=== PATIENT | male | born 1960 | race American Indian/Alaskan Native ===

== ENCOUNTER 2017-10-07 11:08 | Inpatient (IN) | payer OTHER ==
[2017-10-07] MEDS ORDERED: NACL 0.9% 500 ML 500 ML IV ONE ×2 (11:24→14:42)
[2017-10-07] MEDS ORDERED: TYLENOL ONE (11:25)
[2017-10-07] MEDS ORDERED: VANCOMYCIN PHARMACY TO DOSE IV SCH (12:00)
[2017-10-07 12:17] LABS: Basophils # (Auto) 0.2 K/mm3 (0.0-0.1); Basophils % (Auto) 1.1 % (0.0-1.8); Eosinophils # (Auto) 0.2 K/mm3 (0.0-0.4); Eosinophils % (Auto) 1.1 % (0.0-4.3); Hematocrit 20.1 % (35.5-45.6); Hemoglobin 6.8 gm/dl (11.8-15.2); Lymphocytes % (Auto) 10.6 % (13.4-35.0); Mean Corpuscular HGB Conc 34 % (32-34); Mean Corpuscular Hemoglobin 35 pg (28-32); Mean Corpuscular Volume 102 fl (84-94); Monocytes # (Auto) 1.4 K/mm3 (0.0-0.8); Monocytes % (Auto) 7.4 % (0.0-7.3); Platelet Count 184 K/mm3 (140-440); Red Blood Count 1.97 M/mm3 (3.65-5.03); Red Cell Distribution Width 16.8 % (13.2-15.2)
[2017-10-07 12:30] LABS: INR 1.36 (0.87-1.13)
[2017-10-07 12:31] LABS: Partial Thromboplastin Time 54.1 Sec. (24.2-36.6)
--- NOTE | 2017-10-07 12:38 | XRay Report ---
AP CHEST :10/07/17 11:08:00 CLINICAL: Sepsis COMPARISON:None. FINDINGS: Normal heart and pulmonary vasculature. The lungs are normally expanded and clear. The bones and soft tissues are normal. IMPRESSION: Normal chest.
[2017-10-07] MEDS ORDERED: ZOSYN/NS 4.5GM/100ML 4.5 GM/100 ML VIAL IV ONE (13:00)
[2017-10-07 13:14] LABS: Albumin 2.4 g/dL (3.9-5); Calcium 7.9 mg/dL (8.4-10.2); Creatine Kinase MB < 1.0 ng/mL (0.0-4.0)
--- NOTE | 2017-10-07 13:45 | Emergency Department Report ---
ED General Adult HPI - General Chief complaint: Dyspnea/Respdistress Stated complaint: CHEST PAIN Time Seen by Provider: 10/07/17 13:22 Source: patient Mode of arrival: Ambulatory Limitations: No Limitations - History of Present Illness Initial comments: This is a 57 year old man that states that he's never been hospitalized and has no chronic medical problems. He states that he doesn't drink "much". However, on further discussion the patient is a regular consumer of vodka and states he does get shaky/tremulous when he does not consume alcohol. He has never had a seizure nor any recent fall, injury or loss of consciousness. He states he was not aware of having a fever nor has he had chills or rigors. He has had abdominal pain which has been largely in the epigastric area. He states that he has been having diarrhea but it is not black. He states he's been unable to eat recently. He denies any signs of GI bleeding at all. He states he has not been taking Pepto-Bismol or [id number] medications. The patient states that he works at [employer]. His coworkers have been encouraging him to go to the doctor. They finally insisted upon it as a noticed he was jaundiced. He continued to work up until coming to the emergency department. He states he has been very short of breath going up stairs. He denies chest pain or cough. Patient states he's had no recent travel. He denies sick contacts as well. He states he has been since July. He states he has had a single partner for 26 years and thus could not have HIV. He has not had a recent test thereof. He has no history of known hepatitis or liver disease. -: Gradual, week(s) Location: abdomen Radiation: non-radiation Quality: aching Consistency: intermittent Improves with: none Worsens with: eating Associated Symptoms: shortness of breath, weakness Treatments Prior to Arrival: none - Related Data Allergies Allergy/AdvReac Type Severity Reaction Status Date / Time No Known Allergies Allergy Verified 10/07/17 11:38 ED Review of Systems ROS: Stated complaint: CHEST PAIN Other details as noted in HPI Constitutional: weakness. denies: chills, fever Eyes: denies: eye pain, eye discharge, vision change ENT: denies: ear pain, throat pain Respiratory: shortness of breath, SOB with exertion. denies: cough, wheezing Cardiovascular: denies: chest pain, palpitations Endocrine: no symptoms reported Gastrointestinal: abdominal pain, nausea, diarrhea Genitourinary: denies: urgency, dysuria Musculoskeletal: denies: back pain, joint swelling, arthralgia Skin: denies: rash, lesions Neurological: denies: headache, weakness, paresthesias Psychiatric: denies: anxiety, depression Hematological/Lymphatic: denies: easy bleeding, easy bruising ED Past Medical Hx - Past Medical History Previous Medical History?: No - Surgical History Past Surgical History?: No - Social History Smoking Status: Never Smoker Substance Use Type: Alcohol ED Physical Exam - General Limitations: No Limitations General appearance: other (chronically ill-appearing) - Head Head exam: Present: atraumatic, other (some alopecia) - Eye Eye exam: Present: PERRL, EOMI, scleral icterus - ENT ENT exam: Present: mucous membranes dry (no yeast noted), other (Black tongue) - Neck Neck exam: Present: normal inspection - Respiratory Respiratory exam: Present: normal lung sounds bilaterally. Absent: respiratory distress - Cardiovascular Cardiovascular Exam: Present: regular rate, normal rhythm. Absent: systolic murmur, diastolic murmur, rubs, gallop - GI/Abdominal GI/Abdominal exam: Present: soft, distended, tenderness (some epigastric discomfort to palpation), normal bowel sounds, organomegaly (hepatomegaly), pulsatile mass. Absent: guarding, rebound, rigid, mass, bruit - Extremities Exam Extremities exam: Present: normal inspection - Back Exam Back exam: Present: normal inspection. Absent: CVA tenderness (R), CVA tenderness (L) - Neurological Exam Neurological exam: Present: alert, oriented X3, CN II-XII intact. Absent: motor sensory deficit - Psychiatric Psychiatric exam: Present: normal affect, normal mood - Skin Skin exam: Present: warm, dry, intact, normal color. Absent: rash ED Course Vital Signs 10/07/17 11:15 Temperature 102.7 F H Pulse Rate 127 H Respiratory 22 Rate Blood Pressure 154/83 O2 Sat by Pulse 100 Oximetry - Reevaluation(s) Reevaluation #1: The patient was treated empirically for sepsis with IV fluids, Zosyn, vancomycin. A transfusion of 2 units of blood was ordered. The patient was given Protonix as I suspect GI bleeding would be not unlikely in this patient. He is given a milligram of Ativan prophylactically as he will undoubtably withdraw from alcohol. A CT of his abdomen was suggestive of cirrhosis, cholecystitis and cholelithiasis. Dr. Fitzpatrick is aware of all of the above findings. I have also ordered an ultrasound to further delineate the patient's gallbladder pathology and to help eliminate the possibility of hepatic obstruction. A lipase is pending. Further care and Consultation will be at the discretion of Dr. Fitzpatrick. 10/07/17 15:51 ED Medical Decision Making - Lab Data Result diagrams: 10/07/17 11:44 10/07/17 11:44 Laboratory Results - last 24 hr 10/07/17 10/07/17 10/07/17 11:44 11:44 11:44 WBC 19.3 H RBC 1.97 L Hgb 6.8 L Hct 20.1 L MCV 102 H MCH 35 H MCHC 34 RDW 16.8 H Plt Count 184 Lymph % (Auto) 10.6 L Wilkes % (Auto) 7.4 H Eos % (Auto) 1.1 Baso % (Auto) 1.1 Lymph # 2.0 Wilkes # 1.4 H Eos # 0.2 Baso # 0.2 H Seg Neutrophils % 79.8 H Seg Neutrophils # 15.4 H PT 17.6 H INR 1.36 H APTT 54.1 H VBG pH Sodium 131 L Potassium 4.9 Chloride 94.8 L Carbon Dioxide 16 L Anion Gap 25 BUN 27 H Creatinine 1.6 H Estimated GFR 54 BUN/Creatinine Ratio 17 Glucose 116 H Lactic Acid Calcium 7.9 L Magnesium Total Bilirubin 13.40 H AST 223 H ALT 28 Alkaline Phosphatase 107 Ammonia Total Creatine Kinase CK-MB (CK-2) CK-MB (CK-2) Rel Index Troponin T NT-Pro-B Natriuret Pep Total Protein 9.6 H Albumin 2.4 L Albumin/Globulin Ratio 0.3 Blood Type Antibody Screen 10/07/17 10/07/17 10/07/17 11:44 11:44 11:44 WBC RBC Hgb Hct MCV MCH MCHC RDW Plt Count Lymph % (Auto) [place] % (Auto) Eos % (Auto) Baso % (Auto) Lymph # Wilkes # Eos # Baso # Seg Neutrophils % Seg Neutrophils # PT INR APTT VBG pH 7.363 Sodium Potassium Chloride Carbon Dioxide Anion Gap BUN Creatinine Estimated GFR BUN/Creatinine Ratio Glucose Lactic Acid 4.50 H* Calcium Magnesium 1.30 L Total Bilirubin AST ALT Alkaline Phosphatase Ammonia Total Creatine Kinase 31 L CK-MB (CK-2) < 1.0 CK-MB (CK-2) Rel Index 3.2 Troponin T NT-Pro-B Natriuret Pep 766.8 Total Protein Albumin Albumin/Globulin Ratio Blood Type Antibody Screen 10/07/17 10/07/17 10/07/17 11:44 11:44 11:44 WBC RBC Hgb Hct MCV MCH MCHC RDW Plt Count Lymph % (Auto) [place] % (Auto) Eos % (Auto) Baso % (Auto) Lymph # [place] # Eos # Baso # Seg Neutrophils % Seg Neutrophils # PT INR APTT VBG pH Sodium Potassium Chloride Carbon Dioxide Anion Gap BUN Creatinine Estimated GFR BUN/Creatinine Ratio Glucose Lactic Acid Calcium Magnesium Total Bilirubin AST ALT Alkaline Phosphatase Ammonia 55.0 Total Creatine Kinase CK-MB (CK-2) CK-MB (CK-2) Rel Index Troponin T 0.022 NT-Pro-B Natriuret Pep Total Protein Albumin Albumin/Globulin Ratio Blood Type O POSITIVE Antibody Screen Negative - EKG Data -: EKG Interpreted by Me EKG shows normal: sinus rhythm Rate: tachycardia - EKG Data Interpretation: other (left axis deviation, nonspecific ST-T wave changes) - Radiology Data Radiology results: report reviewed interpreted by me: Chest x-ray no acute process. CT of the abdomen and pelvis per the radiologist cirrhosis consider primary biliary cirrhosis. Roll of the gallbladder mildly thickened. Calcified gallstones dependent in the gallbladder. Sludge present. Denies specific lymph nodes in the retroperitoneum. Diverticulosis. Critical Care Time: Yes Critical care time in (mins) excluding proc time.: 110 Critical care attestation.: If time is entered above; I have spent that time in minutes in the direct care of this critically ill patient, excluding procedure time. ED Disposition Clinical Impression: Acute cholecystitis Sepsis Qualifiers: Sepsis type: sepsis due to unspecified organism Qualified Code(s): A41.9 - Sepsis, unspecified organism Cirrhosis Qualifiers: Hepatic cirrhosis type: unspecified hepatic cirrhosis Ascites presence: without ascites Qualified Code(s): K74.60 - Unspecified cirrhosis of liver Anemia Qualifiers: Anemia type: unspecified type Qualified Code(s): D64.9 - Anemia, unspecified Disposition: DC-09 OP ADMIT IP TO THIS HOSP Is pt being admited?: Yes Does the pt Need Aspirin: No (suspect GI bleeding) Condition: Stable Referrals: LIBBY WILKERSON MD [Primary Care Provider] - 3-5 Days
[2017-10-07] MEDS ORDERED: NACL 0.9% 1000 ML 1,000 ML ONE (13:51)
[2017-10-07] MEDS ORDERED: VANCOMYCIN 1,500 MG in NACL 0.9% 500 ML 500 ML IV ONE (14:00)
--- NOTE | 2017-10-07 14:59 | Cat Scan Report ---
FINAL REPORT PROCEDURE: CT ABDOMEN PELVIS WO CON TECHNIQUE: Computerized axial tomography of the abdomen and pelvis was performed without intravenous contrast. This study is performed without intravascular contrast material and its sensitivity for abdominal and pelvic pathology, including neoplasms, inflammation, abscess, free fluid, thrombosis, arterial dissection and infarction, is reduced compared with a contrast enhanced study. HISTORY: juandice sepsis COMPARISON: No prior studies are available for comparison. FINDINGS: Lower Lung richards: No focal abnormality seen. Upper Abdomen: There is heterogeneous lacy decreased density extending throughout the left lobe of the liver and a large portion of the right lobe of the liver. The appearance suggest cirrhosis, consider primary biliary cirrhosis. The liver is otherwise unremarkable. Carroll of the gallbladder mildly thickened. There appear to be partially calcified gallstones lying dependently in the gallbladder. There may also be sludge present. The adrenal glands, the pancreas and spleen are unremarkable although suboptimally seen due to motion artifact. Kidneys, Ureters and Urinary bladder: Kidneys and ureters are unremarkable. Urinary bladder is only partially filled and shows no gross abnormality. Retroperitoneum: No evidence of abdominal aortic aneurysm. Minimal calcified plaquing seen in the iliac arteries. Nonspecific subcentimeter lymph nodes are seen in the retroperitoneum. No pathologically enlarged lymph nodes are identified. Bowel: Mild diverticulosis seen left side of the colon without evidence of diverticulitis. There is no evidence of bowel obstruction ascites or free intraperitoneal gas. There is mild decreased density seen in the submucosal layer throughout the right side of the colon and proximal transverse colon. I cannot exclude a mild nonspecific colitis. Bowel loops otherwise are unremarkable. No evidence of bowel obstruction ascites or free intraperitoneal gas. Mild diverticulosis is seen in the terminal ileum. The appendix is not clearly visualized. Reproductive organs: There is mild nonspecific prostate enlargement. Other: No acute bony abnormalities are seen. IMPRESSION: Heterogeneous lacy decreased density extending throughout the left lobe of the liver and a large portion the right lobe of the liver. The appearance suggest cirrhosis, consider primary biliary cirrhosis. Scattered low-density masses not entirely excluded. Consider follow-up contrast-enhanced CT scan for further evaluation. Graph cholelithiasis. Gallbladder carroll mildly thickened suggesting chronic or acute cholecystitis. Mild colonic diverticulosis left side of the colon without evidence of diverticulitis. Mild prominence submucosal layer right side of the colon. I cannot exclude a mild nonspecific colitis. There is mild nonspecific prostate enlargement. No other abnormalities are visualized
[2017-10-07] MEDS ORDERED: PROTONIX IV ONE (15:00)
[2017-10-07] MEDS ORDERED: SODIUM CHLORIDE FLUSH SYRINGE 10 ML IV PRN (16:22)
[2017-10-07] MEDS ORDERED: ZOFRAN IV PRN (16:22)
[2017-10-07] MEDS ORDERED: TYLENOL PO PRN (16:22)
--- NOTE | 2017-10-07 16:27 | Ultrasound Report ---
FINAL REPORT PROCEDURE: US ABDOMEN LIMITED TECHNIQUE: Real-time sonography was performed of the right upper quadrant with image documentation. CPT 16633 HISTORY: abd pain cholecystitis COMPARISON: Prior CT scan abdomen and pelvis 10/07/2017 FINDINGS: Examination the right upper quadrant shows is multiple gallstones within the gallbladder. There also appears to be sludge present. Gallbladder was not tender to palpation although the carroll mildly thickened. I cannot exclude chronic cholecystitis. Liver echogenicity appears heterogeneous. No discrete masses are seen. No ascites is visualized. The right kidney is unremarkable measuring 12 centimeters in length. The pancreas is not visualized. Common bile duct is normal caliber measuring 4.7 millimeters.. IMPRESSION: There is evidence of cholelithiasis. There also appears to be sludge present. Gallbladder carroll mildly thickened although not tender to palpation. The appearance may be related to chronic cholecystitis. If further evaluation is clinically indicated nuclear medicine HIDA scan could be performed. Heterogeneous echogenicity of the liver diffusely without discrete masses may represent cirrhosis. No ascites is visualized. Right kidney is unremarkable. The pancreas is not visualized.
[2017-10-07] MEDS ORDERED: LIBRIUM PO PRN ×2 (16:34)
[2017-10-07] MEDS ORDERED: HALDOL IV PRN (16:34)
[2017-10-07] MEDS ORDERED: ATIVAN IV PRN ×3 (16:34)
--- NOTE | 2017-10-07 16:42 | History and Physical Report ---
History of Present Illness Date of examination: 10/07/17 Date of admission: 10/07/2017 Chief complaint: Chief complaint: Abdominal pain for 2 days Diarrhea for 2 days. History of present illness: History of Present Illness: 57-year-old -[place] male with no significant past medical history comes in for abdominal pain in the epigastric and right upper quadrant. Abdominal pain has been going on for the last 2-3 days. Also associated with fever. No chills. No dysuria. Patient consumes alcohol regular basis but not excessively. Patient apparently gets tremulous and does not drink alcohol for a few days. Pain is a moderate scale of 1-10. Intermittent and sharp in nature. Patient has been feeling very weak and loss of appetite. No exacerbating or relieving factors except that food intake exacerbates pain sometimes. Patient also has loose stools, couple of times a day. No blood or melena. Past Medical History Previous Medical History?: No Surgical History Past Surgical History?: No Social History Smoking Status: Never Smoker Substance Use Type: Alcohol on a regular basis in the form of vodka. Family history: Hypertension Review of Systems ROS: Stated complaint: CHEST PAIN Other details as noted in HPI Constitutional: weakness. denies: chills, fever Eyes: denies: eye pain, eye discharge, vision change ENT: denies: ear pain, throat pain Respiratory: shortness of breath, SOB with exertion. denies: cough, wheezing Cardiovascular: denies: chest pain, palpitations Endocrine: no symptoms reported Gastrointestinal: abdominal pain, nausea, diarrhea Genitourinary: denies: urgency, dysuria Musculoskeletal: denies: back pain, joint swelling, arthralgia Skin: denies: rash, lesions Neurological: denies: headache, weakness, paresthesias Psychiatric: denies: anxiety, depression Hematological/Lymphatic: denies: easy bleeding, easy bruising Medications and Allergies Allergies Allergy/AdvReac Type Severity Reaction Status Date / Time No Known Allergies Allergy Verified 10/07/17 11:38 Active Meds: Active Medications Acetaminophen (Tylenol) 650 mg PO Q4H PRN PRN Reason: Pain MILD(1-3)/Fever >100.5/MEYER Chlordiazepoxide HCl (Librium) 50 mg PO Q1H PRN PRN Reason: CIWA-Ar 8-15 Chlordiazepoxide HCl (Librium) 100 mg PO Q1H PRN PRN Reason: CIWA-Ar 16-25 Haloperidol Lactate (Haldol) 5 mg IV Q1H PRN PRN Reason: Unrespon. to mult. doses BZD's Heparin Sodium (Porcine) (Heparin) 5,000 unit SUB-Q Q12HR DAJA Vancomycin HCl (Vancomycin/0.45 Ns 1 Gm/250 Ml) 1 gm in 250 mls @ 167.007 mls/ hr IV Q24H DAJA Sodium Chloride (Nacl 0.9% 1000 Ml) 1,000 mls @ 100 mls/hr IV DIRECT DAJA Lorazepam (Ativan) 2 mg IV Q1H PRN PRN Reason: CIWA-Ar 8-15 Lorazepam (Ativan) 4 mg IV Q1H PRN PRN Reason: CIWA-Ar 16-25 Lorazepam (Ativan) 4 mg IV Q15MIN PRN PRN Reason: CIWA-Ar >25 Morphine Sulfate (Morphine) 2 mg IV Q4H PRN PRN Reason: Pain, Moderate (4-6) Ondansetron HCl (Zofran) 4 mg IV Q8H PRN PRN Reason: Nausea And Vomiting Phenobarbital (Phenobarbital) 130 mg IV Q15M PRN PRN Reason: DT's refractory to BZD's Sodium Chloride (Sodium Chloride Flush Syringe 10 Ml) 10 ml IV BID DAJA Sodium Chloride (Sodium Chloride Flush Syringe 10 Ml) 10 ml IV PRN PRN PRN Reason: LINE FLUSH Vancomycin HCl (Vancomycin Pharmacy To Dose) 1 each IV PKCONSULT DAJA; Protocol Exam - Physical Exam Narrative exam: Laying in bed comfortably in slight distress secondary to abdominal pain - Constitutional Vitals: Temp Pulse Resp BP Pulse Ox 102.7 F H 127 H 22 154/83 100 10/07/17 11:15 10/07/17 11:15 10/07/17 11:15 10/07/17 11:15 10/07/17 11:15 General appearance: Present: no acute distress, well-nourished - EENT Eyes: Present: PERRL ENT: hearing intact, clear oral mucosa - Neck Neck: Present: supple, normal ROM - Respiratory Respiratory effort: normal Respiratory: bilateral: CTA - Cardiovascular Heart rate: 76 Rhythm: regular Heart Sounds: Present: S1 & S2. Absent: rub, click - Extremities Extremities: no ischemia, pulses intact, pulses symmetrical, No edema Peripheral Pulses: within normal limits - Abdominal General gastrointestinal: Present: soft, tender (right upper quadrant tenderness ), non-distended, normal bowel sounds Male genitourinary: Present: normal - Rectal Rectal Exam: stool brown - Integumentary Integumentary: Present: clear, warm, dry - Musculoskeletal Musculoskeletal: gait normal, strength equal bilaterally - Psychiatric Psychiatric: appropriate mood/affect, intact judgment & insight - Neurologic Neurologic: CNII-XII intact, moves all extremities - Allied Health Allied health notes reviewed: nursing, case management Results - Labs CBC & Chem 7: 10/07/17 11:44 10/07/17 11:44 Labs: Laboratory Last Values WBC 19.3 K/mm3 (4.5-11.0) H 10/07/17 11:44 RBC 1.97 M/mm3 (3.65-5.03) L 10/07/17 11:44 Hgb 6.8 gm/dl (11.8-15.2) L 10/07/17 11:44 Hct 20.1 % (35.5-45.6) L 10/07/17 11:44 MCV 102 fl (84-94) H 10/07/17 11:44 MCH 35 pg (28-32) H 10/07/17 11:44 MCHC 34 % (32-34) 10/07/17 11:44 RDW 16.8 % (13.2-15.2) H 10/07/17 11:44 Plt Count 184 K/mm3 (140-440) 10/07/17 11:44 Lymph % (Auto) 10.6 % (13.4-35.0) L 10/07/17 11:44 [place] % (Auto) 7.4 % (0.0-7.3) H 10/07/17 11:44 Eos % (Auto) 1.1 % (0.0-4.3) 10/07/17 11:44 Baso % (Auto) 1.1 % (0.0-1.8) 10/07/17 11:44 Lymph # 2.0 K/mm3 (1.2-5.4) 10/07/17 11:44 [place] # 1.4 K/mm3 (0.0-0.8) H 10/07/17 11:44 Eos # 0.2 K/mm3 (0.0-0.4) 10/07/17 11:44 Baso # 0.2 K/mm3 (0.0-0.1) H 10/07/17 11:44 Seg Neutrophils % 79.8 % (40.0-70.0) H 10/07/17 11:44 Seg Neutrophils # 15.4 K/mm3 (1.8-7.7) H 10/07/17 11:44 PT 17.6 Sec. (12.2-14.9) H 10/07/17 11:44 INR 1.36 (0.87-1.13) H 10/07/17 11:44 APTT 54.1 Sec. (24.2-36.6) H 10/07/17 11:44 VBG pH 7.363 (7.320-7.420) 10/07/17 11:44 Sodium 131 mmol/L (137-145) L 10/07/17 11:44 Potassium 4.9 mmol/L (3.6-5.0) 10/07/17 11:44 Chloride 94.8 mmol/L (98-107) L 10/07/17 11:44 Carbon Dioxide 16 mmol/L (22-30) L 10/07/17 11:44 Anion Gap 25 mmol/L 10/07/17 11:44 BUN 27 mg/dL (9-20) H 10/07/17 11:44 Creatinine 1.6 mg/dL (0.8-1.5) H 10/07/17 11:44 Estimated GFR 54 ml/min 10/07/17 11:44 BUN/Creatinine Ratio 17 % 10/07/17 11:44 Glucose 116 mg/dL (75-100) H 10/07/17 11:44 Lactic Acid 4.50 mmol/L (0.7-2.0) H* 10/07/17 14:29 Calcium 7.9 mg/dL (8.4-10.2) L 10/07/17 11:44 Magnesium 1.30 mg/dL (1.7-2.3) L 10/07/17 11:44 Total Bilirubin 13.40 mg/dL (0.1-1.2) H 10/07/17 11:44 AST 223 units/L (5-40) H 10/07/17 11:44 ALT 28 units/L (7-56) 10/07/17 11:44 Alkaline Phosphatase 107 units/L (35-129) 10/07/17 11:44 Ammonia 55.0 umol/L (25-60) 10/07/17 11:44 Total Creatine Kinase 31 units/L (55-170) L 10/07/17 11:44 CK-MB (CK-2) < 1.0 ng/mL (0.0-4.0) 10/07/17 11:44 CK-MB (CK-2) Rel Index 3.2 (0-4) 10/07/17 11:44 Troponin T 0.022 ng/mL (0.00-0.029) 10/07/17 11:44 NT-Pro-B Natriuret Pep 766.8 pg/mL (0-900) 10/07/17 11:44 Total Protein 9.6 g/dL (6.3-8.2) H 10/07/17 11:44 Albumin 2.4 g/dL (3.9-5) L 10/07/17 11:44 Albumin/Globulin Ratio 0.3 % 10/07/17 11:44 Lipase 61 units/L (13-60) H 10/07/17 11:44 Blood Type O POSITIVE 10/07/17 11:44 Antibody Screen Negative 10/07/17 11:44 Crossmatch See Detail 10/07/17 11:44 - Imaging and Cardiology Imaging and Cardiology: CT abdomen and pelvis IMPRESSION: Heterogeneous lacy decreased density extending throughout the left lobe of the liver and a large portion the right lobe of the liver. The appearance suggest cirrhosis, consider primary biliary cirrhosis. Scattered low-density masses not entirely excluded. Consider follow-up contrast-enhanced CT scan for further evaluation. Graph cholelithiasis. Gallbladder carroll mildly thickened suggesting chronic or acute cholecystitis. Mild colonic diverticulosis left side of the colon without evidence of diverticulitis. Mild prominence submucosal layer right side of the colon. I cannot exclude a mild nonspecific colitis. There is mild nonspecific prostate enlargement. No other abnormalities are visualized Assessment and Plan Advance Directives: Yes (full code) VTE prophylaxis?: Chemical Plan of care discussed with patient/family: Yes - Patient Problems (1) Acute cholecystitis Current Visit: Yes Status: Acute Plan to address problem: CT abdomen and clinical findings suggestive of acute cholecystitis. Also there may be common bile duct obstruction because of his bilirubin being in the 13.40. Also transaminitis present. AST is 223. ALT is 28. MRCP ordered Surgery consult and GI consult ordered. Patient is started on IV antibiotics--IV Zosyn. (2) Sepsis Current Visit: Yes Status: Acute Qualifiers: Sepsis type: sepsis due to unspecified organism Qualified Code(s): A41.9 - Sepsis, unspecified organism Plan to address problem: Probably from the cholecystitis. Patient initiated on IV Zosyn. Lactic acid is high 4.50 and a repeat on is 4.20 (3) Anemia Current Visit: Yes Status: Chronic Qualifiers: Anemia type: unspecified type Qualified Code(s): D64.9 - Anemia, unspecified Plan to address problem: Probably nutritional, his alcoholism. MCV and MCH are high. I'm expecting B12 and folic acid deficiency. Iron and folic acid and B12 levels ordered (4) Acute kidney injury Current Visit: Yes Status: Acute Plan to address problem: Consider vasomotor nephropathy and dehydration I reviewed fluids for the time being and recheck the BUN/creatinine (5) Hypergammaglobulinemia, unspecified Current Visit: Yes Status: Chronic Plan to address problem: SPEP and UPEP ordered Probably secondary to cirrhosis Patient may have hepatic cirrhosis secondary to alcohol dependence (6) EtOH dependence Current Visit: Yes Status: Chronic Qualifiers: Substance use status: uncomplicated Qualified Code(s): F10.20 - Alcohol dependence, uncomplicated Plan to address problem: CIWA protocol was added to prevent DTs (7) DVT prophylaxis Current Visit: Yes Status: Acute Plan to address problem: Heparin added
[2017-10-07] MEDS ORDERED: NACL 0.9% 1000 ML 1,000 ML IV SCH (17:00)
[2017-10-07] MEDS ORDERED: DILAUDID IV PRN ×2 (17:04→17:08)
[2017-10-07] MEDS ORDERED: NACL 0.9% 500 ML 500 ML ONE (17:05)
[2017-10-07 17:22] LABS: Albumin 2.1 g/dL (3.9-5); Bilirubin,Direct 8.8 mg/dL (0-0.2)
[2017-10-07 17:25] LABS: Iron 48 ug/dL (49-181); Total Iron Binding Capacity 82 mcg/dL (250-450)
[2017-10-07 17:26] LABS: % Iron Saturation 67.14 %
[2017-10-07 20:35] LABS: Bilirubin,Urine MOD (Negative); Blood,Urine NEG (Negative); Color,Urine Amber (Yellow); RBC,Urine < 1.0 /HPF (0.0-6.0); WBC,Urine < 1.0 /HPF (0.0-6.0)
[2017-10-07 20:37] LABS: Ictotest,Urine Positive (Negative)
[2017-10-07] MEDS: HEPARIN SUB-Q SCH (21:28)
[2017-10-07] MEDS: ZOSYN/NS 4.5GM/100ML 4.5 GM/100 ML VIAL IV SCH (21:28)
[2017-10-07] MEDS: SODIUM CHLORIDE FLUSH SYRINGE 10 ML IV SCH (21:29)
[2017-10-07] MEDS: MORPHINE IV PRN (23:50)
[2017-10-08] MEDS: ZOSYN/NS 4.5GM/100ML 4.5 GM/100 ML VIAL IV SCH ×3 (05:48→21:57)
[2017-10-08 09:23] LABS: Basophils # (Auto) 0.1 K/mm3 (0.0-0.1); Basophils % (Auto) 0.7 % (0.0-1.8); Eosinophils # (Auto) 0.2 K/mm3 (0.0-0.4); Eosinophils % (Auto) 1.4 % (0.0-4.3); Hematocrit 23.7 % (35.5-45.6); Hemoglobin 8.1 gm/dl (11.8-15.2); Lymphocytes # (Auto) 1.5 K/mm3 (1.2-5.4); Lymphocytes % (Auto) 9.1 % (13.4-35.0); Mean Corpuscular HGB Conc 34 % (32-34); Mean Corpuscular Hemoglobin 33 pg (28-32); Mean Corpuscular Volume 97 fl (84-94); Monocytes # (Auto) 0.9 K/mm3 (0.0-0.8); Monocytes % (Auto) 5.6 % (0.0-7.3); Platelet Count 153 K/mm3 (140-440); Red Blood Count 2.43 M/mm3 (3.65-5.03); Red Cell Distribution Width 17.5 % (13.2-15.2)
[2017-10-08 09:42] LABS: Alanine Aminotransferase 22 units/L (7-56); Albumin 1.9 g/dL (3.9-5); BUN/Creatinine Ratio 20; Blood Urea Nitrogen 28 mg/dL (9-20); Calcium 7.3 mg/dL (8.4-10.2); Hemolysis Index 0
[2017-10-08] MEDS: HEPARIN SUB-Q SCH (11:16)
[2017-10-08] MEDS: SODIUM CHLORIDE FLUSH SYRINGE 10 ML IV SCH ×2 (11:17→21:58)
--- NOTE | 2017-10-08 12:58 | Magnetic Resonance Report ---
MRI ABDOMEN WITH MRCP: 10/08/17 16:30:00 CLINICAL: Jaundice COMPARISON:CT abdomen and pelvis without contrast 10/07/17 TECHNIQUE: Axial T1 in phase and opposed phase, coronal and axial T2 and axial T2 fat sat sequences plus thin and thick slab MRCP sequences on a 1.5 Jacy magnet without contrast. FINDINGS: A fair quality examination with moderate respiratory motion on the exam. The liver is enlarged with the right lobe measuring 23 cm in length. Surface nodularity of both the left and right lobe. Diffuse irregular hypodense infiltrative hepatic masses involve much of the left lobe and most of the right lobe. Relative sparing of the posterior right lobe. There is a questionable oval circumscribed mass of the posterior left lobe lateral segment measuring 2.2 cm. It is only identified on the axial dual phase T1 sequences. The portal vein and its branches are small. No suggestion portal vein thrombosis. The superior mesenteric vein and splenic vein are patent. Suspect esophageal varices as well as splenic varices. The bile ducts are normal. The gallbladder is distended and contains dependent sludge. No evidence of cholelithiasis or choledocholithiasis. The stomach and pancreas are normal. The pancreatic duct is normal. Betzaida-hepatic ascites and perisplenic ascites. The aorta and inferior vena cava are normal. Small bilateral benign renal cysts in otherwise normal kidneys. The renal collecting systems and ureters are nondilated. IMPRESSION: 1. Hepatic cirrhosis and hepatomegaly with too numerous to count hepatic masses. 2. Hepatocellular carcinoma as well as metastatic disease are considerations. 3. Normal biliary tract. 4. Portal hypertension with esophageal and splenic varices. 5. Mild to moderate ascites.
[2017-10-08] MEDS ORDERED: VANCOMYCIN/0.45 NS 1 GM/250 ML 1 GM/250 ML BAG IV SCH (14:00)
--- NOTE | 2017-10-08 14:19 | Progress Note ---
Assessment and Plan /Metastatic hepatic disease vs hepatocellular carcinoma CT abdomen on admission was suggestive of possible cholecystitis. MRCP done today showed multiple hepatic lesion GI consult ordered, monitor LFT /SIRS Probably from metastatic disease all cx work up negative cont abx for now /Blood loss Anemia ? Likely from GI loss and history of alcoholism. MCV and MCH are high, could be from folic acid/B12 deficiency. ordered stool for occult blood, s/p 2 unit PRBC transfusion / Acute kidney injury Likely vasomotor nephropathy but cannot r/o hepatorenal syndrom, recheck the BUN /creatinine in the am / EtOH dependence CIWA protocol was added to prevent DTs / DVT prophylaxis, scd Brief history: 57-year-old -Cypriot male with history of alcohol abuse/dependence came in for abdominal pain in the epigastric and right upper quadrant. Radiological test: CT abdomen and pelvis: Heterogeneous lacy decreased density extending throughout the left lobe of the liver and a large portion the right lobe of the liver. The appearance suggest cirrhosis, consider primary biliary cirrhosis. Scattered low-density masses not entirely excluded. Consider follow-up contrast-enhanced CT scan for further evaluation. Graph cholelithiasis. Gallbladder carroll mildly thickened suggesting chronic or acute cholecystitis. Mild colonic diverticulosis left side of the colon without evidence of diverticulitis. Mild prominence submucosal layer right side of the colon. I cannot exclude a mild nonspecific colitis. There is mild nonspecific prostate enlargement. No other abnormalities are visualized MRCP: hepatic cirrhosis, numerous hepatic masses b/l, mild ascitis, portal HTN, esophageal varices. Hospitalist Physical exam: GENERAL: AAM lying on bed appeared to be in mild discomfort. HEENT: Normocephalic. Atraumatic. + conjunctival icterus. Patient has dry mucous membranes. NECK: Supple. Trachea midline. CHEST/LUNGS: Clear to auscultated bilaterally, breathing nonlabored. No wheezes crackles or rhonchi. HEART/CARDIOVASCULAR: Regular in rate and rhythm. S1 and S2 positive. ABDOMEN: Abdomen is distended, RUQ tenderness. Patient has normal bowel sounds. SKIN: There is no rash. Warm and dry. NEURO: No focal motor deficit. Follows command. MUSCULOSKELETAL: No joint effusion or tenderness. EXTRIMITY: No edema, no cyanosis or clubbing. PSYCH: Cooperative. Subjective Date of service: 10/08/17 Interval history: Patient seen and examined. Medical records and medication list reviewed. No acute event overnight noted by the RN. Patient denies any chest pain or difficulty breathing. Patient still has significant abdominal pain and had bowel movement today with a black stool Discussed plan of care at bedside with patient. Objective - Constitutional Vitals: Vital Signs - 12hr 10/08/17 10/08/17 10/08/17 02:33 02:37 02:56 Temperature 98.4 F 98.3 F Pulse Rate 78 88 86 Respiratory 20 18 Rate Blood Pressure 110/62 111/62 O2 Sat by Pulse 98 97 Oximetry 10/08/17 10/08/17 04:40 07:47 Temperature 98.1 F 99.1 F Pulse Rate 97 H Respiratory 18 18 Rate Blood Pressure 111/69 117/70 O2 Sat by Pulse 97 Oximetry - Labs CBC & Chem 7: 10/08/17 08:16 10/08/17 08:16 Labs: Abnormal lab results 10/07/17 10/07/17 10/07/17 Range/Units 11:44 11:44 14:29 WBC (4.5-11.0) K/mm3 RBC (3.65-5.03) M/mm3 Hgb (11.8-15.2) gm/dl Hct (35.5-45.6) % MCV (84-94) fl MCH (28-32) pg RDW (13.2-15.2) % Lymph % (Auto) (13.4-35.0) % [place] # (0.0-0.8) K/mm3 Seg Neutrophils % (40.0-70.0) % Seg Neutrophils # (1.8-7.7) K/mm3 Sodium (137-145) mmol/L Carbon Dioxide (22-30) mmol/L BUN (9-20) mg/dL Lactic Acid 4.50 H* (0.7-2.0) mmol/L Calcium (8.4-10.2) mg/dL Phosphorus (2.5-4.5) mg/dL Magnesium (1.7-2.3) mg/dL Iron (49-181) ug/dL TIBC (250-450) mcg/dL Transferrin (180-329) mg/dl Total Bilirubin (0.1-1.2) mg/dL Direct Bilirubin (0-0.2) mg/dL AST (5-40) units/L Total Protein (6.3-8.2) g/dL Albumin (3.9-5) g/dL Lipase 61 H (13-60) units/L Vitamin B12 (211-911) pg/mL Crossmatch See Detail 10/07/17 10/07/17 10/07/17 Range/Units 17:04 17:04 17:04 WBC (4.5-11.0) K/mm3 RBC (3.65-5.03) M/mm3 Hgb (11.8-15.2) gm/dl Hct (35.5-45.6) % MCV (84-94) fl MCH (28-32) pg RDW (13.2-15.2) % Lymph % (Auto) (13.4-35.0) % [place] # (0.0-0.8) K/mm3 Seg Neutrophils % (40.0-70.0) % Seg Neutrophils # (1.8-7.7) K/mm3 Sodium (137-145) mmol/L Carbon Dioxide (22-30) mmol/L BUN (9-20) mg/dL Lactic Acid 4.10 H* (0.7-2.0) mmol/L Calcium (8.4-10.2) mg/dL Phosphorus 1.70 L (2.5-4.5) mg/dL Magnesium 1.20 L (1.7-2.3) mg/dL Iron 47 L (49-181) ug/dL TIBC 70 L (250-450) mcg/dL Transferrin 70 L (180-329) mg/dl Total Bilirubin 12.00 H (0.1-1.2) mg/dL Direct Bilirubin 8.8 H (0-0.2) mg/dL AST 213 H (5-40) units/L Total Protein 8.7 H (6.3-8.2) g/dL Albumin 2.1 L (3.9-5) g/dL Lipase (13-60) units/L Vitamin B12 (211-911) pg/mL Crossmatch 10/07/17 10/07/17 10/07/17 Range/Units 17:04 17:04 20:05 WBC (4.5-11.0) K/mm3 RBC (3.65-5.03) M/mm3 Hgb (11.8-15.2) gm/dl Hct (35.5-45.6) % MCV (84-94) fl MCH (28-32) pg RDW (13.2-15.2) % Lymph % (Auto) (13.4-35.0) % [place] # (0.0-0.8) K/mm3 Seg Neutrophils % (40.0-70.0) % Seg Neutrophils # (1.8-7.7) K/mm3 Sodium (137-145) mmol/L Carbon Dioxide (22-30) mmol/L BUN (9-20) mg/dL Lactic Acid 3.20 H* (0.7-2.0) mmol/L Calcium (8.4-10.2) mg/dL Phosphorus (2.5-4.5) mg/dL Magnesium (1.7-2.3) mg/dL Iron 48 L (49-181) ug/dL TIBC 82 L (250-450) mcg/dL Transferrin (180-329) mg/dl Total Bilirubin (0.1-1.2) mg/dL Direct Bilirubin (0-0.2) mg/dL AST (5-40) units/L Total Protein (6.3-8.2) g/dL Albumin (3.9-5) g/dL Lipase (13-60) units/L Vitamin B12 1123 H (211-911) pg/mL Crossmatch 10/07/17 10/08/17 10/08/17 Range/Units 22:05 08:16 08:16 WBC 16.5 H (4.5-11.0) K/mm3 RBC 2.43 L (3.65-5.03) M/mm3 Hgb 8.1 L (11.8-15.2) gm/dl Hct 23.7 L (35.5-45.6) % MCV 97 H (84-94) fl MCH 33 H (28-32) pg RDW 17.5 H (13.2-15.2) % Lymph % (Auto) 9.1 L (13.4-35.0) % [place] # 0.9 H (0.0-0.8) K/mm3 Seg Neutrophils % 83.2 H (40.0-70.0) % Seg Neutrophils # 13.7 H (1.8-7.7) K/mm3 Sodium 131 L (137-145) mmol/L Carbon Dioxide 17 L (22-30) mmol/L BUN 28 H (9-20) mg/dL Lactic Acid 2.90 H* (0.7-2.0) mmol/L Calcium 7.3 L (8.4-10.2) mg/dL Phosphorus (2.5-4.5) mg/dL Magnesium (1.7-2.3) mg/dL Iron (49-181) ug/dL TIBC (250-450) mcg/dL Transferrin (180-329) mg/dl Total Bilirubin 11.90 H (0.1-1.2) mg/dL Direct Bilirubin (0-0.2) mg/dL AST 177 H (5-40) units/L Total Protein 8.3 H (6.3-8.2) g/dL Albumin 1.9 L (3.9-5) g/dL Lipase (13-60) units/L Vitamin B12 (211-911) pg/mL Crossmatch
--- NOTE | 2017-10-08 15:27 | Consultation ---
History of Present Illness - Reason for Consult Consult date: 10/08/17 sepsis Requesting physician: MIRTA GARZA - History of Present Illness 57 y/o male with no significant past medical history; admitted on 10/07/17 due to 3-day history of epigastric and bilateral flank abdominal pain associated with nausea, vomiting. Denies hematemesis and melena. Patient also c/o subjective fever, chills and anorexia. Reports several loose stools. Denies any recent trips, outdoor activities. Patient drinks daily beers and vodka. In the ED, temp 102.7, HR 127, R 22, O2 sat 100, BP 154/83. WBC 19.3. Hg 6.8. Plat 184. Creat 1.6. Lactate 4.5. AST 223. Total bili 13. UA +bilirubin. CXR neg. CT abd heterogeneous liver densities. Abd US cholelythiasis and sludge, GB carroll mildly thickened Heterogeneous echodensity of the liver. Cholangiopancreatographic MRI showed hepatic cirrhosis, hepatomegaly, too numerous to count hepatic masses, mild to moderate ascitis, portal HTN with esophageal and splenic varices. Micro: Blood cultures: 10/07 ngtd Urine cultures: 10/07 ngtd Current Antimicrobials: Zosyn Previous Antimicrobials: Past History Past Medical History: No medical history Past Surgical History: No surgical history Social history: alcohol abuse Family history: no significant family history Medications and Allergies Allergies Allergy/AdvReac Type Severity Reaction Status Date / Time No Known Allergies Allergy Verified 10/07/17 11:38 Active Meds: Active Medications Acetaminophen (Tylenol) 650 mg PO Q4H PRN PRN Reason: Pain MILD(1-3)/Fever >100.5/MEYER Haloperidol Lactate (Haldol) 5 mg IV Q1H PRN PRN Reason: Unrespon. to mult. doses BZD's Hydromorphone HCl (Dilaudid) 2 mg IV Q3H PRN PRN Reason: Pain , Severe (7-10) Piperacillin Sod/Tazobactam Sod (Zosyn/Ns 4.5gm/100ml) 4.5 gm in 100 mls @ 200 mls/hr IV Q8HR [facility]; Protocol Last Admin: 10/08/17 14:56 Dose: 200 mls/hr Dextrose/Sodium Chloride (D5ns) 1,000 mls @ 42 mls/hr IV DIRECT DAJA Lorazepam (Ativan) 2 mg IV Q1H PRN PRN Reason: CIWA-Ar 8-15 Lorazepam (Ativan) 4 mg IV Q1H PRN PRN Reason: CIWA-Ar 16-25 Morphine Sulfate (Morphine) 2 mg IV Q4H PRN PRN Reason: Pain, Moderate (4-6) Last Admin: 10/07/17 23:50 Dose: 2 mg Ondansetron HCl (Zofran) 4 mg IV Q8H PRN PRN Reason: Nausea And Vomiting Sodium Chloride (Sodium Chloride Flush Syringe 10 Ml) 10 ml IV BID DAJA Last Admin: 10/08/17 11:17 Dose: 10 ml Sodium Chloride (Sodium Chloride Flush Syringe 10 Ml) 10 ml IV PRN PRN PRN Reason: LINE FLUSH Physical Examination - Physical Exam Narrative exam: General appearance: Alert in NAD, conversant Eyes: anicteric sclerae, +marked conjunctival jaundice; no lid-lag; PERRLA HENT: Atraumatic; oropharynx clear with moist mucous membranes and no mucosal ulcerations/no oral thrush; normal hard and soft palate. Normal external ears. Neck: Trachea midline; supple, no thyromegaly or lymphadenopathy Lungs: CTA, with normal respiratory effort and no intercostal retractions CV: RRR, no murmurs Abdomen: Soft, non-tender; +ascitis Extremities: No peripheral edema or extremity lymphadenopathy Skin: +jaundice Psych: Appropriate affect, alert and oriented to person, place and time. Neuro: alert and oriented x 3. Moving all extermities Lines: No CVL / PICC - Constitutional Vitals: Vital Signs Temp Pulse Resp BP Pulse Ox 99.1 F 97 H 18 117/70 97 10/08/17 07:47 10/08/17 04:40 10/08/17 07:47 10/08/17 07:47 10/08/17 04:40 Temperature -Last 24 Hours Temperature 99.1 F Temperature 98.1 F Temperature 98.3 F Temperature 98.4 F Temperature 98.4 F Temperature 98.6 F Temperature 98.4 F Temperature 98.8 F Temperature 98.8 F Temperature 98.4 F Temperature 98.4 F Temperature 98.9 F Temperature 100 F Temperature 100 F Results - Labs CBC & Chem 7: 10/08/17 08:16 04/22/18 08:16 Labs: Abnormal lab results 10/07/17 10/07/17 10/07/17 Range/Units 11:44 11:44 17:04 WBC (4.5-11.0) K/mm3 RBC (3.65-5.03) M/mm3 Hgb (11.8-15.2) gm/dl Hct (35.5-45.6) % MCV (84-94) fl MCH (28-32) pg RDW (13.2-15.2) % Lymph % (Auto) (13.4-35.0) % [place] # (0.0-0.8) K/mm3 Seg Neutrophils % (40.0-70.0) % Seg Neutrophils # (1.8-7.7) K/mm3 Sodium (137-145) mmol/L Carbon Dioxide (22-30) mmol/L BUN (9-20) mg/dL Lactic Acid 4.10 H* (0.7-2.0) mmol/L Calcium (8.4-10.2) mg/dL Phosphorus (2.5-4.5) mg/dL Magnesium (1.7-2.3) mg/dL Iron (49-181) ug/dL TIBC (250-450) mcg/dL Transferrin (180-329) mg/dl Total Bilirubin (0.1-1.2) mg/dL Direct Bilirubin (0-0.2) mg/dL AST (5-40) units/L Total Protein (6.3-8.2) g/dL Albumin (3.9-5) g/dL Lipase 61 H (13-60) units/L Vitamin B12 (211-911) pg/mL Crossmatch See Detail 10/07/17 10/07/17 10/07/17 Range/Units 17:04 17:04 17:04 WBC (4.5-11.0) K/mm3 RBC (3.65-5.03) M/mm3 Hgb (11.8-15.2) gm/dl Hct (35.5-45.6) % MCV (84-94) fl MCH (28-32) pg RDW (13.2-15.2) % Lymph % (Auto) (13.4-35.0) % [place] # (0.0-0.8) K/mm3 Seg Neutrophils % (40.0-70.0) % Seg Neutrophils # (1.8-7.7) K/mm3 Sodium (137-145) mmol/L Carbon Dioxide (22-30) mmol/L BUN (9-20) mg/dL Lactic Acid (0.7-2.0) mmol/L Calcium (8.4-10.2) mg/dL Phosphorus 1.70 L (2.5-4.5) mg/dL Magnesium 1.20 L (1.7-2.3) mg/dL Iron 47 L (49-181) ug/dL TIBC 70 L (250-450) mcg/dL Transferrin 70 L (180-329) mg/dl Total Bilirubin 12.00 H (0.1-1.2) mg/dL Direct Bilirubin 8.8 H (0-0.2) mg/dL AST 213 H (5-40) units/L Total Protein 8.7 H (6.3-8.2) g/dL Albumin 2.1 L (3.9-5) g/dL Lipase (13-60) units/L Vitamin B12 1123 H (211-911) pg/mL Crossmatch 10/07/17 10/07/17 10/07/17 Range/Units 17:04 20:05 22:05 WBC (4.5-11.0) K/mm3 RBC (3.65-5.03) M/mm3 Hgb (11.8-15.2) gm/dl Hct (35.5-45.6) % MCV (84-94) fl MCH (28-32) pg RDW (13.2-15.2) % Lymph % (Auto) (13.4-35.0) % [place] # (0.0-0.8) K/mm3 Seg Neutrophils % (40.0-70.0) % Seg Neutrophils # (1.8-7.7) K/mm3 Sodium (137-145) mmol/L Carbon Dioxide (22-30) mmol/L BUN (9-20) mg/dL Lactic Acid 3.20 H* 2.90 H* (0.7-2.0) mmol/L Calcium (8.4-10.2) mg/dL Phosphorus (2.5-4.5) mg/dL Magnesium (1.7-2.3) mg/dL Iron 48 L (49-181) ug/dL TIBC 82 L (250-450) mcg/dL Transferrin (180-329) mg/dl Total Bilirubin (0.1-1.2) mg/dL Direct Bilirubin (0-0.2) mg/dL AST (5-40) units/L Total Protein (6.3-8.2) g/dL Albumin (3.9-5) g/dL Lipase (13-60) units/L Vitamin B12 (211-911) pg/mL Crossmatch 10/08/17 10/08/17 Range/Units 08:16 08:16 WBC 16.5 H (4.5-11.0) K/mm3 RBC 2.43 L (3.65-5.03) M/mm3 Hgb 8.1 L (11.8-15.2) gm/dl Hct 23.7 L (35.5-45.6) % MCV 97 H (84-94) fl MCH 33 H (28-32) pg RDW 17.5 H (13.2-15.2) % Lymph % (Auto) 9.1 L (13.4-35.0) % [place] # 0.9 H (0.0-0.8) K/mm3 Seg Neutrophils % 83.2 H (40.0-70.0) % Seg Neutrophils # 13.7 H (1.8-7.7) K/mm3 Sodium 131 L (137-145) mmol/L Carbon Dioxide 17 L (22-30) mmol/L BUN 28 H (9-20) mg/dL Lactic Acid (0.7-2.0) mmol/L Calcium 7.3 L (8.4-10.2) mg/dL Phosphorus (2.5-4.5) mg/dL Magnesium (1.7-2.3) mg/dL Iron (49-181) ug/dL TIBC (250-450) mcg/dL Transferrin (180-329) mg/dl Total Bilirubin 11.90 H (0.1-1.2) mg/dL Direct Bilirubin (0-0.2) mg/dL AST 177 H (5-40) units/L Total Protein 8.3 H (6.3-8.2) g/dL Albumin 1.9 L (3.9-5) g/dL Lipase (13-60) units/L Vitamin B12 (211-911) pg/mL Crossmatch Assessment and Plan Assessment: 1) Sepsis: Present on admission, manifested by fever, tachycardia, leukocytosis , lactate. Etiology most likely ?cholangitis ?leptospirosis?SBP. 2) Elevated AST and bilirubin associated with fever: likely liver masses from ? hepatocarcinoma -Abd US cholelythiasis and sludge, GB carroll mildly thickened Heterogeneous echodensity of the liver. -Cholangiopancreatographic MRI showed hepatic cirrhosis, hepatomegaly, too numerous to count hepatic masses, mild to moderate ascitis, portal HTN with esophageal and splenic varices. 3) ETOH abuse: Patient drinks daily beers and vodka. 4) KAMILAH Plan: -GI med consult, needs liver biopsy -paracentensis to r/o SBP -C-reactive protein (CRP), viral hepatitis panel, HIV -check leptospira serology -add doxycycline IV -continue zosyn Thank you for your consultation, will follow up with you. Perlita North MD Infectious Diseases Specialist [facility] ([facility]) M [phone] O [phone]
[2017-10-08] MEDS: D5NS 1,000 ML IV SCH (17:20)
--- NOTE | 2017-10-08 21:44 | Consultation ---
REFERRING PHYSICIAN: Aleida Franco MD INDICATION: 1. Increased liver function tests. 2. Abdominal pain. HISTORY OF PRESENT ILLNESS: The patient is a 57-year-old black male with no significant past medical history, who presents complaining of abdominal pain. The patient reports 2 to 3 days of abdominal pain and weakness. The patient does report that he has been having some upper abdominal pain, which has been ongoing for a week, but it is only over the last couple of days, he has also noted that his eyes were yellow. The patient does report a history of some alcohol abuse and has developed tremors from that in the past. He reports no significant other GI problems or complaints except for some general weakness and mild weight loss. Denies family history of colon cancer. Denies any other specific complaints. PAST MEDICAL HISTORY: Negative. MEDICATIONS: See chart. ALLERGIES: No known drug allergies. SOCIAL HISTORY: Reports regular vodka use. FAMILY HISTORY: Negative for colon cancer, IBD, or liver disease. REVIEW OF SYSTEMS: GENERAL: Reports weakness. HEENT: Reports yellow eyes. PULMONARY: Some mild shortness of breath. CARDIOVASCULAR: Denies chest pain. GASTROINTESTINAL: Reports upper abdominal pain. All points of 13-point review of systems otherwise negative. PHYSICAL EXAMINATION: VITAL SIGNS: Temperature of 98.1, pulse 97, respirations 18, blood pressure 111/69. GENERAL: Fairly nourished, but somewhat thin-appearing black male, in no acute distress. HEAD AND NECK: Pupils equal, round, and reactive and accommodation. PULMONARY: Clear to auscultation bilaterally. CARDIOVASCULAR: Regular rhythm, normal S1 and S2. ABDOMEN: Positive bowel sounds, soft. SKIN: No obvious rashes. LABORATORY DATA: Pertinent for white count of 16.5, hemoglobin and hematocrit of 8.1 and 23.7, platelet count of 153,000. Chem-7 within normal limits. Total bilirubin of 13.4. AST, ALT of 223 and 28, alkaline phosphatase of 107. Abdominal ultrasound showed evidence of cholelithiasis with sludge. There is also some thickening of the gallbladder wall. CT scan showed densities throughout the liver and cirrhotic-like appearance with cholelithiasis and signs suggestive of chronic or acute cholecystitis. ASSESSMENT AND PLAN: A 57-year-old black male presents with 1 week of upper abdominal pain with now increased liver function test, not consistent with an obstructive picture, now with noted CT scan with question of liver lesions. The patient has also had some weight loss. Concern for possible lung malignancy versus less likely infectious with possible versus other. PLAN: 1. Await MRI, magnetic resonance cholangiopancreatography as ordered. 2. Hepatitis related labs including acute hepatitis panel. 3. Follow LFTs. 4. Consider further intervention based on magnetic resonance cholangiopancreatography results and progress. JOB# [id number] [facility]
--- NOTE | 2017-10-08 21:53 | Progress Note ---
Assessment and Plan Full consult dictated 57 y/o male non specific RUQ & LUQ abd pain along with chest pain. neg N or V Abd soft, non tender at present. possible ascites? + hepatomegaly labs as below. CT abd, GB U/S & MRCP performed. Gallbladder sludge, possible stones. no real evidence of cholecystitis. Diffuse metastatic liver disease? R/O metastatic liver disease. Not a surgical candidate for cholecystectomy at this time. rec - liver biopsy. GI eval. possible onc eval pending liver biopsy will follow Selected Entries 10/08/17 19:36 Temperature 98.4 F Pulse Rate 105 H Respiratory 18 Rate Blood Pressure 138/75 Laboratory Tests 10/07/17 10/07/17 10/08/17 11:44 17:04 08:16 WBC Hgb Hct PT 17.6 H INR 1.36 H APTT 54.1 H Sodium Potassium Chloride Carbon Dioxide BUN Creatinine Lactic Acid 1.70 Total Bilirubin Direct Bilirubin 8.8 H AST ALT Alkaline Phosphatase 10/08/17 10/08/17 08:16 08:16 WBC 16.5 H Hgb 8.1 L Hct 23.7 L PT INR APTT Sodium 131 L Potassium 4.3 Chloride 98.1 Carbon Dioxide 17 L BUN 28 H Creatinine 1.4 Lactic Acid Total Bilirubin 11.90 H Direct Bilirubin AST 177 H ALT 22 Alkaline Phosphatase 83 Objective Vital Signs - 12hr 10/08/17 10/08/17 10/08/17 10:00 15:41 19:36 Temperature 98.5 F 98.4 F Pulse Rate 94 H 105 H Pulse Rate [ 92 H Left Radial] Pulse Rate [ 92 H Right Radial] Respiratory 20 18 18 Rate Blood Pressure 127/76 138/75 O2 Sat by Pulse 97 100 Oximetry - Labs 10/08/17 08:16 10/08/17 08:16 Diabetes panel 10/08/17 Range/Units 08:16 Sodium 131 L (137-145) mmol/L Potassium 4.3 (3.6-5.0) mmol/L Chloride 98.1 (98-107) mmol/L Carbon Dioxide 17 L (22-30) mmol/L BUN 28 H (9-20) mg/dL Creatinine 1.4 (0.8-1.5) mg/dL Glucose 94 (75-100) mg/dL Calcium 7.3 L (8.4-10.2) mg/dL AST 177 H (5-40) units/L ALT 22 (7-56) units/L Alkaline Phosphatase 83 (35-129) units/L Total Protein 8.3 H (6.3-8.2) g/dL Albumin 1.9 L (3.9-5) g/dL Calcium panel 10/08/17 Range/Units 08:16 Calcium 7.3 L (8.4-10.2) mg/dL Albumin 1.9 L (3.9-5) g/dL Pituitary panel 10/08/17 Range/Units 08:16 Sodium 131 L (137-145) mmol/L Potassium 4.3 (3.6-5.0) mmol/L Chloride 98.1 (98-107) mmol/L Carbon Dioxide 17 L (22-30) mmol/L BUN 28 H (9-20) mg/dL Creatinine 1.4 (0.8-1.5) mg/dL Glucose 94 (75-100) mg/dL Calcium 7.3 L (8.4-10.2) mg/dL Adrenal panel 10/08/17 Range/Units 08:16 Sodium 131 L (137-145) mmol/L Potassium 4.3 (3.6-5.0) mmol/L Chloride 98.1 (98-107) mmol/L Carbon Dioxide 17 L (22-30) mmol/L BUN 28 H (9-20) mg/dL Creatinine 1.4 (0.8-1.5) mg/dL Glucose 94 (75-100) mg/dL Calcium 7.3 L (8.4-10.2) mg/dL Total Bilirubin 11.90 H (0.1-1.2) mg/dL AST 177 H (5-40) units/L ALT 22 (7-56) units/L Alkaline Phosphatase 83 (35-129) units/L Total Protein 8.3 H (6.3-8.2) g/dL Albumin 1.9 L (3.9-5) g/dL
[2017-10-08] MEDS: DOXYCYCLINE HYCLATE 100 MG in NACL 0.9% 250ML 250 ML IV SCH (22:30)
[2017-10-09] MEDS: ZOSYN/NS 4.5GM/100ML 4.5 GM/100 ML VIAL IV SCH ×3 (05:34→21:20)
[2017-10-09 07:24] LABS: Basophils # (Auto) 0.2 K/mm3 (0.0-0.1); Basophils % (Auto) 1.2 % (0.0-1.8); Eosinophils # (Auto) 0.2 K/mm3 (0.0-0.4); Eosinophils % (Auto) 1.6 % (0.0-4.3); Hematocrit 22.1 % (35.5-45.6); Hemoglobin 7.4 gm/dl (11.8-15.2); Lymphocytes % (Auto) 13.2 % (13.4-35.0); Mean Corpuscular HGB Conc 34 % (32-34); Mean Corpuscular Hemoglobin 33 pg (28-32); Mean Corpuscular Volume 98 fl (84-94); Monocytes # (Auto) 1.1 K/mm3 (0.0-0.8); Monocytes % (Auto) 7.2 % (0.0-7.3); Platelet Count 138 K/mm3 (140-440); Red Blood Count 2.25 M/mm3 (3.65-5.03); Red Cell Distribution Width 17.2 % (13.2-15.2)
[2017-10-09 07:32] LABS: Alanine Aminotransferase 21 units/L (7-56); Albumin 1.8 g/dL (3.9-5); BUN/Creatinine Ratio 21; Blood Urea Nitrogen 29 mg/dL (9-20); Calcium 7.1 mg/dL (8.4-10.2); Hemolysis Index 4
[2017-10-09] MEDS: DOXYCYCLINE HYCLATE 100 MG in NACL 0.9% 250ML 250 ML IV SCH (10:12)
[2017-10-09] MEDS: MORPHINE IV PRN ×2 (10:39→23:28)
[2017-10-09] MEDS: SODIUM CHLORIDE FLUSH SYRINGE 10 ML IV SCH ×2 (10:42→21:20)
--- NOTE | 2017-10-09 12:39 | Progress Note ---
Assessment and Plan Assessment: 1) Sepsis: fever resolved, leukocytosis better. Etiology most likely ? cholangitis ?leptospirosis?SBP. 2) Elevated AST and bilirubin associated with fever: likely liver masses from ? hepatocarcinoma -Abd US cholelythiasis and sludge, GB carroll mildly thickened Heterogeneous echodensity of the liver. -CRP8.4 -HIV neg -Cholangiopancreatographic MRI showed hepatic cirrhosis, hepatomegaly, too numerous to count hepatic masses, mild to moderate ascitis, portal HTN with esophageal and splenic varices. 3) ETOH abuse: Patient drinks daily beers and vodka. 4) KAMILAH- resolved Plan: -needs liver biopsy -Hem/onc consult -f/u viral hepatitis panel -f/u leptospira serology -continue zosyn and doxycycline Thank you for your consultation, will follow up with you. Perlita North MD Infectious Diseases Specialist [facility] M [phone] O [phone] Subjective Date of service: 10/09/17 Principal diagnosis: jaundice fever Interval history: Feels better, no fever. Micro: Blood cultures: 10/07 ngtd Urine cultures: 10/07 ngtd Current Antimicrobials: Zosyn Previous Antimicrobials: Objective - Exam Narrative Exam: General appearance: Alert in NAD, conversant Eyes: anicteric sclerae, +marked conjunctival jaundice; no lid-lag; PERRLA HENT: Atraumatic; oropharynx clear with moist mucous membranes and no mucosal ulcerations/no oral thrush; normal hard and soft palate. Normal external ears. Neck: Trachea midline; supple, no thyromegaly or lymphadenopathy Lungs: CTA, with normal respiratory effort and no intercostal retractions CV: RRR, no murmurs Abdomen: Soft, non-tender; +ascitis Extremities: No peripheral edema or extremity lymphadenopathy Skin: +jaundice Psych: Appropriate affect, alert and oriented to person, place and time. Neuro: alert and oriented x 3. Moving all extermities Lines: No CVL / PICC - Constitutional Vitals: Vital Signs Temp Pulse Resp BP Pulse Ox 98.0 F 99 H 18 116/69 98 10/09/17 04:19 10/09/17 09:26 10/09/17 10:00 10/09/17 04:19 10/09/17 04:19 Temperature -Last 24 Hours Temperature 98.0 F Temperature 98.1 F Temperature 98.4 F Temperature 98.5 F - Labs CBC & Chem 7: 10/09/17 06:43 10/09/17 06:43 Labs: Abnormal lab results 10/08/17 10/09/17 10/09/17 Range/Units 20:06 06:43 06:43 WBC 15.4 H (4.5-11.0) K/mm3 RBC 2.25 L (3.65-5.03) M/mm3 Hgb 7.4 L (11.8-15.2) gm/dl Hct 22.1 L (35.5-45.6) % MCV 98 H (84-94) fl MCH 33 H (28-32) pg RDW 17.2 H (13.2-15.2) % Plt Count 138 L (140-440) K/mm3 Lymph % (Auto) 13.2 L (13.4-35.0) % [place] # 1.1 H (0.0-0.8) K/mm3 Baso # 0.2 H (0.0-0.1) K/mm3 Seg Neutrophils % 76.8 H (40.0-70.0) % Seg Neutrophils # 11.9 H (1.8-7.7) K/mm3 Sodium 129 L (137-145) mmol/L Chloride 97.2 L (98-107) mmol/L Carbon Dioxide 15 L (22-30) mmol/L BUN 29 H (9-20) mg/dL Calcium 7.1 L (8.4-10.2) mg/dL Total Bilirubin 12.20 H (0.1-1.2) mg/dL AST 165 H (5-40) units/L C-Reactive Protein 8.40 H (0.00-1.30) mg/dL Albumin 1.8 L (3.9-5) g/dL
--- NOTE | 2017-10-09 14:01 | Progress Note ---
Assessment and Plan Pt status quo. Abd soft low h/h. consider blood transfusion. rec d/c sub q heparin and correct clotting studies prior to liver biopsy await biopsy results Selected Entries 10/09/17 10/09/17 04:19 12:24 Temperature 98.0 F Pulse Rate 93 H Respiratory 18 Rate Blood Pressure 115/65 Laboratory Tests 10/09/17 10/09/17 06:43 06:43 WBC 15.4 H Hgb 7.4 L Hct 22.1 L Sodium 129 L Chloride 97.2 L Objective Vital Signs - 12hr 10/09/17 10/09/17 10/09/17 04:00 04:19 09:26 Temperature 98.0 F Pulse Rate 95 H 103 H 99 H Respiratory 18 Rate Respiratory Rate [Abdomen] Blood Pressure 116/69 O2 Sat by Pulse 98 Oximetry 10/09/17 10/09/17 10:00 12:24 Temperature Pulse Rate 93 H Respiratory 18 Rate Respiratory 18 Rate [Abdomen] Blood Pressure 115/65 O2 Sat by Pulse 95 Oximetry - Labs 10/09/17 06:43 10/09/17 06:43 Diabetes panel 10/09/17 Range/Units 06:43 Sodium 129 L (137-145) mmol/L Potassium 4.1 (3.6-5.0) mmol/L Chloride 97.2 L (98-107) mmol/L Carbon Dioxide 15 L (22-30) mmol/L BUN 29 H (9-20) mg/dL Creatinine 1.4 (0.8-1.5) mg/dL Glucose 91 (75-100) mg/dL Calcium 7.1 L (8.4-10.2) mg/dL AST 165 H (5-40) units/L ALT 21 (7-56) units/L Alkaline Phosphatase 74 (35-129) units/L Total Protein 7.6 (6.3-8.2) g/dL Albumin 1.8 L (3.9-5) g/dL Calcium panel 10/09/17 Range/Units 06:43 Calcium 7.1 L (8.4-10.2) mg/dL Albumin 1.8 L (3.9-5) g/dL Pituitary panel 10/09/17 Range/Units 06:43 Sodium 129 L (137-145) mmol/L Potassium 4.1 (3.6-5.0) mmol/L Chloride 97.2 L (98-107) mmol/L Carbon Dioxide 15 L (22-30) mmol/L BUN 29 H (9-20) mg/dL Creatinine 1.4 (0.8-1.5) mg/dL Glucose 91 (75-100) mg/dL Calcium 7.1 L (8.4-10.2) mg/dL Adrenal panel 10/09/17 Range/Units 06:43 Sodium 129 L (137-145) mmol/L Potassium 4.1 (3.6-5.0) mmol/L Chloride 97.2 L (98-107) mmol/L Carbon Dioxide 15 L (22-30) mmol/L BUN 29 H (9-20) mg/dL Creatinine 1.4 (0.8-1.5) mg/dL Glucose 91 (75-100) mg/dL Calcium 7.1 L (8.4-10.2) mg/dL Total Bilirubin 12.20 H (0.1-1.2) mg/dL AST 165 H (5-40) units/L ALT 21 (7-56) units/L Alkaline Phosphatase 74 (35-129) units/L Total Protein 7.6 (6.3-8.2) g/dL Albumin 1.8 L (3.9-5) g/dL
--- NOTE | 2017-10-09 14:12 | Consultation ---
REASON FOR CONSULTATION: Rule out cholecystitis. HISTORY OF PRESENT ILLNESS: The patient is a 57-year-old gentleman, who presented to the hospital with recent history of vague generalized abdominal pain. The pain appears to be more so at the right upper quadrant and left upper quadrants of the abdomen. Also, states he has had some " Denied any nausea or vomiting and appears to be tolerating his diet well. PAST MEDICAL HISTORY: Negative. PAST SURGICAL HISTORY: Negative. ALLERGIES: No known allergies. MEDICATIONS: No medications. FAMILY HISTORY: Negative. SOCIAL HISTORY: Drinks beer and vodka what appears to be daily basis. Denies any smoking. REVIEW OF SYSTEMS: Noncontributory. PHYSICAL EXAMINATION: GENERAL: At this time reveals the patient to be awake, alert, cooperative, in no acute distress. VITAL SIGNS: Show him to be afebrile with temperature of 98.4, blood pressure 138/75, pulse is 105, respirations of 18. ABDOMEN: Examination of the abdomen reveals to be soft, nontender. There is possibly some ascites noted and certainly appears to be some hepatomegaly, but again the abdomen is nontender. Bowel sounds are present. LABORATORY DATA: Lab work at present includes a CBC which shows a white count of 16.5, H and H is 8.1 and 23.7. Electrolytes are somewhat abnormal with low sodium of 131, potassium of 4.3, chloride of 98, BUN is 28 and creatinine is 1.4. Lactic acid was high at admission at 2.9, currently is 1.7. Liver functions show very high total bilirubin of 12, direct of 8.8, indirect is 3.2, alkaline phosphatase is 91, AST 177, ALT is 22. Clotting studies were also abnormally elevated with PT of 17.6, INR and PTT of 54.1. CT scan of the abdomen was performed, which revealed densities throughout the left lobe of the liver as well as large portion of the right lobe of the liver. Cirrhosis is also suggested. Further studies including ultrasound and possible MR recommended. Gallbladder ultrasound was performed, which reveals evidence of cholelithiasis and some sludge. MRCP shows hepatic cirrhosis and hepatomegaly with too numerous to count hepatic masses, hepatocellular CA as well as possible metastatic disease cannot be excluded. The biliary tract is described as normal. No evidence of choledocholithiasis. IMPRESSION: At this time is that of a 57-year-old gentleman with most likely primary hepatocellular cancer versus diffuse hepatic metastatic disease. Although, the patient does have gallstones, the gallbladder and biliary tract are not appeared to be the primary source of the patient's symptoms at this time. Also, description of varices is noted on the x-ray reports. RECOMMENDATION: At this time, recommend liver biopsy, also GI evaluation, possible Oncology evaluation pending liver biopsy results. The patient does not appear to be surgical candidate for any kind of gallbladder surgery at this time. We will follow with you for few days until all results. Thank you very much for consultation. JOB# [id number] DOUGLAS/ELVER
[2017-10-09] MEDS: VIBRAMYCIN PO SCH ×2 (14:37→21:20)
--- NOTE | 2017-10-09 15:40 | Progress Note ---
Assessment and Plan /Metastatic hepatic disease vs hepatocellular carcinoma CT abdomen on admission was suggestive of possible cholecystitis. MRCP showed multiple hepatic lesion GI consult ordered, monitor LFT Plan for hepatic biopsy /SIRS Probably from metastatic disease all cx work up negative cont abx for now /Blood loss Anemia ? Likely from GI loss and history of alcoholism. MCV and MCH are high, could be from folic acid/B12 deficiency. ordered stool for occult blood, s/p 2 unit PRBC transfusion / Acute kidney injury Likely vasomotor nephropathy but cannot r/o hepatorenal syndrom, recheck the BUN /creatinine in the am / EtOH dependence CIWA protocol was added to prevent DTs / DVT prophylaxis, scd Brief history: 57-year-old -[place] male with history of alcohol abuse/dependence came in for abdominal pain in the epigastric and right upper quadrant. Radiological test: CT abdomen and pelvis: Heterogeneous lacy decreased density extending throughout the left lobe of the liver and a large portion the right lobe of the liver. The appearance suggest cirrhosis, consider primary biliary cirrhosis. Scattered low-density masses not entirely excluded. Consider follow-up contrast-enhanced CT scan for further evaluation. Graph cholelithiasis. Gallbladder carroll mildly thickened suggesting chronic or acute cholecystitis. Mild colonic diverticulosis left side of the colon without evidence of diverticulitis. Mild prominence submucosal layer right side of the colon. I cannot exclude a mild nonspecific colitis. There is mild nonspecific prostate enlargement. No other abnormalities are visualized MRCP: hepatic cirrhosis, numerous hepatic masses b/l, mild ascitis, portal HTN, esophageal varices. Hospitalist Physical exam: GENERAL: AAM lying on bed appeared to be in mild discomfort. HEENT: Normocephalic. Atraumatic. + conjunctival icterus. Patient has dry mucous membranes. NECK: Supple. Trachea midline. CHEST/LUNGS: Clear to auscultated bilaterally, breathing nonlabored. No wheezes crackles or rhonchi. HEART/CARDIOVASCULAR: Regular in rate and rhythm. S1 and S2 positive. ABDOMEN: Abdomen is distended, RUQ tenderness. Patient has normal bowel sounds. SKIN: There is no rash. Warm and dry. NEURO: No focal motor deficit. Follows command. MUSCULOSKELETAL: No joint effusion or tenderness. EXTRIMITY: No edema, no cyanosis or clubbing. PSYCH: Cooperative. Subjective Date of service: 10/09/17 Principal diagnosis: jaundice fever Interval history: Patient seen and examined. Medical records and medication list reviewed. No acute event overnight noted by the RN. Patient denies any chest pain or difficulty breathing. Patient still has significant abdominal pain and tolerating diet Discussed plan of care at bedside with patient. Objective - Constitutional Vitals: Vital Signs - 12hr 10/09/17 10/09/17 10/09/17 04:00 04:19 09:26 Temperature 98.0 F Pulse Rate 95 H 103 H 99 H Respiratory 18 Rate Respiratory Rate [Abdomen] Blood Pressure 116/69 O2 Sat by Pulse 98 Oximetry 10/09/17 10/09/17 10:00 12:24 Temperature Pulse Rate 93 H Respiratory 18 Rate Respiratory 18 Rate [Abdomen] Blood Pressure 115/65 O2 Sat by Pulse 95 Oximetry - Labs CBC & Chem 7: 10/09/17 06:43 10/09/17 06:43 Labs: Abnormal lab results 10/08/17 10/09/17 10/09/17 Range/Units 20:06 06:43 06:43 WBC 15.4 H (4.5-11.0) K/mm3 RBC 2.25 L (3.65-5.03) M/mm3 Hgb 7.4 L (11.8-15.2) gm/dl Hct 22.1 L (35.5-45.6) % MCV 98 H (84-94) fl MCH 33 H (28-32) pg RDW 17.2 H (13.2-15.2) % Plt Count 138 L (140-440) K/mm3 Lymph % (Auto) 13.2 L (13.4-35.0) % [place] # 1.1 H (0.0-0.8) K/mm3 Baso # 0.2 H (0.0-0.1) K/mm3 Seg Neutrophils % 76.8 H (40.0-70.0) % Seg Neutrophils # 11.9 H (1.8-7.7) K/mm3 Sodium 129 L (137-145) mmol/L Chloride 97.2 L (98-107) mmol/L Carbon Dioxide 15 L (22-30) mmol/L BUN 29 H (9-20) mg/dL Calcium 7.1 L (8.4-10.2) mg/dL Total Bilirubin 12.20 H (0.1-1.2) mg/dL AST 165 H (5-40) units/L C-Reactive Protein 8.40 H (0.00-1.30) mg/dL Albumin 1.8 L (3.9-5) g/dL
--- NOTE | 2017-10-09 17:29 | Gastroenterology Progress Note ---
Assessment and Plan - Patient Problems (1) Liver masses Current Visit: Yes Status: Acute Plan to address problem: - Tumor markers and hepatitis panel is still pending. - Will plan biopsy of the masses to assess further. - Pending results may need upper/lower endoscopy to search for primary mass, but nothing noted on the abdominal CT scan. - Add MVI therapy given chronic EtOH disease. Subjective Date of service: 10/09/17 Principal diagnosis: Liver Masses Interval history: The patient still has RUQ pain, with nausea but no vomiting or melena. Objective - Constitutional Vitals: Temp Pulse Resp BP Pulse Ox 98.0 F 93 H 18 115/65 95 10/09/17 04:19 10/09/17 12:24 10/09/17 12:24 10/09/17 12:24 10/09/17 12:24 General appearance: mild distress - EENT Eyes: PERRL, scleral icterus - Respiratory Respiratory effort: normal Respiratory: bilateral: CTA - Cardiovascular Rhythm: regular Heart Sounds: Present: S1 & S2 - Gastrointestinal General gastrointestinal: Present: soft, tender (RUQ without guard), non- distended - Labs CBC & Chem 7: 10/09/17 06:43 10/09/17 06:43 Labs: Laboratory Results - last 24 hr 10/08/17 10/08/17 10/09/17 20:06 20:06 06:43 WBC 15.4 H RBC 2.25 L Hgb 7.4 L Hct 22.1 L MCV 98 H MCH 33 H MCHC 34 RDW 17.2 H Plt Count 138 L Lymph % (Auto) 13.2 L [place] % (Auto) 7.2 Eos % (Auto) 1.6 Baso % (Auto) 1.2 Lymph # 2.0 [place] # 1.1 H Eos # 0.2 Baso # 0.2 H Seg Neutrophils % 76.8 H Seg Neutrophils # 11.9 H Sodium Potassium Chloride Carbon Dioxide Anion Gap BUN Creatinine Estimated GFR BUN/Creatinine Ratio Glucose Calcium Total Bilirubin AST ALT Alkaline Phosphatase C-Reactive Protein 8.40 H Total Protein Albumin Albumin/Globulin Ratio HIV 1&2 Antibody Rapid Non react HIV P24 Antigen Non react 10/09/17 06:43 WBC RBC Hgb Hct MCV MCH MCHC RDW Plt Count Lymph % (Auto) [place] % (Auto) Eos % (Auto) Baso % (Auto) Lymph # [place] # Eos # Baso # Seg Neutrophils % Seg Neutrophils # Sodium 129 L Potassium 4.1 Chloride 97.2 L Carbon Dioxide 15 L Anion Gap 21 BUN 29 H Creatinine 1.4 Estimated GFR > 60 BUN/Creatinine Ratio 21 Glucose 91 Calcium 7.1 L Total Bilirubin 12.20 H AST 165 H ALT 21 Alkaline Phosphatase 74 C-Reactive Protein Total Protein 7.6 Albumin 1.8 L Albumin/Globulin Ratio 0.3 HIV 1&2 Antibody Rapid HIV P24 Antigen
[2017-10-09] MEDS: D5NS 1,000 ML IV SCH (21:21)
[2017-10-10] MEDS: ZOSYN/NS 4.5GM/100ML 4.5 GM/100 ML VIAL IV SCH ×3 (05:53→21:37)
[2017-10-10 07:07] LABS: INR 1.47 (0.87-1.13)
[2017-10-10 07:25] LABS: Alanine Aminotransferase 23 units/L (7-56); BUN/Creatinine Ratio 20; Blood Urea Nitrogen 28 mg/dL (9-20); Calcium 7.3 mg/dL (8.4-10.2); Hemolysis Index 0
[2017-10-10 07:39] LABS: Hepatitis A Antibody IgM Non-Reactive (NonReactive); Hepatitis B Core IgM Non-Reactive (NonReactive); Hepatitis B Surface Antigen Non-Reactive (Negative); Hepatitis C Virus Antibody Non-Reactive (NonReactive)
[2017-10-10] MEDS ORDERED: SUBLIMAZE ONE (08:34)
[2017-10-10] MEDS ORDERED: VERSED IV ONE ×2 (08:34→08:42)
[2017-10-10] MEDS ORDERED: SUBLIMAZE IV ONE (08:42)
[2017-10-10] MEDS: THERAGRAN-M Tab PO SCH (10:00)
--- NOTE | 2017-10-10 10:44 | Cat Scan Report ---
CT BIOPSY LIVER History: Liver masses, jaundice. Description of procedure: Informed consent was obtained. Sterile technique was utilized. 1% lidocaine for skin anesthesia. Moderate sedation was accomplished with Versed and fentanyl. The patient was sedated for 20 minutes. Independent cardiorespiratory monitoring by RN. Intraobserver time of [address] guidance, a 19-gauge introducer needle was advanced within a heterogeneous area in the anterior left hepatic lobe. 2 separate 2.2 cm 20-gauge core biopsies were obtained. The pathologist was present and deemed the biopsy adequate. Followup scan demonstrated no evidence for hemorrhage. The patient tolerated the procedure without difficulty. Impression: Successful CT-guided biopsy of the liver as described.
--- NOTE | 2017-10-10 11:21 | Progress Note ---
Assessment and Plan /Metastatic hepatic disease vs hepatocellular carcinoma CT abdomen on admission was suggestive of possible cholecystitis. MRCP showed multiple hepatic lesion GI consult ordered, monitor LFT s/p hepatic biopsy today, will follow result /SIRS Probably from metastatic disease all cx work up negative cont abx for now /Blood loss Anemia ? Likely from GI loss and history of alcoholism. MCV and MCH are high, could be from folic acid/B12 deficiency. positive stool for occult blood in 2nd set, s/p 2 unit PRBC transfusion / Acute kidney injury Likely vasomotor nephropathy but cannot r/o hepatorenal syndrom, BUN/creatinine now stable /Coagulopathy with elevated LFT - likely from hepatic disease -will give one unit FFP as he had liver biopsy today / EtOH dependence CIWA protocol was added to prevent DTs placed on MVI / DVT prophylaxis, scd Brief history: 57-year-old -[place]ish male with history of alcohol abuse/dependence came in for abdominal pain in the epigastric and right upper quadrant. Radiological test: CT abdomen and pelvis: Heterogeneous lacy decreased density extending throughout the left lobe of the liver and a large portion the right lobe of the liver. The appearance suggest cirrhosis, consider primary biliary cirrhosis. Scattered low-density masses not entirely excluded. Consider follow-up contrast-enhanced CT scan for further evaluation. Graph cholelithiasis. Gallbladder carroll mildly thickened suggesting chronic or acute cholecystitis. Mild colonic diverticulosis left side of the colon without evidence of diverticulitis. Mild prominence submucosal layer right side of the colon. I cannot exclude a mild nonspecific colitis. There is mild nonspecific prostate enlargement. No other abnormalities are visualized MRCP: hepatic cirrhosis, numerous hepatic masses b/l, mild ascitis, portal HTN, esophageal varices. Hospitalist Physical exam: GENERAL: AAM lying on bed appeared to be in mild discomfort. HEENT: Normocephalic. Atraumatic. + conjunctival icterus. Patient has dry mucous membranes. NECK: Supple. Trachea midline. CHEST/LUNGS: Clear to auscultated bilaterally, breathing nonlabored. No wheezes crackles or rhonchi. HEART/CARDIOVASCULAR: Regular in rate and rhythm. S1 and S2 positive. ABDOMEN: Abdomen is distended, RUQ tenderness. Patient has normal bowel sounds. SKIN: There is no rash. Warm and dry. NEURO: No focal motor deficit. Follows command. MUSCULOSKELETAL: No joint effusion or tenderness. EXTRIMITY: No edema, no cyanosis or clubbing. PSYCH: Cooperative. Subjective Date of service: 10/10/17 Principal diagnosis: jaundice fever Interval history: Patient seen and examined. Medical records and medication list reviewed. No acute event overnight noted by the RN. Patient denies any chest pain or difficulty breathing. Patient still has significant abdominal pain and tolerating diet s/p liver biopsy today Discussed plan of care at bedside with patient. Objective - Constitutional Vitals: Vital Signs - 12hr 10/09/17 10/10/17 10/10/17 23:40 04:00 04:08 Temperature 99.5 F 98.8 F Pulse Rate 103 H 91 H 97 H Pulse Rate [ Intra-Procedure ] Pulse Rate [ Left Radial] Pulse Rate [ Post-Procedure] Pulse Rate [Pre -Procedure] Pulse Rate [ Right Radial] Respiratory 20 20 Rate Respiratory Rate [Intra- Procedure] Respiratory Rate [Post- Procedure] Respiratory Rate [Pre- Procedure] Blood Pressure 133/75 133/74 Blood Pressure [Intra- Procedure] Blood Pressure [Post-Procedure ] Blood Pressure [Pre-Procedure] O2 Sat by Pulse 99 98 Oximetry O2 Sat by Pulse Oximetry [ Intra-Procedure ] O2 Sat by Pulse Oximetry [Post -Procedure] O2 Sat by Pulse Oximetry [Pre- Procedure] 10/10/17 10/10/17 10/10/17 07:44 08:29 09:54 Temperature 99.2 F Pulse Rate 97 H Pulse Rate [ Intra-Procedure ] Pulse Rate [ 98 H Left Radial] Pulse Rate [ Post-Procedure] Pulse Rate [Pre 96 H -Procedure] Pulse Rate [ 98 H Right Radial] Respiratory 20 Rate Respiratory Rate [Intra- Procedure] Respiratory Rate [Post- Procedure] Respiratory 26 H Rate [Pre- Procedure] Blood Pressure 133/74 Blood Pressure [Intra- Procedure] Blood Pressure [Post-Procedure ] Blood Pressure 130/73 [Pre-Procedure] O2 Sat by Pulse 97 Oximetry O2 Sat by Pulse Oximetry [ Intra-Procedure ] O2 Sat by Pulse Oximetry [Post -Procedure] O2 Sat by Pulse 99 Oximetry [Pre- Procedure] 10/10/17 10/10/17 10/10/17 09:59 10:05 10:10 Temperature Pulse Rate Pulse Rate [ 99 H 98 H 94 H Intra-Procedure ] Pulse Rate [ Left Radial] Pulse Rate [ Post-Procedure] Pulse Rate [Pre -Procedure] Pulse Rate [ Right Radial] Respiratory Rate Respiratory 21 20 21 Rate [Intra- Procedure] Respiratory Rate [Post- Procedure] Respiratory Rate [Pre- Procedure] Blood Pressure Blood Pressure 123/65 119/64 117/67 [Intra- Procedure] Blood Pressure [Post-Procedure ] Blood Pressure [Pre-Procedure] O2 Sat by Pulse Oximetry O2 Sat by Pulse 99 99 99 Oximetry [ Intra-Procedure ] O2 Sat by Pulse Oximetry [Post -Procedure] O2 Sat by Pulse Oximetry [Pre- Procedure] 10/10/17 10/10/17 10/10/17 10:15 10:20 10:25 Temperature Pulse Rate Pulse Rate [ 94 H 98 H Intra-Procedure ] Pulse Rate [ Left Radial] Pulse Rate [ 93 H Post-Procedure] Pulse Rate [Pre -Procedure] Pulse Rate [ Right Radial] Respiratory Rate Respiratory 21 18 Rate [Intra- Procedure] Respiratory 17 Rate [Post- Procedure] Respiratory Rate [Pre- Procedure] Blood Pressure Blood Pressure 108/62 109/60 [Intra- Procedure] Blood Pressure 108/58 [Post-Procedure ] Blood Pressure [Pre-Procedure] O2 Sat by Pulse Oximetry O2 Sat by Pulse 99 98 Oximetry [ Intra-Procedure ] O2 Sat by Pulse 98 Oximetry [Post -Procedure] O2 Sat by Pulse Oximetry [Pre- Procedure] 10/10/17 10/10/17 10:40 10:55 Temperature Pulse Rate Pulse Rate [ Intra-Procedure ] Pulse Rate [ Left Radial] Pulse Rate [ 94 H 94 H Post-Procedure] Pulse Rate [Pre -Procedure] Pulse Rate [ Right Radial] Respiratory Rate Respiratory Rate [Intra- Procedure] Respiratory 21 21 Rate [Post- Procedure] Respiratory Rate [Pre- Procedure] Blood Pressure Blood Pressure [Intra- Procedure] Blood Pressure 115/63 113/64 [Post-Procedure ] Blood Pressure [Pre-Procedure] O2 Sat by Pulse Oximetry O2 Sat by Pulse Oximetry [ Intra-Procedure ] O2 Sat by Pulse 98 96 Oximetry [Post -Procedure] O2 Sat by Pulse Oximetry [Pre- Procedure] - Labs CBC & Chem 7: 10/10/17 21:20 10/10/17 06:15 Labs: Abnormal lab results 10/10/17 10/10/17 Range/Units 06:14 06:15 PT 18.7 H (12.2-14.9) Sec. INR 1.47 H (0.87-1.13) Sodium 131 L (137-145) mmol/L Carbon Dioxide 16 L (22-30) mmol/L BUN 28 H (9-20) mg/dL Calcium 7.3 L (8.4-10.2) mg/dL Total Bilirubin 13.40 H (0.1-1.2) mg/dL AST 178 H (5-40) units/L Albumin 2.0 L (3.9-5) g/dL
[2017-10-10] MEDS ORDERED: NACL 0.9% 500 ML 500 ML IV SCH (12:58)
--- NOTE | 2017-10-10 12:58 | Progress Note ---
Assessment and Plan Pt status quo. s/p liver biopsy. currently sedated h/h dropped again. rec correct elevated INR & PT f/u h/h today. non surgical candidate at this time. as per PCP & GI would keep npo for now until f/u h/h results obtained Selected Entries 10/10/17 10/10/17 07:44 10:20 Temperature 99.2 F Pulse Rate [ 98 H Intra-Procedure ] Blood Pressure 133/74 Laboratory Tests 10/08/17 10/09/17 10/10/17 08:16 06:43 06:14 Hgb 8.1 L 7.4 L Hct 23.7 L 22.1 L PT 18.7 H INR 1.47 H Sodium Potassium Chloride Carbon Dioxide BUN Creatinine 10/10/17 06:15 Hgb Hct PT INR Sodium 131 L Potassium 4.4 Chloride 99.0 Carbon Dioxide 16 L BUN 28 H Creatinine 1.4 Objective Vital Signs - 12hr 10/10/17 10/10/17 10/10/17 04:00 04:08 07:44 Temperature 98.8 F 99.2 F Pulse Rate 91 H 97 H 97 H Pulse Rate [ Intra-Procedure ] Pulse Rate [ Left Radial] Pulse Rate [ Post-Procedure] Pulse Rate [Pre -Procedure] Pulse Rate [ Right Radial] Respiratory 20 20 Rate Respiratory Rate [Intra- Procedure] Respiratory Rate [Post- Procedure] Respiratory Rate [Pre- Procedure] Blood Pressure 133/74 133/74 Blood Pressure [Intra- Procedure] Blood Pressure [Post-Procedure ] Blood Pressure [Pre-Procedure] O2 Sat by Pulse 98 97 Oximetry O2 Sat by Pulse Oximetry [ Intra-Procedure ] O2 Sat by Pulse Oximetry [Post -Procedure] O2 Sat by Pulse Oximetry [Pre- Procedure] 10/10/17 10/10/17 10/10/17 08:29 09:54 09:59 Temperature Pulse Rate Pulse Rate [ 99 H Intra-Procedure ] Pulse Rate [ 98 H Left Radial] Pulse Rate [ Post-Procedure] Pulse Rate [Pre 96 H -Procedure] Pulse Rate [ 98 H Right Radial] Respiratory Rate Respiratory 21 Rate [Intra- Procedure] Respiratory Rate [Post- Procedure] Respiratory 26 H Rate [Pre- Procedure] Blood Pressure Blood Pressure 123/65 [Intra- Procedure] Blood Pressure [Post-Procedure ] Blood Pressure 130/73 [Pre-Procedure] O2 Sat by Pulse Oximetry O2 Sat by Pulse 99 Oximetry [ Intra-Procedure ] O2 Sat by Pulse Oximetry [Post -Procedure] O2 Sat by Pulse 99 Oximetry [Pre- Procedure] 10/10/17 10/10/17 10/10/17 10:05 10:10 10:15 Temperature Pulse Rate Pulse Rate [ 98 H 94 H 94 H Intra-Procedure ] Pulse Rate [ Left Radial] Pulse Rate [ Post-Procedure] Pulse Rate [Pre -Procedure] Pulse Rate [ Right Radial] Respiratory Rate Respiratory 20 21 21 Rate [Intra- Procedure] Respiratory Rate [Post- Procedure] Respiratory Rate [Pre- Procedure] Blood Pressure Blood Pressure 119/64 117/67 108/62 [Intra- Procedure] Blood Pressure [Post-Procedure ] Blood Pressure [Pre-Procedure] O2 Sat by Pulse Oximetry O2 Sat by Pulse 99 99 99 Oximetry [ Intra-Procedure ] O2 Sat by Pulse Oximetry [Post -Procedure] O2 Sat by Pulse Oximetry [Pre- Procedure] 10/10/17 10/10/17 10/10/17 10:20 10:25 10:40 Temperature Pulse Rate Pulse Rate [ 98 H Intra-Procedure ] Pulse Rate [ Left Radial] Pulse Rate [ 93 H 94 H Post-Procedure] Pulse Rate [Pre -Procedure] Pulse Rate [ Right Radial] Respiratory Rate Respiratory 18 Rate [Intra- Procedure] Respiratory 17 21 Rate [Post- Procedure] Respiratory Rate [Pre- Procedure] Blood Pressure Blood Pressure 109/60 [Intra- Procedure] Blood Pressure 108/58 115/63 [Post-Procedure ] Blood Pressure [Pre-Procedure] O2 Sat by Pulse Oximetry O2 Sat by Pulse 98 Oximetry [ Intra-Procedure ] O2 Sat by Pulse 98 98 Oximetry [Post -Procedure] O2 Sat by Pulse Oximetry [Pre- Procedure] 10/10/17 10:55 Temperature Pulse Rate Pulse Rate [ Intra-Procedure ] Pulse Rate [ Left Radial] Pulse Rate [ 94 H Post-Procedure] Pulse Rate [Pre -Procedure] Pulse Rate [ Right Radial] Respiratory Rate Respiratory Rate [Intra- Procedure] Respiratory 21 Rate [Post- Procedure] Respiratory Rate [Pre- Procedure] Blood Pressure Blood Pressure [Intra- Procedure] Blood Pressure 113/64 [Post-Procedure ] Blood Pressure [Pre-Procedure] O2 Sat by Pulse Oximetry O2 Sat by Pulse Oximetry [ Intra-Procedure ] O2 Sat by Pulse 96 Oximetry [Post -Procedure] O2 Sat by Pulse Oximetry [Pre- Procedure] - Labs 10/09/17 06:43 10/10/17 06:15 Diabetes panel 10/10/17 Range/Units 06:15 Sodium 131 L (137-145) mmol/L Potassium 4.4 (3.6-5.0) mmol/L Chloride 99.0 (98-107) mmol/L Carbon Dioxide 16 L (22-30) mmol/L BUN 28 H (9-20) mg/dL Creatinine 1.4 (0.8-1.5) mg/dL Glucose 99 (75-100) mg/dL Calcium 7.3 L (8.4-10.2) mg/dL AST 178 H (5-40) units/L ALT 23 (7-56) units/L Alkaline Phosphatase 78 (35-129) units/L Total Protein 8.2 (6.3-8.2) g/dL Albumin 2.0 L (3.9-5) g/dL Calcium panel 10/10/17 Range/Units 06:15 Calcium 7.3 L (8.4-10.2) mg/dL Albumin 2.0 L (3.9-5) g/dL Pituitary panel 10/10/17 Range/Units 06:15 Sodium 131 L (137-145) mmol/L Potassium 4.4 (3.6-5.0) mmol/L Chloride 99.0 (98-107) mmol/L Carbon Dioxide 16 L (22-30) mmol/L BUN 28 H (9-20) mg/dL Creatinine 1.4 (0.8-1.5) mg/dL Glucose 99 (75-100) mg/dL Calcium 7.3 L (8.4-10.2) mg/dL Adrenal panel 10/10/17 Range/Units 06:15 Sodium 131 L (137-145) mmol/L Potassium 4.4 (3.6-5.0) mmol/L Chloride 99.0 (98-107) mmol/L Carbon Dioxide 16 L (22-30) mmol/L BUN 28 H (9-20) mg/dL Creatinine 1.4 (0.8-1.5) mg/dL Glucose 99 (75-100) mg/dL Calcium 7.3 L (8.4-10.2) mg/dL Total Bilirubin 13.40 H (0.1-1.2) mg/dL AST 178 H (5-40) units/L ALT 23 (7-56) units/L Alkaline Phosphatase 78 (35-129) units/L Total Protein 8.2 (6.3-8.2) g/dL Albumin 2.0 L (3.9-5) g/dL
--- NOTE | 2017-10-10 13:45 | Progress Note ---
Assessment and Plan Assessment: 1) Sepsis: fever resolved, leukocytosis better. Etiology most likely ? cholangitis. Doubt leptospirosis 2) Elevated AST and bilirubin associated with fever: likely liver masses from ? hepatocarcinoma -Abd US cholelythiasis and sludge, GB carroll mildly thickened Heterogeneous echodensity of the liver. -CRP8.4 -HIV neg -Viral hepatitis panel neg -Cholangiopancreatographic MRI showed hepatic cirrhosis, hepatomegaly, too numerous to count hepatic masses, mild to moderate ascitis, portal HTN with esophageal and splenic varices. 3) ETOH abuse: Patient drinks daily beers and vodka. 4) KAMILAH- resolved Plan: -f/u liver biopsy -Hem/onc consult -f/u leptospira serology -continue zosyn D4/7 -stop doxycycline Thank you for your consultation, will follow up with you. Perlita North MD Infectious Diseases Specialist [facility] M [phone] O [phone] Subjective Date of service: 10/10/17 Principal diagnosis: jaundice fever Interval history: Feels better, no fever, sleepy after liver biopsy procedure Micro: Blood cultures: 10/07 ngtd Urine cultures: 10/07 ngtd Current Antimicrobials: Zosyn 10/07 Doxycycline 10/09 Previous Antimicrobials: Objective - Exam Narrative Exam: General appearance: Alert in NAD, conversant Eyes: anicteric sclerae, +marked conjunctival jaundice; no lid-lag; PERRLA HENT: Atraumatic; oropharynx clear with moist mucous membranes and no mucosal ulcerations/no oral thrush; normal hard and soft palate. Normal external ears. Neck: Trachea midline; supple, no thyromegaly or lymphadenopathy Lungs: CTA, with normal respiratory effort and no intercostal retractions CV: RRR, no murmurs Abdomen: Soft, non-tender; +ascitis Extremities: No peripheral edema or extremity lymphadenopathy Skin: +jaundice Psych: Appropriate affect, alert and oriented to person, place and time. Neuro: alert and oriented x 3. Moving all extermities Lines: No CVL / PICC - Constitutional Vitals: Vital Signs Temp Pulse Resp BP Pulse Ox 99.2 F 94 H 21 113/64 96 10/10/17 07:44 10/10/17 10:55 10/10/17 10:55 10/10/17 10:55 10/10/17 10:55 Temperature -Last 24 Hours Temperature 99.2 F Temperature 98.8 F Temperature 99.5 F Temperature 98.8 F Temperature 98.9 F - Labs CBC & Chem 7: 10/09/17 06:43 10/10/17 06:15 Labs: Abnormal lab results 10/10/17 10/10/17 Range/Units 06:14 06:15 PT 18.7 H (12.2-14.9) Sec. INR 1.47 H (0.87-1.13) Sodium 131 L (137-145) mmol/L Carbon Dioxide 16 L (22-30) mmol/L BUN 28 H (9-20) mg/dL Calcium 7.3 L (8.4-10.2) mg/dL Total Bilirubin 13.40 H (0.1-1.2) mg/dL AST 178 H (5-40) units/L Albumin 2.0 L (3.9-5) g/dL
[2017-10-10 14:48] LABS: Hematocrit 22.8 % (35.5-45.6); Hemoglobin 7.9 gm/dl (11.8-15.2)
--- NOTE | 2017-10-10 14:55 | Gastroenterology Progress Note ---
Assessment and Plan - Patient Problems (1) Liver masses Current Visit: Yes Status: Acute Plan to address problem: - Tumor markers and hepatitis panel is still pending. - Masses biopsied today; results pending. - Pending results may need upper/lower endoscopy to search for primary mass, but nothing noted on the abdominal CT scan. - Add MVI therapy given chronic EtOH disease. Subjective Date of service: 10/10/17 Principal diagnosis: Liver Mass Interval history: The patient underwent liver biopsy and did well. He has had no N/V/severe RUQ pain. He denies melena or hematochezia. Objective - Constitutional Vitals: Temp Pulse Resp BP Pulse Ox 99.2 F 93 H 21 113/64 96 10/10/17 07:44 10/10/17 12:00 10/10/17 10:55 10/10/17 10:55 10/10/17 10:55 General appearance: no acute distress - EENT Eyes: scleral icterus - Respiratory Respiratory effort: normal Respiratory: bilateral: CTA - Cardiovascular Rhythm: regular Heart Sounds: Present: S1 & S2 - Gastrointestinal General gastrointestinal: Present: soft, non-tender, non-distended - Labs CBC & Chem 7: 10/10/17 14:35 10/10/17 06:15 Labs: Laboratory Results - last 24 hr 10/10/17 10/10/17 10/10/17 06:14 06:14 06:15 Hgb Hct PT 18.7 H INR 1.47 H Sodium 131 L Potassium 4.4 Chloride 99.0 Carbon Dioxide 16 L Anion Gap 20 BUN 28 H Creatinine 1.4 Estimated GFR > 60 BUN/Creatinine Ratio 20 Glucose 99 Calcium 7.3 L Total Bilirubin 13.40 H AST 178 H ALT 23 Alkaline Phosphatase 78 Total Protein 8.2 Albumin 2.0 L Albumin/Globulin Ratio 0.3 Hepatitis A IgM Ab Non-reactive Hep Bs Antigen Non-reactive Hep B Core IgM Ab Non-reactive Hepatitis C Antibody Non-reactive 10/10/17 14:35 Hgb 7.9 L Hct 22.8 L PT INR Sodium Potassium Chloride Carbon Dioxide Anion Gap BUN Creatinine Estimated GFR BUN/Creatinine Ratio Glucose Calcium Total Bilirubin AST ALT Alkaline Phosphatase Total Protein Albumin Albumin/Globulin Ratio Hepatitis A IgM Ab Hep Bs Antigen Hep B Core IgM Ab Hepatitis C Antibody
[2017-10-10] MEDS: SODIUM CHLORIDE FLUSH SYRINGE 10 ML IV SCH ×2 (15:05→22:00)
--- NOTE | 2017-10-10 15:14 | Consultation ---
REFERRING PHYSICIAN: Dr. Aleida Franco. REASON FOR CONSULTATION: Liver lesions, rule out malignancy. HISTORY OF PRESENT ILLNESS: The patient is a 57-year-old male with no significant past medical history who had been having abdominal pain in the epigastric and right upper quadrant for some time. He had been self-medicating with Tylenol. The patient's coworkers had also noticed yellowing of his eyes and he was initially seen at [place] and was asked to go to the hospital and he got admitted here for abdominal pain, weakness, weight loss, and jaundice. Since admission, lab work showed hemoglobin of 6.8, white count 19.3, platelets 184,000. INR 1.36. His bilirubin was 13.4. Lactic acid 4.5. He did undergo CT of the abdomen and pelvis where he was found to have heterogeneously decreased density extending throughout the left lobe of the liver and large portion of the right lobe of the liver. Appearance did suggest cirrhosis. He also underwent MRI of the liver and was found to have hepatic cirrhosis with hepatomegaly and too numerous to count liver masses. There was portal hypertension with esophageal varices, splenic varices, and moderate amount of ascites. His HIV was negative. Alpha-fetoprotein is pending. CEA is pending. Hepatitis profile is pending. His ammonia level was 5.5. He is to undergo a liver biopsy today. He has received 2 units of blood. Today's hemoglobin is 7.4, INR 1.47. PAST MEDICAL HISTORY: Unremarkable. SOCIAL HISTORY: Positive for alcohol use. He says he drinks almost every day, but he says he does not drink a whole lot. He never has had liver issues in the past. Does not smoke. REVIEW OF SYSTEMS: Positive for weight loss, abdominal pain, weakness. PHYSICAL EXAMINATION: GENERAL: The patient is awake and oriented. HEENT: There is icterus noted in the conjunctivae. CHEST: Clear. CARDIOVASCULAR: Regular rate and rhythm. ABDOMEN: Distended, some fullness in the right upper quadrant. EXTREMITIES: No clubbing, cyanosis, or edema. LABORATORY DATA: As mentioned in history of present illness. ASSESSMENT: Liver lesions in the face of cirrhosis of the liver, ruled out malignancy. PLAN: Alpha-fetoprotein, CEA is pending. The patient is to get a liver biopsy. We will follow up on the results. JOB# [id number] MIGUEL/ELVER
[2017-10-10 21:42] LABS: Hematocrit 23.7 % (35.5-45.6); Hemoglobin 7.8 gm/dl (11.8-15.2)
[2017-10-10] MEDS: MORPHINE IV PRN (23:48)
[2017-10-11 02:33] LABS: Albumin 2.6 g/dL (3.8-4.8); Gamma Globulin 3.8 g/dL (0.8-1.7)
[2017-10-11] MEDS: ZOSYN/NS 4.5GM/100ML 4.5 GM/100 ML VIAL IV SCH ×3 (06:07→21:33)
[2017-10-11] MEDS: D5NS 1,000 ML IV SCH (06:07)
[2017-10-11 07:04] LABS: Basophils # (Auto) 0.1 K/mm3 (0.0-0.1); Basophils % (Auto) 0.9 % (0.0-1.8); Eosinophils # (Auto) 0.3 K/mm3 (0.0-0.4); Eosinophils % (Auto) 2.3 % (0.0-4.3); Hematocrit 21.6 % (35.5-45.6); Hemoglobin 7.5 gm/dl (11.8-15.2); Lymphocytes % (Auto) 14.7 % (13.4-35.0); Mean Corpuscular HGB Conc 35 % (32-34); Mean Corpuscular Hemoglobin 34 pg (28-32); Mean Corpuscular Volume 98 fl (84-94); Monocytes # (Auto) 1.2 K/mm3 (0.0-0.8); Monocytes % (Auto) 9.2 % (0.0-7.3); Platelet Count 142 K/mm3 (140-440); Red Blood Count 2.19 M/mm3 (3.65-5.03)
[2017-10-11 07:14] LABS: INR 1.53 (0.87-1.13)
[2017-10-11 07:28] LABS: Albumin 1.9 g/dL (3.9-5); Bilirubin,Direct 9.7 mg/dL (0-0.2)
[2017-10-11] MEDS: THERAGRAN-M Tab PO SCH (09:29)
[2017-10-11] MEDS: SODIUM CHLORIDE FLUSH SYRINGE 10 ML IV SCH ×2 (09:30→21:55)
--- NOTE | 2017-10-11 09:30 | Hem/Onc Progress Note ---
Assessment and Plan Hepatitis profile negative. Awaiting biopsy of the liver. Continue to monitor. Subjective Date of service: 10/11/17 Interval history: Patient feels fair. Complains of being tired. Tolerated liver biopsy well. Denies any active bleeding. Objective - Constitutional Vitals: Last Vital Signs Temp 98.1 F 10/11/17 07:44 Pulse 98 H 10/11/17 07:44 Resp 16 10/11/17 07:44 BP 130/78 10/11/17 07:44 Pulse Ox 98 10/11/17 07:44 Pain Intensity (0-10): denies any pain General appearance: no acute distress Performance status: 3-limited selfcare - EENT Eyes: scleral icterus - Neck Neck: supple - Respiratory Respiratory effort: Positive: normal Respiratory: bilateral: diminished - Cardiovascular Rhythm: regular - Gastrointestinal General gastrointestinal: Present: soft (fullness mostly in the right upper quadrant) - Labs Lab Results: Laboratory Results - last 24 hr 10/07/17 10/07/17 10/10/17 17:04 18:00 14:35 WBC RBC Hgb Hct MCV MCH MCHC RDW Plt Count Lymph % (Auto) [place] % (Auto) Eos % (Auto) Baso % (Auto) Lymph # [place] # Eos # Baso # Seg Neutrophils % Seg Neutrophils # PT INR Total Bilirubin Direct Bilirubin Indirect Bilirubin AST ALT Alkaline Phosphatase Serum Total Protein 9.4 H Total Protein Albumin 2.6 L Albumin/Globulin Ratio Nzykv-5-Zosvhotnh 0.4 H Tjmqp-4-Kfhipfiif 0.7 Beta Globulins 1.5 H Gamma Globulins 3.8 H Abnorm Protein Band 1 see below PEP Interpretation see below RBC Folic Acid 530 Blood Type O POSITIVE 10/10/17 10/10/17 10/11/17 14:35 21:20 06:44 WBC 13.3 H RBC 2.19 L Hgb 7.9 L 7.8 L 7.5 L Hct 22.8 L 23.7 L 21.6 L MCV 98 H MCH 34 H MCHC 35 H RDW 17.0 H Plt Count 142 Lymph % (Auto) 14.7 [place] % (Auto) 9.2 H Eos % (Auto) 2.3 Baso % (Auto) 0.9 Lymph # 2.0 [place] # 1.2 H Eos # 0.3 Baso # 0.1 Seg Neutrophils % 72.9 H Seg Neutrophils # 9.7 H PT INR Total Bilirubin Direct Bilirubin Indirect Bilirubin AST ALT Alkaline Phosphatase Serum Total Protein Total Protein Albumin Albumin/Globulin Ratio Ryojt-2-Kiufcxqqd Uskvx-4-Oyqjjmaum Beta Globulins Gamma Globulins Abnorm Protein Band 1 PEP Interpretation RBC Folic Acid Blood Type 10/11/17 10/11/17 06:44 06:44 WBC RBC Hgb Hct MCV MCH MCHC RDW Plt Count Lymph % (Auto) [place] % (Auto) Eos % (Auto) Baso % (Auto) Lymph # [place] # Eos # Baso # Seg Neutrophils % Seg Neutrophils # PT 19.3 H INR 1.53 H Total Bilirubin 13.00 H Direct Bilirubin 9.7 H Indirect Bilirubin 3.3 AST 166 H ALT 23 Alkaline Phosphatase 70 Serum Total Protein Total Protein 7.5 Albumin 1.9 L Albumin/Globulin Ratio 0.3 Nrwqe-0-Zhkkvllad Krodd-6-Npwgkwklg Beta Globulins Gamma Globulins Abnorm Protein Band 1 PEP Interpretation RBC Folic Acid Blood Type
--- NOTE | 2017-10-11 13:20 | Progress Note ---
Assessment and Plan Pt feeling well, no compl. keri diet. neg abd pain. neg vomiting Abd - non tender liver biopsy results pending surgically stable will follow prn Selected Entries 10/11/17 11:09 Temperature 98.1 F Respiratory 16 Rate Blood Pressure 119/67 Laboratory Tests 10/11/17 10/11/17 10/11/17 06:44 06:44 06:44 Hgb 7.5 L Hct 21.6 L PT 19.3 H INR 1.53 H Total Bilirubin 13.00 H Direct Bilirubin 9.7 H Indirect Bilirubin 3.3 Objective Vital Signs - 12hr 10/11/17 10/11/17 10/11/17 04:00 04:38 07:44 Temperature 99.3 F 98.1 F Pulse Rate 97 H 97 H 98 H Respiratory 18 16 Rate Blood Pressure 122/78 130/78 O2 Sat by Pulse 98 98 Oximetry 10/11/17 11:09 Temperature 98.1 F Pulse Rate 92 H Respiratory 16 Rate Blood Pressure 119/67 O2 Sat by Pulse 97 Oximetry - Labs 10/11/17 06:44 10/10/17 06:15 Diabetes panel 10/07/17 10/11/17 Range/Units 18:00 06:44 AST 166 H (5-40) units/L ALT 23 (7-56) units/L Alkaline Phosphatase 70 (35-129) units/L Total Protein 7.5 (6.3-8.2) g/dL Albumin 2.6 L 1.9 L (3.8-4.8) g/dL Calcium panel 10/07/17 10/11/17 Range/Units 18:00 06:44 Albumin 2.6 L 1.9 L (3.8-4.8) g/dL Adrenal panel 10/07/17 10/11/17 Range/Units 18:00 06:44 Total Bilirubin 13.00 H (0.1-1.2) mg/dL AST 166 H (5-40) units/L ALT 23 (7-56) units/L Alkaline Phosphatase 70 (35-129) units/L Total Protein 7.5 (6.3-8.2) g/dL Albumin 2.6 L 1.9 L (3.8-4.8) g/dL
--- NOTE | 2017-10-11 14:05 | Event Note ---
Date: 10/11/17 Pathology of liver still pending, but labs reviewed and stable. Still waiting on AFP as well. Will see patient tomorrow after liver biopsy returns.
--- NOTE | 2017-10-11 14:26 | Progress Note ---
Assessment and Plan Assessment: 1) Sepsis: fever resolved, leukocytosis better 19-->13K. Etiology most likely ? cholangitis. Doubt leptospirosis 2) Elevated AST and bilirubin associated with fever: likely liver masses from ? hepatocarcinoma ? malignancy -Abd US cholelythiasis and sludge, GB carroll mildly thickened Heterogeneous echodensity of the liver. -CRP8.4 -HIV neg -Viral hepatitis panel neg -Cholangiopancreatographic MRI showed hepatic cirrhosis, hepatomegaly, too numerous to count hepatic masses, mild to moderate ascitis, portal HTN with esophageal and splenic varices. -S/P liver biopsy on 10/11 3) ETOH abuse: Patient drinks daily beers and vodka. 4) KAMILAH- resolved Plan: -f/u liver biopsy -f/u AFP -Hem/onc consult -f/u leptospira serology -continue zosyn D5/7 Discussed with patient Thank you for your consultation, will follow up with you. Perlita North MD Infectious Diseases Specialist [facility] M [phone] O [phone] Subjective Date of service: 10/11/17 Principal diagnosis: jaundice fever Interval history: Feels better, alert, talking no fever, no N/V Micro: Blood cultures: 10/07 ngtd Urine cultures: 10/07 ngtd Current Antimicrobials: Zosyn 10/07 Previous Antimicrobials: Doxycycline 10/09 Objective - Exam Narrative Exam: General appearance: Alert in NAD, conversant Eyes: anicteric sclerae, +marked conjunctival jaundice; no lid-lag; PERRLA HENT: Atraumatic; oropharynx clear with moist mucous membranes and no mucosal ulcerations/no oral thrush; normal hard and soft palate. Normal external ears. Neck: Trachea midline; supple, no thyromegaly or lymphadenopathy Lungs: CTA, with normal respiratory effort and no intercostal retractions CV: RRR, no murmurs Abdomen: Soft, non-tender Extremities: No peripheral edema or extremity lymphadenopathy Skin: +jaundice Psych: Appropriate affect, alert and oriented to person, place and time. Neuro: alert and oriented x 3. Moving all extermities Lines: No CVL / PICC - Constitutional Vitals: Vital Signs Temp Pulse Resp BP Pulse Ox 98.1 F 92 H 16 119/67 97 10/11/17 11:09 10/11/17 11:09 10/11/17 11:09 10/11/17 11:09 10/11/17 11:09 Temperature -Last 24 Hours Temperature 98.1 F Temperature 98.1 F Temperature 99.3 F Temperature 99.6 F Temperature 99.3 F Temperature 98.8 F - Labs CBC & Chem 7: 10/11/17 06:44 10/10/17 06:15 Labs: Abnormal lab results 10/07/17 10/10/17 10/10/17 Range/Units 18:00 14:35 21:20 WBC (4.5-11.0) K/mm3 RBC (3.65-5.03) M/mm3 Hgb 7.9 L 7.8 L (11.8-15.2) gm/dl Hct 22.8 L 23.7 L (35.5-45.6) % MCV (84-94) fl MCH (28-32) pg MCHC (32-34) % RDW (13.2-15.2) % [place] % (Auto) (0.0-7.3) % [place] # (0.0-0.8) K/mm3 Seg Neutrophils % (40.0-70.0) % Seg Neutrophils # (1.8-7.7) K/mm3 PT (12.2-14.9) Sec. INR (0.87-1.13) Total Bilirubin (0.1-1.2) mg/dL Direct Bilirubin (0-0.2) mg/dL AST (5-40) units/L Serum Total Protein 9.4 H (6.1-8.1) g/dL Albumin 2.6 L (3.8-4.8) g/dL Zmyfl-3-Tthuoztil 0.4 H (0.2-0.3) g/dL Beta Globulins 1.5 H (0.2-0.5) g/dL Gamma Globulins 3.8 H (0.8-1.7) g/dL 10/11/17 10/11/17 10/11/17 Range/Units 06:44 06:44 06:44 WBC 13.3 H (4.5-11.0) K/mm3 RBC 2.19 L (3.65-5.03) M/mm3 Hgb 7.5 L (11.8-15.2) gm/dl Hct 21.6 L (35.5-45.6) % MCV 98 H (84-94) fl MCH 34 H (28-32) pg MCHC 35 H (32-34) % RDW 17.0 H (13.2-15.2) % [place] % (Auto) 9.2 H (0.0-7.3) % [place] # 1.2 H (0.0-0.8) K/mm3 Seg Neutrophils % 72.9 H (40.0-70.0) % Seg Neutrophils # 9.7 H (1.8-7.7) K/mm3 PT 19.3 H (12.2-14.9) Sec. INR 1.53 H (0.87-1.13) Total Bilirubin 13.00 H (0.1-1.2) mg/dL Direct Bilirubin 9.7 H (0-0.2) mg/dL AST 166 H (5-40) units/L Serum Total Protein (6.1-8.1) g/dL Albumin 1.9 L (3.8-4.8) g/dL Scmme-9-Lpfyzthxk (0.2-0.3) g/dL Beta Globulins (0.2-0.5) g/dL Gamma Globulins (0.8-1.7) g/dL
--- NOTE | 2017-10-11 17:41 | Progress Note ---
Assessment and Plan Assessment and plan: 57-year-old -Algerian male with history of alcohol abuse/dependence came in for abdominal pain in the epigastric and right upper quadrant. Metastatic hepatic disease vs hepatocellular carcinoma - CT abdomen on admission was suggestive of possible cholecystitis. - MRCP showed multiple hepatic lesion - GI consult appreciated - Hem/Onc consult appreciated - Liver biopsy preliminary result is negative for malignancy SIRS Probably from metastatic disease all cx work up negative ID consult appreciated cont zosyn Blood loss Anemia Likely from GI loss and history of alcoholism. MCV and MCH are high, could be from folic acid/B12 deficiency. positive stool for occult blood in 2nd set, s/p 2 unit PRBC transfusion, hemoglobin this morning was 8 Acute kidney injury Likely vasomotor nephropathy but cannot r/o hepatorenal syndrom, BUN/creatinine now stable Coagulopathy with elevated LFT - likely from hepatic disease -will give one unit FFP as he had liver biopsy today EtOH dependence CIWA protocol was added to prevent DTs placed on MVI DVT prophylaxis, scd History Interval history: Patient was seen and 2 this morning, patient is complaining feeling tired and weak. Hospitalist Physical - Physical exam Narrative exam: Not in cardiopulmonary distress. The patient appeared well nourished and normally developed. Vital signs as documented. Head exam is unremarkable. Deep scleral icterus . Neck is without jugular venous distension, thyromegaly, or carotid bruits. Lungs are clear to auscultation. Cardiac exam reveals regular rate and Rhythm. First and second heart sounds normal. No murmurs, rubs or gallops. Abdominal exam reveals normal bowel sounds, no masses, no organomegaly and no aortic enlargement. Extremities are nonedematous and both femoral and pedal pulses are normal. [employer] STRAIGHTENER: Alert and oriented 3. No focal weakness. - Constitutional Vitals: Temp Pulse Resp BP Pulse Ox 98.1 F 97 H 16 122/67 97 10/11/17 15:28 10/11/17 15:28 10/11/17 15:28 10/11/17 15:28 10/11/17 15:28 General appearance: Present: no acute distress, well-nourished Results - Labs CBC & Chem 7: 10/11/17 15:51 10/10/17 06:15 Labs: Laboratory Last Values WBC 13.3 K/mm3 (4.5-11.0) H 10/11/17 06:44 RBC 2.19 M/mm3 (3.65-5.03) L 10/11/17 06:44 Hgb 8.0 gm/dl (11.8-15.2) L 10/11/17 15:51 Hct 23.0 % (35.5-45.6) L 10/11/17 15:51 MCV 98 fl (84-94) H 10/11/17 06:44 MCH 34 pg (28-32) H 10/11/17 06:44 MCHC 35 % (32-34) H 10/11/17 06:44 RDW 17.0 % (13.2-15.2) H 10/11/17 06:44 Plt Count 142 K/mm3 (140-440) 10/11/17 06:44 Lymph % (Auto) 14.7 % (13.4-35.0) 10/11/17 06:44 [place] % (Auto) 9.2 % (0.0-7.3) H 10/11/17 06:44 Eos % (Auto) 2.3 % (0.0-4.3) 10/11/17 06:44 Baso % (Auto) 0.9 % (0.0-1.8) 10/11/17 06:44 Lymph # 2.0 K/mm3 (1.2-5.4) 10/11/17 06:44 [place] # 1.2 K/mm3 (0.0-0.8) H 10/11/17 06:44 Eos # 0.3 K/mm3 (0.0-0.4) 10/11/17 06:44 Baso # 0.1 K/mm3 (0.0-0.1) 10/11/17 06:44 Seg Neutrophils % 72.9 % (40.0-70.0) H 10/11/17 06:44 Seg Neutrophils # 9.7 K/mm3 (1.8-7.7) H 10/11/17 06:44 PT 19.3 Sec. (12.2-14.9) H 10/11/17 06:44 INR 1.53 (0.87-1.13) H 10/11/17 06:44 APTT 54.1 Sec. (24.2-36.6) H 10/07/17 11:44 VBG pH 7.363 (7.320-7.420) 10/07/17 11:44 Sodium 131 mmol/L (137-145) L 10/10/17 06:15 Potassium 4.4 mmol/L (3.6-5.0) 10/10/17 06:15 Chloride 99.0 mmol/L (98-107) 10/10/17 06:15 Carbon Dioxide 16 mmol/L (22-30) L 10/10/17 06:15 Anion Gap 20 mmol/L 10/10/17 06:15 BUN 28 mg/dL (9-20) H 10/10/17 06:15 Creatinine 1.4 mg/dL (0.8-1.5) 10/10/17 06:15 Estimated GFR > 60 ml/min 10/10/17 06:15 BUN/Creatinine Ratio 20 % 10/10/17 06:15 Glucose 99 mg/dL (75-100) 10/10/17 06:15 Hemoglobin A1c < 4.2 % (4-6) 10/07/17 17:04 Lactic Acid 1.70 mmol/L (0.7-2.0) 10/08/17 08:16 Calcium 7.3 mg/dL (8.4-10.2) L 10/10/17 06:15 Phosphorus 1.70 mg/dL (2.5-4.5) L 10/07/17 17:04 Magnesium 1.20 mg/dL (1.7-2.3) L 10/07/17 17:04 Iron 47 ug/dL (49-181) L 10/07/17 17:04 TIBC 70 mcg/dL (250-450) L 10/07/17 17:04 % Saturation 67.14 % 10/07/17 17:04 Transferrin 70 mg/dl (180-329) L 10/07/17 17:04 Total Bilirubin 13.00 mg/dL (0.1-1.2) H 10/11/17 06:44 Direct Bilirubin 9.7 mg/dL (0-0.2) H 10/11/17 06:44 Indirect Bilirubin 3.3 mg/dL 10/11/17 06:44 AST 166 units/L (5-40) H 10/11/17 06:44 ALT 23 units/L (7-56) 10/11/17 06:44 Alkaline Phosphatase 70 units/L (35-129) 10/11/17 06:44 Ammonia 59.0 umol/L (25-60) 10/07/17 17:04 Total Creatine Kinase 31 units/L (55-170) L 10/07/17 11:44 CK-MB (CK-2) < 1.0 ng/mL (0.0-4.0) 10/07/17 11:44 CK-MB (CK-2) Rel Index 3.2 (0-4) 10/07/17 11:44 Troponin T 0.022 ng/mL (0.00-0.029) 10/07/17 11:44 C-Reactive Protein 8.40 mg/dL (0.00-1.30) H 10/08/17 20:06 NT-Pro-B Natriuret Pep 766.8 pg/mL (0-900) 10/07/17 11:44 Serum Total Protein 9.4 g/dL (6.1-8.1) H 10/07/17 18:00 Total Protein 7.5 g/dL (6.3-8.2) 10/11/17 06:44 Albumin 1.9 g/dL (3.9-5) L 10/11/17 06:44 Albumin/Globulin Ratio 0.3 % 10/11/17 06:44 Ioopt-5-Pcvvhyyra 0.4 g/dL (0.2-0.3) H 10/07/17 18:00 [place]-6-Npozfvfua 0.7 g/dL (0.5-0.9) 10/07/17 18:00 Beta Globulins 1.5 g/dL (0.2-0.5) H 10/07/17 18:00 Gamma Globulins 3.8 g/dL (0.8-1.7) H 10/07/17 18:00 Abnorm Protein Band 1 see below 10/07/17 18:00 PEP Interpretation see below 10/07/17 18:00 Amylase 42 units/L (27-131) 10/07/17 17:04 Lipase 61 units/L (13-60) H 10/07/17 11:44 Vitamin B12 1123 pg/mL (211-911) H 10/07/17 17:04 RBC Folic Acid 530 ng/mL (>280) 10/07/17 17:04 Urine Color Rose[place] (Yellow) 10/07/17 19:50 Urine Turbidity Clear (Clear) 10/07/17 19:50 Urine pH 5.0 (5.0-7.0) 10/07/17 19:50 Ur Specific [place] 1.018 (1.003-1.030) 10/07/17 19:50 Urine Protein 30 mg/dl mg/dL (Negative) 10/07/17 19:50 Urine Glucose (UA) Neg mg/dL (Negative) 10/07/17 19:50 Urine Ketones Neg mg/dL (Negative) 10/07/17 19:50 Urine Blood Neg (Negative) 10/07/17 19:50 Urine Nitrite Neg (Negative) 10/07/17 19:50 Urine Bilirubin Mod (Negative) 10/07/17 19:50 Urine Ictotest Positive (Negative) 10/07/17 19:50 Urine Urobilinogen 4.0 mg/dL (<2.0) 10/07/17 19:50 Ur Leukocyte Esterase Neg (Negative) 10/07/17 19:50 Urine WBC (Auto) < 1.0 /HPF (0.0-6.0) 10/07/17 19:50 Urine RBC (Auto) < 1.0 /HPF (0.0-6.0) 10/07/17 19:50 U Epithel Cells (Auto) < 1.0 /HPF (0-13.0) 10/07/17 19:50 Hepatitis A IgM Ab Non-reactive (NonReactive) 10/10/17 06:14 Hep Bs Antigen Non-reactive (Negative) 10/10/17 06:14 Hep B Core IgM Ab Non-reactive (NonReactive) 10/10/17 06:14 Hepatitis C Antibody Non-reactive (NonReactive) 10/10/17 06:14 HIV 1&2 Antibody Rapid Non react (Non React) 10/08/17 20:06 HIV P24 Antigen Non react (Non React) 10/08/17 20:06 Blood Type O POSITIVE 10/10/17 14:35 Antibody Screen Negative 10/07/17 11:44 Crossmatch See Detail 10/07/17 11:44
[2017-10-11] MEDS: VIBRAMYCIN PO SCH (21:49)
[2017-10-11 22:34] LABS: Hematocrit 22.3 % (35.5-45.6); Hemoglobin 7.4 gm/dl (11.8-15.2)
[2017-10-11] MEDS: MORPHINE IV PRN (23:44)
[2017-10-12] MEDS: ZOSYN/NS 4.5GM/100ML 4.5 GM/100 ML VIAL IV SCH ×2 (06:20→14:57)
[2017-10-12] MEDS: D5NS 1,000 ML IV SCH (06:21)
[2017-10-12 07:18] LABS: BUN/Creatinine Ratio 22; Blood Urea Nitrogen 31 mg/dL (9-20); Hemolysis Index 1
[2017-10-12] MEDS: THERAGRAN-M Tab PO SCH (09:33)
--- NOTE | 2017-10-12 10:19 | Hem/Onc Progress Note ---
Assessment and Plan Hepatitis profile negative. Liver biopsy negative for malignancy. I will follow him as outpatient to keep close check on his CBC. Subjective Date of service: 10/12/17 Interval history: Patient feels fair. Complains of being tired. Tolerated liver biopsy well. Denies any active bleeding. Objective - Constitutional Vitals: Last Vital Signs Temp 98.1 F 10/12/17 07:46 Pulse 95 H 10/12/17 07:46 Resp 18 10/12/17 07:46 BP 124/72 10/12/17 07:46 Pulse Ox 98 10/12/17 07:46 Pain Intensity (0-10): denies any pain General appearance: no acute distress - Neck Neck: supple - Respiratory Respiratory effort: Positive: normal Respiratory: bilateral: diminished - Cardiovascular Rhythm: regular - Gastrointestinal General gastrointestinal: Present: soft (distended) - Labs Lab Results: Laboratory Results - last 24 hr 10/11/17 10/11/17 10/12/17 15:51 21:53 06:37 Hgb 8.0 L 7.4 L Hct 23.0 L 22.3 L Sodium 128 L Potassium 3.7 Chloride 96.1 L Carbon Dioxide 14 L Anion Gap 22 BUN 31 H Creatinine 1.4 Estimated GFR > 60 BUN/Creatinine Ratio 22 Glucose 101 H Calcium 7.0 L
[2017-10-12] MEDS: SODIUM CHLORIDE FLUSH SYRINGE 10 ML IV SCH (16:03)
[2017-10-12] MEDS ORDERED: MORPHINE IV PRN (17:35)
--- NOTE | 2017-10-12 17:37 | Gastroenterology Progress Note ---
Assessment and Plan - Patient Problems (1) Cirrhosis of liver without ascites Current Visit: Yes Status: Acute Plan to address problem: - Continue MVI daily therapy, and add nadolol given tachycardia and relative HTN (SBP > 120). - No need for diuretics as no ascites. - Long d/w patient and family about extended recovery course, and absolute need for abstinence. - Will need repeat imaging and possible repeat biopsy within 6-8 weeks to assure no underlying hepatoma despite this negative biopsy. - OK to d/c home per our service. Subjective Date of service: 10/12/17 Principal diagnosis: Cirrhosis Interval history: The patient is tolerating a regular diet without N/V. Complains of fatigue. No blood in stools. Objective - Constitutional Vitals: Temp Pulse Resp BP Pulse Ox 98.7 F 93 H 20 121/77 98 10/12/17 11:40 10/12/17 11:40 10/12/17 11:40 10/12/17 11:40 10/12/17 11:40 General appearance: no acute distress - EENT Eyes: scleral icterus - Respiratory Respiratory effort: normal Respiratory: bilateral: CTA - Cardiovascular Rhythm: regular Heart Sounds: Present: S1 & S2 - Gastrointestinal General gastrointestinal: Present: soft, non-tender, distended (Mild ascites) - Labs CBC & Chem 7: 10/11/17 21:53 10/12/17 06:37 Labs: Laboratory Results - last 24 hr 10/11/17 10/12/17 21:53 06:37 Hgb 7.4 L Hct 22.3 L Sodium 128 L Potassium 3.7 Chloride 96.1 L Carbon Dioxide 14 L Anion Gap 22 BUN 31 H Creatinine 1.4 Estimated GFR > 60 BUN/Creatinine Ratio 22 Glucose 101 H Calcium 7.0 L
--- NOTE | 2017-10-12 17:38 | Progress Note ---
Assessment and Plan Assessment and plan: 57-year-old -[place]an male with history of alcohol abuse/dependence came in for abdominal pain in the epigastric and right upper quadrant. Alcoholic hepatitis - CT abdomen on admission was suggestive of liver mass - MRCP showed multiple hepatic lesion - GI consult appreciated, patient may need steroid - Hem/Onc consult appreciated - Liver biopsy negative for malignancy SIRS Probably from metastatic disease all cx work up negative ID consult appreciated cont zosyn Blood loss Anemia Likely from GI loss and history of alcoholism. MCV and MCH are high, could be from folic acid/B12 deficiency. positive stool for occult blood in 2nd set, s/p 2 unit PRBC transfusion, hemoglobin this morning was 8 Decision for EGD/colonoscopy left for GI Acute kidney injury Likely vasomotor nephropathy but cannot r/o hepatorenal syndrom, BUN/creatinine now stable Coagulopathy with elevated LFT - likely from hepatic disease EtOH dependence CIWA protocol was added to prevent DTs placed on MVI DVT prophylaxis, scd History Interval history: Patient was seen and 2 this morning, patient is feeling well. Hospitalist Physical - Physical exam Narrative exam: Not in cardiopulmonary distress. The patient appeared well nourished and normally developed. Vital signs as documented. Head exam is unremarkable. Deep scleral icterus . Neck is without jugular venous distension, thyromegaly, or carotid bruits. Lungs are clear to auscultation. Cardiac exam reveals regular rate and Rhythm. First and second heart sounds normal. No murmurs, rubs or gallops. Abdominal exam reveals normal bowel sounds, no masses, no organomegaly and no aortic enlargement. Extremities are nonedematous and both femoral and pedal pulses are normal. LAB NURSE: Alert and oriented 3. No focal weakness. - Constitutional Vitals: Temp Pulse Resp BP Pulse Ox 98.7 F 93 H 20 121/77 98 10/12/17 11:40 10/12/17 11:40 10/12/17 11:40 10/12/17 11:40 10/12/17 11:40 General appearance: Present: no acute distress, well-nourished Results - Labs CBC & Chem 7: 10/11/17 21:53 10/12/17 06:37 Labs: Laboratory Last Values WBC 13.3 K/mm3 (4.5-11.0) H 10/11/17 06:44 RBC 2.19 M/mm3 (3.65-5.03) L 10/11/17 06:44 Hgb 7.4 gm/dl (11.8-15.2) L 10/11/17 21:53 Hct 22.3 % (35.5-45.6) L 10/11/17 21:53 MCV 98 fl (84-94) H 10/11/17 06:44 MCH 34 pg (28-32) H 10/11/17 06:44 MCHC 35 % (32-34) H 10/11/17 06:44 RDW 17.0 % (13.2-15.2) H 10/11/17 06:44 Plt Count 142 K/mm3 (140-440) 10/11/17 06:44 Lymph % (Auto) 14.7 % (13.4-35.0) 10/11/17 06:44 [place] % (Auto) 9.2 % (0.0-7.3) H 10/11/17 06:44 Eos % (Auto) 2.3 % (0.0-4.3) 10/11/17 06:44 Baso % (Auto) 0.9 % (0.0-1.8) 10/11/17 06:44 Lymph # 2.0 K/mm3 (1.2-5.4) 10/11/17 06:44 [place] # 1.2 K/mm3 (0.0-0.8) H 10/11/17 06:44 Eos # 0.3 K/mm3 (0.0-0.4) 10/11/17 06:44 Baso # 0.1 K/mm3 (0.0-0.1) 10/11/17 06:44 Seg Neutrophils % 72.9 % (40.0-70.0) H 10/11/17 06:44 Seg Neutrophils # 9.7 K/mm3 (1.8-7.7) H 10/11/17 06:44 PT 19.3 Sec. (12.2-14.9) H 10/11/17 06:44 INR 1.53 (0.87-1.13) H 10/11/17 06:44 APTT 54.1 Sec. (24.2-36.6) H 10/07/17 11:44 VBG pH 7.363 (7.320-7.420) 10/07/17 11:44 Sodium 128 mmol/L (137-145) L 10/12/17 06:37 Potassium 3.7 mmol/L (3.6-5.0) 10/12/17 06:37 Chloride 96.1 mmol/L (98-107) L 10/12/17 06:37 Carbon Dioxide 14 mmol/L (22-30) L 10/12/17 06:37 Anion Gap 22 mmol/L 10/12/17 06:37 BUN 31 mg/dL (9-20) H 10/12/17 06:37 Creatinine 1.4 mg/dL (0.8-1.5) 10/12/17 06:37 Estimated GFR > 60 ml/min 10/12/17 06:37 BUN/Creatinine Ratio 22 % 10/12/17 06:37 Glucose 101 mg/dL (75-100) H 10/12/17 06:37 Hemoglobin A1c < 4.2 % (4-6) 10/07/17 17:04 Lactic Acid 1.70 mmol/L (0.7-2.0) 10/08/17 08:16 Calcium 7.0 mg/dL (8.4-10.2) L 10/12/17 06:37 Phosphorus 1.70 mg/dL (2.5-4.5) L 10/07/17 17:04 Magnesium 1.20 mg/dL (1.7-2.3) L 10/07/17 17:04 Iron 47 ug/dL (49-181) L 10/07/17 17:04 TIBC 70 mcg/dL (250-450) L 10/07/17 17:04 % Saturation 67.14 % 10/07/17 17:04 Transferrin 70 mg/dl (180-329) L 10/07/17 17:04 Total Bilirubin 13.00 mg/dL (0.1-1.2) H 10/11/17 06:44 Direct Bilirubin 9.7 mg/dL (0-0.2) H 10/11/17 06:44 Indirect Bilirubin 3.3 mg/dL 10/11/17 06:44 AST 166 units/L (5-40) H 10/11/17 06:44 ALT 23 units/L (7-56) 10/11/17 06:44 Alkaline Phosphatase 70 units/L (35-129) 10/11/17 06:44 Ammonia 59.0 umol/L (25-60) 10/07/17 17:04 Total Creatine Kinase 31 units/L (55-170) L 10/07/17 11:44 CK-MB (CK-2) < 1.0 ng/mL (0.0-4.0) 10/07/17 11:44 CK-MB (CK-2) Rel Index 3.2 (0-4) 10/07/17 11:44 Troponin T 0.022 ng/mL (0.00-0.029) 10/07/17 11:44 C-Reactive Protein 8.40 mg/dL (0.00-1.30) H 10/08/17 20:06 NT-Pro-B Natriuret Pep 766.8 pg/mL (0-900) 10/07/17 11:44 Serum Total Protein 9.4 g/dL (6.1-8.1) H 10/07/17 18:00 Total Protein 7.5 g/dL (6.3-8.2) 10/11/17 06:44 Albumin 1.9 g/dL (3.9-5) L 10/11/17 06:44 Albumin/Globulin Ratio 0.3 % 10/11/17 06:44 Sbiea-7-Uoyxxjuht 0.4 g/dL (0.2-0.3) H 10/07/17 18:00 Nlbyh-3-Mloliqikh 0.7 g/dL (0.5-0.9) 10/07/17 18:00 Beta Globulins 1.5 g/dL (0.2-0.5) H 10/07/17 18:00 Gamma Globulins 3.8 g/dL (0.8-1.7) H 10/07/17 18:00 Abnorm Protein Band 1 see below 10/07/17 18:00 PEP Interpretation see below 10/07/17 18:00 Amylase 42 units/L (27-131) 10/07/17 17:04 Lipase 61 units/L (13-60) H 10/07/17 11:44 Vitamin B12 1123 pg/mL (211-911) H 10/07/17 17:04 RBC Folic Acid 530 ng/mL (>280) 10/07/17 17:04 Urine Color [place] (Yellow) 10/07/17 19:50 Urine Turbidity Clear (Clear) 10/07/17 19:50 Urine pH 5.0 (5.0-7.0) 10/07/17 19:50 Ur Specific [place] 1.018 (1.003-1.030) 10/07/17 19:50 Urine Protein 30 mg/dl mg/dL (Negative) 10/07/17 19:50 Urine Glucose (UA) Neg mg/dL (Negative) 10/07/17 19:50 Urine Ketones Neg mg/dL (Negative) 10/07/17 19:50 Urine Blood Neg (Negative) 10/07/17 19:50 Urine Nitrite Neg (Negative) 10/07/17 19:50 Urine Bilirubin Mod (Negative) 10/07/17 19:50 Urine Ictotest Positive (Negative) 10/07/17 19:50 Urine Urobilinogen 4.0 mg/dL (<2.0) 10/07/17 19:50 Ur Leukocyte Esterase Neg (Negative) 10/07/17 19:50 Urine WBC (Auto) < 1.0 /HPF (0.0-6.0) 10/07/17 19:50 Urine RBC (Auto) < 1.0 /HPF (0.0-6.0) 10/07/17 19:50 U Epithel Cells (Auto) < 1.0 /HPF (0-13.0) 10/07/17 19:50 Hepatitis A IgM Ab Non-reactive (NonReactive) 10/10/17 06:14 Hep Bs Antigen Non-reactive (Negative) 10/10/17 06:14 Hep B Core IgM Ab Non-reactive (NonReactive) 10/10/17 06:14 Hepatitis C Antibody Non-reactive (NonReactive) 10/10/17 06:14 HIV 1&2 Antibody Rapid Non react (Non React) 10/08/17 20:06 HIV P24 Antigen Non react (Non React) 10/08/17 20:06 Blood Type O POSITIVE 10/10/17 14:35 Antibody Screen Negative 10/07/17 11:44 Crossmatch See Detail 10/07/17 11:44
[2017-10-13 06:43] LABS: Albumin 1.7 g/dL (3.9-5); Calcium 7.3 mg/dL (8.4-10.2)
[2017-10-13 08:52] VITALS: BP 116/71
[2017-10-13] MEDS: THERAGRAN-M Tab PO SCH (09:34)
[2017-10-13] MEDS ORDERED: CORGARD PO SCH (10:00)
--- NOTE | 2017-10-13 11:58 | Discharge Summary ---
Providers - Providers Date of Admission: 10/07/17 18:14 Attending physician: FRANCINE MCKEON MD 10/07/17 16:22 Consult to Physician [CONS] Routine Comment: Consulting Provider: ROZINA PARKINSON Physician Instructions: Reason For Exam: sepsis 10/07/17 16:27 Consult to Physician [CONS] Routine Comment: Consulting Provider: AISHA CANALES Physician Instructions: Reason For Exam: Cholecystitis 10/07/17 16:29 Consult to Physician [CONS] Routine Comment: Consulting Provider: CHANNING COOPER Physician Instructions: Reason For Exam: hepatocellular carcinoma 10/09/17 15:38 Consult to Physician [CONS] Routine Comment: Consulting Provider: LOUISE BYRNE Physician Instructions: Reason For Exam: hepatic malignanct 10/12/17 11:12 Consult to Physician [CONS] Routine Comment: Consulting Provider: AISHA CANALES Physician Instructions: Reason For Exam: left breast swelling and tenderness Primary care physician: LIBBY WILKERSON Hospitalization Reason for admission: cirrhosis, alcoholic hepatitis Condition: Stable Pertinent studies: MR abdomen MRCP IMPRESSION: 1. Hepatic cirrhosis and hepatomegaly with too numerous to count hepatic masses. 2. Hepatocellular carcinoma as well as metastatic disease are considerations. 3. Normal biliary tract. 4. Portal hypertension with esophageal and splenic varices. 5. Mild to moderate ascites. Abdominal ultrasound There is evidence of cholelithiasis. There also appears to be sludge present. Gallbladder carroll mildly thickened although not tender to palpation. The appearance may be related to chronic cholecystitis. If further evaluation is clinically indicated nuclear medicine HIDA scan could be performed. Heterogeneous echogenicity of the liver diffusely without discrete masses may represent cirrhosis. No ascites is visualized. Right kidney is unremarkable. The pancreas is not visualized. CT-guided tissue biopsy showed no malignant cells Procedures: CT-guided liver biopsy Hospital course: 57-year-old -[place] male with history of alcohol abuse/dependence came in for abdominal pain in the epigastric and right upper quadrant. Alcoholic hepatitis/ cirrhosis - MRCP showed multiple hepatic masses - GI consult appreciated - Hem/Onc consult appreciated, given information to have follow-up as an outpatient - Liver biopsy preliminary result is negative for malignancy -Patient is advised to quit drinking alcohol and have follow-up with GI for another possible liver biopsy SIRS Treated with IV Zosyn and resolved Blood loss Anemia Patient was transfused with 2 units of blood and H&H was stable at the time of discharge Coagulopathy with elevated LFT - Due to alcoholic cirrhosis Patient was hemodynamically stable at the time of discharge, patient was cleared by GI for discharge, follow-up outpatient within 2 weeks. Disposition: [id number] HOME UNDER [facility] Time spent for discharge: 31 minutes - Discharge Diagnoses (1) Acute kidney injury Status: Acute (2) Cirrhosis of liver without ascites Status: Acute (3) Anemia Status: Chronic Qualifiers: Anemia type: unspecified type Qualified Code(s): D64.9 - Anemia, unspecified (4) EtOH dependence Status: Chronic Qualifiers: Substance use status: uncomplicated Qualified Code(s): F10.20 - Alcohol dependence, uncomplicated (5) Hypergammaglobulinemia, unspecified Status: Chronic Core Measure Documentation - Palliative Care Palliative Care/ Comfort Measures: Not Applicable - Core Measures Any of the following diagnoses?: none Exam - Physical Exam Narrative exam: Not in cardiopulmonary distress. The patient appeared well nourished and normally developed. Vital signs as documented. Head exam is unremarkable. Deep scleral icterus . Neck is without jugular venous distension, thyromegaly, or carotid bruits. Lungs are clear to auscultation. Cardiac exam reveals regular rate and Rhythm. First and second heart sounds normal. No murmurs, rubs or gallops. Abdominal exam reveals normal bowel sounds, no masses, no organomegaly and no aortic enlargement. Extremities are nonedematous and both femoral and pedal pulses are normal. SPEECH AND LANGUAGE CLINICIAN: Alert and oriented 3. No focal weakness. - Constitutional Vitals: Temp Pulse Resp BP Pulse Ox 99.7 F H 102 H 18 116/71 98 10/13/17 07:57 10/13/17 07:57 10/13/17 07:57 10/13/17 07:57 10/13/17 07:57 Plan Activity: no restrictions Weight Bearing Status: Full Weight Bearing Diet: low cholesterol Follow up with: LIBBY WILKERSON MD [Primary Care Provider] - 7 Days Prescriptions: Zolpidem [Ambien] 5 mg PO QHS PRN #12 tablet PRN Reason: Sleep Multivitamin Tab W-MINERAL [Multiple Vitamin/Mineral (Theragran M)] 1 each PO QDAY #30 tablet Nadolol [Corgard] 20 mg PO QDAY #30 tablet
== END 2017-10-13 15:33 | disposition home health service (06) | DRG 872 ==
LOC: ED 11:08 → 4A 18:14 → 3A 10-12 18:24
PROVIDERS: ADMIT Internal Medicine; ATTEND Internal Medicine
PROC: 30233L1 Transfusion of Nonautologous Fresh Plasma into Peripheral Vein, Percutaneous Approach (ICD-10-PCS; principal; 2017-10-07)
PROC: 30233N1 Transfusion of Nonautologous Red Blood Cells into Peripheral Vein, Percutaneous Approach (ICD-10-PCS; 2017-10-10)
PROC: 30233K1 Transfusion of Nonautologous Frozen Plasma into Peripheral Vein, Percutaneous Approach (ICD-10-PCS; 2017-10-10)
PROC: 0FB23ZX Excision of Left Lobe Liver, Percutaneous Approach, Diagnostic (ICD-10-PCS; 2017-10-10)
DX: A41.9 Sepsis, unspecified organism (principal); D68.4 Acquired coagulation factor deficiency; N17.9 Acute kidney failure, unspecified; K81.0 Acute cholecystitis; C22.8 Malignant neoplasm of liver, primary, unspecified as to type; K70.10 Alcoholic hepatitis without ascites; K70.30 Alcoholic cirrhosis of liver without ascites; D64.9 Anemia, unspecified; F10.20 Alcohol dependence, uncomplicated; D89.2 Hypergammaglobulinemia, unspecified
CPT/HCPCS: 36415; 47000; 71045; 74176; 74181; 76705; 77012; 80048; 80053; 80074; 81001; 82106; 82140; 82150; 82270; 82378; 82550; 82553; 82607; 82747; 82805; 83036; 83550; 83690; 83735; 83880; 84100; 84165; 84166; 84484; 85014; 85018; 85025; 85610; 85730; 86140; 86850; 86900; 86901; 86920; 87040; 87086; 87806; 88172; 88173; 88307; 88313; 88333; 93005; 93010; 96374; 96375; 99291; 99292; C9113; J1644; J2250; J2270; J2543; J3010; J3370; J7030; J7040; J7042; J7050; P9016; P9017

== ENCOUNTER 2017-10-18 16:06 | Inpatient (IN) | payer OTHER ==
[2017-10-18 17:19] LABS: Basophils # (Auto) 0.2 K/mm3 (0.0-0.1); Basophils % (Auto) 1.3 % (0.0-1.8); Eosinophils # (Auto) 0.2 K/mm3 (0.0-0.4); Eosinophils % (Auto) 1.3 % (0.0-4.3); Hematocrit 23.1 % (35.5-45.6); Hemoglobin 7.6 gm/dl (11.8-15.2); Lymphocytes # (Auto) 1.9 K/mm3 (1.2-5.4); Lymphocytes % (Auto) 12.2 % (13.4-35.0); Mean Corpuscular HGB Conc 33 % (32-34); Mean Corpuscular Hemoglobin 33 pg (28-32); Mean Corpuscular Volume 99 fl (84-94); Monocytes # (Auto) 0.9 K/mm3 (0.0-0.8); Monocytes % (Auto) 5.7 % (0.0-7.3); Platelet Count 187 K/mm3 (140-440); Red Blood Count 2.34 M/mm3 (3.65-5.03); Red Cell Distribution Width 15.2 % (13.2-15.2)
[2017-10-18 17:27] LABS: INR 1.79 (0.87-1.13)
[2017-10-18 17:34] LABS: Albumin 1.8 g/dL (3.9-5); Calcium 8.3 mg/dL (8.4-10.2)
[2017-10-18 17:46] LABS: Chol/HDL Ratio 16.71 %
[2017-10-18] MEDS ORDERED: LASIX IV ONE (18:07)
--- NOTE | 2017-10-18 18:13 | Emergency Department Report ---
HPI - General Chief Complaint: Chest Pain Time Seen by Provider: 10/18/17 17:56 - HPI HPI: 57-year-old male presents to the emergency department with complaint of chest pain, shortness of breath, bilateral flank pain and lower extremity swelling that has been going on since about the time he was last discharged, about 5 days ago. Patient was recently here for some abnormal labs , cholelithiasis and a liver biopsy that did not end up showing any malignancy. The patient initially had a history of alcohol dependence and abuse and says he has not drank anything since his previous admission and has gone 20 days. He had some level of lower extremity swelling when he was last here but it has gotten much worse and he says that he has not been on any diuretics. He has not taken anything for her symptoms of her presentation. He also complains of some generalized weakness and chills. His family says that he has kept his house at about 85F even with it being warm outside. He denies any tobacco or illicit drug use or abuse. ED Past Medical Hx - Past Medical History Previous Medical History?: Yes Additional medical history: liver failure - Social History Smoking Status: Never Smoker Substance Use Type: None - Medications Home Medications: Home Medications Medication Instructions Recorded Confirmed Last Taken Type Multivitamin Tab W-MINERAL 1 each PO QDAY #30 tablet 10/13/17 10/19/17 1 Week Ago Rx [Multiple Vitamin/Mineral ~10/12/17 (Theragran M)] Nadolol [Corgard] 20 mg PO QDAY #30 tablet 10/13/17 10/19/17 1 Week Ago Rx ~10/12/17 Zolpidem [Ambien] 5 mg PO QHS PRN #12 tablet 10/13/17 10/19/17 1 Week Ago Rx ~10/12/17 ED Review of Systems ROS: Stated complaint: CHESTPAINS Other details as noted in HPI Constitutional: chills, weakness. denies: fever Eyes: denies: eye pain, eye discharge, vision change ENT: denies: ear pain, throat pain Respiratory: cough, shortness of breath Cardiovascular: chest pain, edema Gastrointestinal: abdominal pain. denies: vomiting Genitourinary: denies: urgency, dysuria Musculoskeletal: denies: back pain, joint swelling, arthralgia Skin: change in color. denies: rash Neurological: denies: headache, numbness Physical Exam - Physical Exam Vital Signs: Vital Signs 10/18/17 16:26 Temperature 98.7 F Pulse Rate 61 Respiratory 18 Rate Blood Pressure 113/61 O2 Sat by Pulse 100 Oximetry Physical Exam: GENERAL: The patient is well-developed well-nourished. HENT: Normocephalic. Atraumatic. Patient has moist mucous membranes. EYES: Extraocular motions are intact. Pupils equal reactive to light bilaterally. Patient has scleral icterus. NECK: Supple. Trachea is midline. CHEST/LUNGS: Clear to auscultation. There is no respiratory distress noted. HEART/CARDIOVASCULAR: Regular. There is no tachycardia. There is no murmur. ABDOMEN: Abdomen is soft mild upper quadrant tenderness to palpation. No guarding. Patient has normal bowel sounds. There is no abdominal distention. SKIN: Patient is slightly jaundiced. NEURO: The patient is awake, alert, and oriented. The patient is cooperative. The patient has no focal neurologic deficits. The patient has normal speech. MUSCULOSKELETAL: There is no tenderness or deformity. There is no limitation range of motion. There is no evidence of acute injury. ED Course Vital Signs 10/18/17 16:26 Temperature 98.7 F Pulse Rate 61 Respiratory 18 Rate Blood Pressure 113/61 O2 Sat by Pulse 100 Oximetry ED Medical Decision Making - Lab Data Result diagrams: 10/20/17 04:55 10/20/17 04:55 - EKG Data -: EKG Interpreted by Me EKG shows normal: sinus rhythm, axis, intervals, QRS complexes, ST-T waves Rate: normal - EKG Data When compared to previous EKG there are: previous EKG unavailable Interpretation: normal EKG - Radiology Data Radiology results: report reviewed, image reviewed interpreted by me: Chest x-ray does not show any acute process. There are no pleural effusions, obvious pneumonia and there is no pneumothorax. EXAM: US ABDOMEN COMPLETE HISTORY: jaundice, renal insuff, abd pain COMPARISON: Abdominal ultrasound from September 2017. TECHNIQUE: Several real-time grayscale and color Doppler images were obtained. FINDINGS: Diffuse heterogeneous echogenicity of the liver with slightly nodular contour. Similar findings seen on prior study. No focal hepatic lesion is demonstrated. Sludge within the gallbladder and possible nonshadowing gallstones. Small amount of free fluid at the margin of the liver which limits evaluation of gallbladder wall thickening. The common bile duct is dilated measuring 10 millimeters. No obstructive lesion identified within the common bile duct. Distal common bile duct not visualized. Spleen measures 12.4 centimeters in length, mildly enlarged. Pancreas is obscured by bowel gas. Visualized distal aorta is normal in caliber. The right kidney measures 12 centimeters in length. Left kidney measures 11 centimeters in length. No hydronephrosis. IMPRESSION: Heterogeneous echogenicity of the liver with slight nodular contour concerning for cirrhosis. Small amount of perihepatic ascites. No focal pancreatic lesion is demonstrated. Sludge within the gallbladder and possible tiny non shadowing gallstones. Presence of perihepatic ascites limits evaluation of gallbladder wall thickening. If there is clinical concern for acute cholecystitis, nuclear medicine HIDA scan may be of benefit for further evaluation. Mild dilatation the common bile duct measuring up to 10 millimeters. No obstructive lesion identified within the visualized portions the common bile duct. If bilirubin is elevated, CT of the abdomen or MRCP may be of benefit for further evaluation. Transcribed By: LMA Dictated By: MARCELA BURNETT MD Electronically Authenticated By: MARCELA BURNETT MD Signed Date/Time: 10/19/17 0133 - Medical Decision Making Patient presents with complaints of some chest pain, abdominal pain, weakness. EKG does not show any signs of ST elevation [place]. Patient's labs did show elevation in troponins that started at 0.05 and has trended down to about 0.03. There is some mild hyponatremia with a sodium of 130. Patient has hyperbilirubinemia with a total bilirubin of 18. He has elevation of his INR despite not being on anticoagulation. The elevated bilirubin level is higher than his previous visit here 2 weeks ago. He has some new renal insufficiency/ KAMILAH. Chest x-ray does not show any acute process. Abdominal ultrasound shows gallbladder sludge but no definitive signs of cholecystitis. The biliary duct is borderline dilated but no obstructive lesion seen in the visualized portions of the bile duct. The liver still shows the same nodular masses that were previously biopsied. Kidneys appear normal in shape and size. Vital signs stable throughout his course including being afebrile. Patient appears to require readmission. Patient has been accepted for admission by the hospitalist , Dr Lyn. - Differential Diagnosis cholelithiasis, choledocholithiasis, cholecystitis, [place], pneumonia Critical Care Time: No Critical care attestation.: If time is entered above; I have spent that time in minutes in the direct care of this critically ill patient, excluding procedure time. ED Disposition Clinical Impression: Hyperbilirubinemia, Acute kidney injury, Elevated troponin, Liver masses Liver cirrhosis Qualifiers: Hepatic cirrhosis type: alcoholic cirrhosis Ascites presence: unspecified Qualified Code(s): K70.30 - Alcoholic cirrhosis of liver without ascites Cholelithiasis Qualifiers: Cholelithiasis location: gallbladder Cholecystitis presence: without cholecystitis Biliary obstruction: without biliary obstruction Qualified Code(s) : K80.20 - Calculus of gallbladder without cholecystitis without obstruction Disposition: OP ADMIT IP TO THIS HOSP Is pt being admited?: Yes Condition: Fair Time of Disposition: 02:11
--- NOTE | 2017-10-18 20:21 | XRay Report ---
FINAL REPORT EXAM: XR CHEST 1V AP HISTORY: CP TECHNIQUE: AP portable view of the chest. PRIORS: None. FINDINGS: The cardiomediastinal silhouette appears normal. The lungs are clear. The bones and soft tissues are unremarkable. IMPRESSION: No evidence of acute cardiopulmonary disease.
[2017-10-18 22:09] LABS: Bilirubin,Urine SM (Negative); Blood,Urine SM (Negative); Mucus,Urine FEW /HPF; Protein,Urine <15 mg/dL mg/dL (Negative)
[2017-10-18 22:10] LABS: Color,Urine Dark Yellow (Yellow); Ictotest,Urine Positive (Negative)
[2017-10-18] MEDS ORDERED: PERCOCET 5/325 ONE (22:33)
[2017-10-18] MEDS ORDERED: PERCOCET 5/325 PO ONE (22:33)
--- NOTE | 2017-10-19 01:39 | Ultrasound Report ---
FINAL REPORT EXAM: US ABDOMEN COMPLETE HISTORY: jaundice, renal insuff, abd pain COMPARISON: Abdominal ultrasound from September 2017. TECHNIQUE: Several real-time grayscale and color Doppler images were obtained. FINDINGS: Diffuse heterogeneous echogenicity of the liver with slightly nodular contour. Similar findings seen on prior study. No focal hepatic lesion is demonstrated. Sludge within the gallbladder and possible nonshadowing gallstones. Small amount of free fluid at the margin of the liver which limits evaluation of gallbladder wall thickening. The common bile duct is dilated measuring 10 millimeters. No obstructive lesion identified within the common bile duct. Distal common bile duct not visualized. Spleen measures 12.4 centimeters in length, mildly enlarged. Pancreas is obscured by bowel gas. Visualized distal aorta is normal in caliber. The right kidney measures 12 centimeters in length. Left kidney measures 11 centimeters in length. No hydronephrosis. IMPRESSION: Heterogeneous echogenicity of the liver with slight nodular contour concerning for cirrhosis. Small amount of perihepatic ascites. No focal pancreatic lesion is demonstrated. Sludge within the gallbladder and possible tiny non shadowing gallstones. Presence of perihepatic ascites limits evaluation of gallbladder wall thickening. If there is clinical concern for acute cholecystitis, nuclear medicine HIDA scan may be of benefit for further evaluation. Mild dilatation the common bile duct measuring up to 10 millimeters. No obstructive lesion identified within the visualized portions the common bile duct. If bilirubin is elevated, CT of the abdomen or MRCP may be of benefit for further evaluation.
[2017-10-19] MEDS ORDERED: NACL 0.9% 1000 ML 1,000 ML IV ONE (02:10)
[2017-10-19] MEDS ORDERED: TYLENOL PO PRN (03:12)
[2017-10-19] MEDS ORDERED: ZOFRAN IV PRN (03:12)
[2017-10-19] MEDS ORDERED: SODIUM CHLORIDE FLUSH SYRINGE 10 ML IV PRN (03:12)
[2017-10-19] MEDS ORDERED: PERCOCET 5/325 PO PRN (03:12)
--- NOTE | 2017-10-19 03:16 | History and Physical Report ---
History of Present Illness Date of examination: 10/19/17 History of present illness: This is a 57-year-old man was just discharged from the hospital, he was recently diagnosed with cirrhosis, quit alcohol use 20 days ago, to the hospital with right upper quadrant pain and chest pain, he stated he had these symptoms on the last admission and they have not improved. In addition his feet are swollen. He described the chest pain and right upper quadrant pain as a hurting pain, constant, intense in the 11/26, no radiation, he can identify exacerbating or relieving factor. He denies nausea vomiting, shortness of breath, diaphoresis or palpitation Review of systems Constitutional: no weight loss, chills Ears, eyes, nose, mouth and throat: no nasal congestion, no nasal discharge, no sinus pressure, no vision change, no red eye. Neck: No neck pain or rigidity. Cardiovascular: no palpitations Respiratory: No cough, shortness of breath Gastrointestinal: no hematochezia Genitourinary : no dysuria, frequency , no hematuria Musculoskeletal: no joint swelling or muscle ache Integumentary: no rash, no pruritis Neurological: no parathesias, no numbness, no focal weakness Endocrine: no cold or heat intolerance, no polyuria or polydipsia Hematologic/Lymphatic: no easy bruising, no easy bleeding, no gland swelling Allergic/Immunologic: no urticaria, no angioedema. PAST MEDICAL HISTORY: Cirrhosis PAST SURGICAL HISTORY: None SOCIAL HISTORY: Quit alcohol abuse, no tobacco or drugs FAMILY HISTORY: Hypertension Medications and Allergies Allergies Allergy/AdvReac Type Severity Reaction Status Date / Time No Known Allergies Allergy Verified 10/07/17 11:38 Home Medications Medication Instructions Recorded Confirmed Last Taken Type Multivitamin Tab W-MINERAL 1 each PO QDAY #30 tablet 10/13/17 Unknown Rx [Multiple Vitamin/Mineral (Theragran M)] Nadolol [Corgard] 20 mg PO QDAY #30 tablet 10/13/17 Unknown Rx Zolpidem [Ambien] 5 mg PO QHS PRN #12 tablet 10/13/17 Unknown Rx Active Meds: Active Medications Sodium Chloride (Nacl 0.9% 1000 Ml) 1,000 mls @ 250 mls/hr IV ONCE ONE Stop: 10/19/17 06:09 Exam - Physical Exam Narrative exam: Gen. appearance: Patient lying in bed, no apparent distress HEENT: Normocephalic, atraumatic, pupils equally round and reactive to light, extraocular movement intact, and no sclericterus,. No JVD or thyromegaly or nodule,neck supple, no carotid bruit ,mucous membranes moist, no exudate or erythema Heart: S1, S2, regular rate and rhythm Lungs: Clear to auscultation bilaterally, breathing comfortable Abdomen: Positive bowel sounds, tender in right upper quadrant, nondistended, no organomegaly Extremity: +2 edema, no cyanosis, clubbing Skin: No rash, nodules, warm, dry Neuro: Oriented 3, cranial nerves II-12 intact, speech is fluent, motor and sensory intact - Constitutional Vitals: Temp Pulse Resp BP Pulse Ox 98.7 F 75 15 93/45 99 10/18/17 16:26 10/18/17 22:00 10/18/17 22:00 10/19/17 00:34 10/19/17 00:34 Results - Labs CBC & Chem 7: 10/18/17 17:06 10/18/17 17:06 Labs: Abnormal lab results 10/18/17 10/18/17 10/18/17 Range/Units 17:06 17:06 17:06 WBC 15.4 H (4.5-11.0) K/mm3 RBC 2.34 L (3.65-5.03) M/mm3 Hgb 7.6 L (11.8-15.2) gm/dl Hct 23.1 L (35.5-45.6) % MCV 99 H (84-94) fl MCH 33 H (28-32) pg Lymph % (Auto) 12.2 L (13.4-35.0) % [place] # 0.9 H (0.0-0.8) K/mm3 Baso # 0.2 H (0.0-0.1) K/mm3 Seg Neutrophils % 79.5 H (40.0-70.0) % Seg Neutrophils # 12.2 H (1.8-7.7) K/mm3 PT 21.9 H (12.2-14.9) Sec. INR 1.79 H (0.87-1.13) APTT 53.0 H (24.2-36.6) Sec. Sodium 130 L (137-145) mmol/L Potassium 5.1 H (3.6-5.0) mmol/L Carbon Dioxide 13 L (22-30) mmol/L BUN 52 H (9-20) mg/dL Creatinine 2.5 H (0.8-1.5) mg/dL Glucose 111 H (75-100) mg/dL Calcium 8.3 L (8.4-10.2) mg/dL Total Bilirubin 18.90 H (0.1-1.2) mg/dL AST 209 H (5-40) units/L Troponin T 0.050 H (0.00-0.029) ng/mL Total Protein 8.6 H (6.3-8.2) g/dL Albumin 1.8 L (3.9-5) g/dL Triglycerides 262 H (2-149) mg/dL LDL Cholesterol Direct 14 L (50-130) mg/dL HDL Cholesterol 7 L (40-59) mg/dL Lipase 92 H (13-60) units/L 10/18/17 10/18/17 Range/Units 18:08 22:41 WBC (4.5-11.0) K/mm3 RBC (3.65-5.03) M/mm3 Hgb (11.8-15.2) gm/dl Hct (35.5-45.6) % MCV (84-94) fl MCH (28-32) pg Lymph % (Auto) (13.4-35.0) % [place] # (0.0-0.8) K/mm3 Baso # (0.0-0.1) K/mm3 Seg Neutrophils % (40.0-70.0) % Seg Neutrophils # (1.8-7.7) K/mm3 PT (12.2-14.9) Sec. INR (0.87-1.13) APTT (24.2-36.6) Sec. Sodium (137-145) mmol/L Potassium (3.6-5.0) mmol/L Carbon Dioxide (22-30) mmol/L BUN (9-20) mg/dL Creatinine (0.8-1.5) mg/dL Glucose (75-100) mg/dL Calcium (8.4-10.2) mg/dL Total Bilirubin (0.1-1.2) mg/dL AST (5-40) units/L Troponin T 0.042 H 0.031 H D (0.00-0.029) ng/mL Total Protein (6.3-8.2) g/dL Albumin (3.9-5) g/dL Triglycerides (2-149) mg/dL LDL Cholesterol Direct (50-130) mg/dL HDL Cholesterol (40-59) mg/dL Lipase (13-60) units/L - Imaging and Cardiology US - abdomen: report reviewed Assessment and Plan Assessment Cirrhosis now with ascites Leukocytosis, rule out infection acute renal insufficiency Chest pain Coagulopathy Plan Admit to medicine Start IV antibiotic, IV Lasix, consult GI, folow cultures Check cardiac enzymes, consult cardiology DVT prophylaxis
[2017-10-19] MEDS ORDERED: ROCEPHIN/NS 1 GM/50 ML 1 GM/50 ML BAG IV SCH (04:00)
[2017-10-19] MEDS: cefTRIAXone 1 GM in NACL 0.9% 20 ML IV SCH (05:05)
--- NOTE | 2017-10-19 10:02 | Progress Note ---
Assessment and Plan Assessment and plan: This is a 57-year-old man was just discharged from the hospital, he was recently diagnosed with cirrhosis, quit alcohol use 20 days ago, to the hospital with right upper quadrant pain and chest pain, he stated he had these symptoms on the last admission and they have not improved. In addition his feet are swollen. He described the chest pain and right upper quadrant pain as a hurting pain, constant, intense in the 6/10, no radiation, he can identify exacerbating or relieving factor. He denies nausea vomiting, shortness of breath, diaphoresis or palpitation. Review of last visit work up showed that pathology indicative of Alcohol liver disease with no malignancy, outpatient GI and oncology eval was recommended. MRCP was also indicative of mild to moderate Ascities and Portal hypertension with esophageal and splenic varices. Patient on returning to the ER this time has noted, and Elevated Renal function, worsening lower ext swelling and elevated Troponin Decompensated Liver disease with Alcholic Cirrhosis and now some ascities KAMILAH possible Hepato-renal syndrome Atypical Chest pain with Presumed Type 2 DE Anemia Secondary HyperCoagulopathy SIRS Secondary to Non infectious etiology. 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 He understands and verbalized understanding of treatment plan. History Interval history: Patient is seen today for: Decompensated cirrhosis with worsening edema Seen and examined at bedside; 24hour events reviewed; nursing staff ; no adverse overnight events reported to me; Denies any chest pain, nausea, vomiting , diarrhea. Reports abdominal discomfort. Relates generalized and3/10 intensity No fever noted blood pressure controlled Hospitalist Physical - Physical exam Narrative exam: VITAL SIGNS: Reviewed. GENERAL: The patient appeared well nourished and normally developed. Vital signs as documented. HEAD: No signs of head trauma. EYES: Pupils are equal. Extraocular motions intact. Conjunctivae EARS: Hearing grossly intact. MOUTH: Oropharynx is normal. NECK: No adenopathy, no JVD. CHEST: Chest with clear breath sounds bilaterally. No wheezes, rales, or rhonchi. CARDIAC: Regular rate and rhythm. S1 and S2, without murmurs, gallops, or rubs. VASCULAR: 2+ pitting Edema. Peripheral pulses normal and equal in all extremities. ABDOMEN: Soft, without detectable tenderness. No sign of distention. No rebound or guarding, and no masses palpated. Bowel Sounds normal. MUSCULOSKELETAL: Good range of motion of all major joints. Extremities without clubbing, cyanosis. 2+ pitting edema. NEUROLOGIC EXAM: Alert and oriented x 3. No focal sensory or strength deficits. Speech normal. Follows commands. PSYCHIATRIC: Mood normal. SKIN: Jaundice - Constitutional Vitals: Temp Pulse Resp BP Pulse Ox 98.4 F 76 14 100/55 98 10/19/17 07:27 10/19/17 07:27 10/19/17 07:27 10/19/17 07:27 10/19/17 07:27 Results - Labs CBC & Chem 7: 10/20/17 04:55 10/20/17 04:55 Labs: Laboratory Last Values WBC 15.4 K/mm3 (4.5-11.0) H 10/18/17 17:06 RBC 2.34 M/mm3 (3.65-5.03) L 10/18/17 17:06 Hgb 7.6 gm/dl (11.8-15.2) L 10/18/17 17:06 Hct 23.1 % (35.5-45.6) L 10/18/17 17:06 MCV 99 fl (84-94) H 10/18/17 17:06 MCH 33 pg (28-32) H 10/18/17 17:06 MCHC 33 % (32-34) 10/18/17 17:06 RDW 15.2 % (13.2-15.2) 10/18/17 17:06 Plt Count 187 K/mm3 (140-440) 10/18/17 17:06 Lymph % (Auto) 12.2 % (13.4-35.0) L 10/18/17 17:06 [place] % (Auto) 5.7 % (0.0-7.3) 10/18/17 17:06 Eos % (Auto) 1.3 % (0.0-4.3) 10/18/17 17:06 Baso % (Auto) 1.3 % (0.0-1.8) 10/18/17 17:06 Lymph # 1.9 K/mm3 (1.2-5.4) 10/18/17 17:06 [place] # 0.9 K/mm3 (0.0-0.8) H 10/18/17 17:06 Eos # 0.2 K/mm3 (0.0-0.4) 10/18/17 17:06 Baso # 0.2 K/mm3 (0.0-0.1) H 10/18/17 17:06 Seg Neutrophils % 79.5 % (40.0-70.0) H 10/18/17 17:06 Seg Neutrophils # 12.2 K/mm3 (1.8-7.7) H 10/18/17 17:06 PT 21.9 Sec. (12.2-14.9) H 10/18/17 17:06 INR 1.79 (0.87-1.13) H 10/18/17 17:06 APTT 53.0 Sec. (24.2-36.6) H 10/18/17 17:06 Sodium 130 mmol/L (137-145) L 10/18/17 17:06 Potassium 5.1 mmol/L (3.6-5.0) H 10/18/17 17:06 Chloride 99.7 mmol/L (98-107) 10/18/17 17:06 Carbon Dioxide 13 mmol/L (22-30) L 10/18/17 17:06 Anion Gap 22 mmol/L 10/18/17 17:06 BUN 52 mg/dL (9-20) H 10/18/17 17:06 Creatinine 2.5 mg/dL (0.8-1.5) H 10/18/17 17:06 Estimated GFR 32 ml/min 10/18/17 17:06 BUN/Creatinine Ratio 21 % 10/18/17 17:06 Glucose 111 mg/dL (75-100) H 10/18/17 17:06 Calcium 8.3 mg/dL (8.4-10.2) L 10/18/17 17:06 Total Bilirubin 18.90 mg/dL (0.1-1.2) H 10/18/17 17:06 AST 209 units/L (5-40) H 10/18/17 17:06 ALT 51 units/L (7-56) 10/18/17 17:06 Alkaline Phosphatase 100 units/L (35-129) 10/18/17 17:06 Troponin T 0.031 ng/mL (0.00-0.029) H D 10/18/17 22:41 Total Protein 8.6 g/dL (6.3-8.2) H 10/18/17 17:06 Albumin 1.8 g/dL (3.9-5) L 10/18/17 17:06 Albumin/Globulin Ratio 0.3 % 10/18/17 17:06 Triglycerides 262 mg/dL (2-149) H 10/18/17 17:06 Cholesterol 117 mg/dL (50-199) 10/18/17 17:06 LDL Cholesterol Direct 14 mg/dL (50-130) L 10/18/17 17:06 HDL Cholesterol 7 mg/dL (40-59) L 10/18/17 17:06 Cholesterol/HDL Ratio 16.71 % 10/18/17 17:06 Lipase 92 units/L (13-60) H 10/18/17 17:06 Urine Color Dark yellow (Yellow) 10/18/17 Unknown Urine Turbidity Clear (Clear) 10/18/17 Unknown Urine pH 6.0 (5.0-7.0) 10/18/17 Unknown Ur Specific [place] 1.008 (1.003-1.030) 10/18/17 Unknown Urine Protein <15 mg/dl mg/dL (Negative) 10/18/17 Unknown Urine Glucose (UA) Neg mg/dL (Negative) 10/18/17 Unknown Urine Ketones Neg mg/dL (Negative) 10/18/17 Unknown Urine Blood Sm (Negative) 10/18/17 Unknown Urine Nitrite Neg (Negative) 10/18/17 Unknown Urine Bilirubin Sm (Negative) 10/18/17 Unknown Urine Ictotest Positive (Negative) 10/18/17 Unknown Urine Urobilinogen 2.0 mg/dL (<2.0) 10/18/17 Unknown Ur Leukocyte Esterase Neg (Negative) 10/18/17 Unknown Urine WBC (Auto) 2.0 /HPF (0.0-6.0) 10/18/17 Unknown Urine RBC (Auto) 24.0 /HPF (0.0-6.0) 10/18/17 Unknown Urine Mucus Few /HPF 10/18/17 Unknown - Imaging and Cardiology CT scan - abdomen: image reviewed (hepatic nodules)
[2017-10-19] MEDS ORDERED: MORPHINE IV PRN (10:49)
[2017-10-19] MEDS ORDERED: PROVENTIL IH PRN (10:51)
[2017-10-19] MEDS: SODIUM CHLORIDE FLUSH SYRINGE 10 ML IV SCH ×2 (11:36→21:07)
[2017-10-19] MEDS: CEPHULAC PO SCH ×3 (13:36→23:42)
--- NOTE | 2017-10-19 14:52 | Consultation ---
History of Present Illness Consult date: 10/19/17 Consult reason: chest pain, elevated troponin History of present illness: This is a 57yr old male with a history of liver cirrhosis who presented with abdominal pain, weakness, chills, shortness of breath and lower extremity edema admitted for further evaluation. Initial laboratory studies shows multiple metabolic abnormalities including a total bilirubin of 18.9 with an INR of 1.79 ; Creatinine of 2.5, WBC of 15.4 and a hematocrit of 23. Chest xray reports no acute process. A cardiac consultation is requested for chest pain and elevation of troponin. Patient reports chest pain is non-exertional, intermittent over the past several days. Troponin level of 0.042 is likely in the setting of acute renal failure. His ECG is a sinus rhythm, no acute ischemic changes. Medications and Allergies Allergies Allergy/AdvReac Type Severity Reaction Status Date / Time No Known Allergies Allergy Verified 10/07/17 11:38 Home Medications Medication Instructions Recorded Confirmed Last Taken Type Multivitamin Tab W-MINERAL 1 each PO QDAY #30 tablet 10/13/17 10/19/17 1 Week Ago Rx [Multiple Vitamin/Mineral ~10/12/17 (Theragran M)] Nadolol [Corgard] 20 mg PO QDAY #30 tablet 10/13/17 10/19/17 1 Week Ago Rx ~10/12/17 Zolpidem [Ambien] 5 mg PO QHS PRN #12 tablet 10/13/17 10/19/17 1 Week Ago Rx ~10/12/17 Active Meds: Active Medications Acetaminophen (Tylenol) 650 mg PO Q4H PRN PRN Reason: Pain MILD(1-3)/Fever >100.5/MEYER Albuterol (Proventil) 2.5 mg IH Q4HRT PRN PRN Reason: Shortness Of Breath Albuterol/Ipratropium (Duoneb *Not For Prn Use*) 1 ampul IH Q6HRT [facility] Ceftriaxone Sodium 1 gm/ (Sodium Chloride) 20 mls @ 2 mls/min IV Q24HR [facility] Last Admin: 10/19/17 05:05 Dose: 2 mls/min Lactulose (Cephulac) 20 gm PO Q6HR [facility] Last Admin: 10/19/17 13:36 Dose: 20 gm Morphine Sulfate (Morphine) 2 mg IV Q4H PRN PRN Reason: Pain, Moderate (4-6) Last Admin: 10/19/17 14:37 Dose: 2 mg Ondansetron HCl (Zofran) 4 mg IV Q8H PRN PRN Reason: Nausea And Vomiting Sodium Chloride (Sodium Chloride Flush Syringe 10 Ml) 10 ml IV BID DAJA Last Admin: 10/19/17 11:36 Dose: 10 ml Sodium Chloride (Sodium Chloride Flush Syringe 10 Ml) 10 ml IV PRN PRN PRN Reason: LINE FLUSH Physical Examination Vital Signs Temp Pulse Resp BP Pulse Ox 98.7 F 61 18 113/61 100 10/18/17 16:26 10/18/17 16:26 10/18/17 16:26 10/18/17 16:26 10/18/17 16:26 General appearance: no acute distress HEENT: Positive: Jaundice Cardiac: Positive: Reg Rate and Rhythm Lungs: Positive: Decreased Breath Sounds Neuro: Positive: Weakness Abdomen: Positive: Distended Extremities: Present: edema Results 10/18/17 17:06 10/18/17 17:06 Cardiac Enzymes 10/18/17 Range/Units 17:06 AST 209 H (5-40) units/L Coagulation 10/18/17 Range/Units 17:06 PT 21.9 H (12.2-14.9) Sec. INR 1.79 H (0.87-1.13) APTT 53.0 H (24.2-36.6) Sec. Lipids 10/18/17 Range/Units 17:06 Triglycerides 262 H (2-149) mg/dL Cholesterol 117 (50-199) mg/dL HDL Cholesterol 7 L (40-59) mg/dL Cholesterol/HDL Ratio 16.71 % CBC 10/18/17 Range/Units 17:06 WBC 15.4 H (4.5-11.0) K/mm3 RBC 2.34 L (3.65-5.03) M/mm3 Hgb 7.6 L (11.8-15.2) gm/dl Hct 23.1 L (35.5-45.6) % Plt Count 187 (140-440) K/mm3 Lymph # 1.9 (1.2-5.4) K/mm3 Levy # 0.9 H (0.0-0.8) K/mm3 Eos # 0.2 (0.0-0.4) K/mm3 Baso # 0.2 H (0.0-0.1) K/mm3 Comprehensive Metabolic Panel 10/18/17 Range/Units 17:06 Sodium 130 L (137-145) mmol/L Potassium 5.1 H (3.6-5.0) mmol/L Chloride 99.7 (98-107) mmol/L Carbon Dioxide 13 L (22-30) mmol/L BUN 52 H (9-20) mg/dL Creatinine 2.5 H (0.8-1.5) mg/dL Glucose 111 H (75-100) mg/dL Calcium 8.3 L (8.4-10.2) mg/dL AST 209 H (5-40) units/L ALT 51 (7-56) units/L Alkaline Phosphatase 100 (35-129) units/L Total Protein 8.6 H (6.3-8.2) g/dL Albumin 1.8 L (3.9-5) g/dL Assessment and Plan Alcoholic Liver cirrhosis Hypercoagulopathy Acute renal failure Leukocytosis/Hyperkalemia/Hyponatremia Anemia Atypical chest pain Mild elevation of troponin likely in the setting of acute renal failure
[2017-10-19] MEDS: DUONEB *Not for PRN Use IH SCH ×2 (15:10→20:18)
--- NOTE | 2017-10-19 17:09 | Consultation ---
History of Present Illness - Reason for Consult Consult date: 10/19/17 acute renal failure Requesting physician: AMAYA AMAYA - History of Present Illness This is a 57 y/o male with PMH of liver cirrhosis, HTN, and alcohol abuse (last drank about 22 days ago) who presented to [facility] with c/o chest pain, generalized weakness, abdominal pain, shortness of breath, and bilateral lower extremity swelling per medical record. Pt was given morphine for pain, lethargic, unable to provide history. Pt was recently discharged from this hospital last month. CXR showed no acute process. Cardiology consulted for evaluation of chest pain and elevated troponin. On admission, SCr level was 2.5. We were consulted to evaluate this pt who has KAMILAH and nephrology consultation requested. . Past History Past Medical History: hypertension, liver disease Medications and Allergies Allergies Allergy/AdvReac Type Severity Reaction Status Date / Time No Known Allergies Allergy Verified 10/07/17 11:38 Home Medications Medication Instructions Recorded Confirmed Last Taken Type Multivitamin Tab W-MINERAL 1 each PO QDAY #30 tablet 10/13/17 10/19/17 1 Week Ago Rx [Multiple Vitamin/Mineral ~10/12/17 (Theragran M)] Nadolol [Corgard] 20 mg PO QDAY #30 tablet 10/13/17 10/19/17 1 Week Ago Rx ~10/12/17 Zolpidem [Ambien] 5 mg PO QHS PRN #12 tablet 10/13/17 10/19/17 1 Week Ago Rx ~10/12/17 Active Meds: Active Medications Acetaminophen (Tylenol) 650 mg PO Q4H PRN PRN Reason: Pain MILD(1-3)/Fever >100.5/MEYER Albuterol (Proventil) 2.5 mg IH Q4HRT PRN PRN Reason: Shortness Of Breath Albuterol/Ipratropium (Duoneb *Not For Prn Use*) 1 ampul IH Q6HRT [facility] Last Admin: 10/19/17 15:10 Dose: 1 ampul Ceftriaxone Sodium 1 gm/ (Sodium Chloride) 20 mls @ 2 mls/min IV Q24HR [facility] Last Admin: 10/19/17 05:05 Dose: 2 mls/min Lactulose (Cephulac) 20 gm PO Q6HR [facility] Last Admin: 10/19/17 13:36 Dose: 20 gm Morphine Sulfate (Morphine) 2 mg IV Q4H PRN PRN Reason: Pain, Moderate (4-6) Last Admin: 10/19/17 14:37 Dose: 2 mg Ondansetron HCl (Zofran) 4 mg IV Q8H PRN PRN Reason: Nausea And Vomiting Sodium Chloride (Sodium Chloride Flush Syringe 10 Ml) 10 ml IV BID DAJA Last Admin: 10/19/17 11:36 Dose: 10 ml Sodium Chloride (Sodium Chloride Flush Syringe 10 Ml) 10 ml IV PRN PRN PRN Reason: LINE FLUSH Review of Systems Constitutional: fatigue, weakness Cardiovascular: chest pain, leg edema Gastrointestinal: abdominal pain, no nausea, no vomiting, no diarrhea, no constipation Neurological: weakness Exam - Vital Signs Vital signs: Vital Signs Temp Pulse Resp BP Pulse Ox 98.7 F 61 18 113/61 100 10/18/17 16:26 10/18/17 16:26 10/18/17 16:26 10/18/17 16:26 10/18/17 16:26 - General Appearance General appearance: other (resting in bed, no acute distress) EENT: ATNC, sclera incterus Neck: Present: neck supple Respiratory: Other (Lung sounds decreased bilaterally, unlabored) Heart: regular, S1S2 Gastrointestinal: Present: normoactive bowel sounds, distended Integumentary: warm and dry Neurologic: other (lethargic, given morphine prior to my exam) Musculoskeletal: Present: other (2+ edema to both lower extremities) Results - Lab Results 10/18/17 17:06 10/18/17 17:06 Most recent lab results Calcium 8.3 mg/dL (8.4-10.2) L 10/18/17 17:06 Assessment and Plan Assessment/Plan: Alcoholic Liver Cirrhosis with ascites: Jaundice: Abdominal Pain: On lactulose, zofran, obtain MRCP GI consulted, f/u recs Abdominal US on 10/18/17 showed concern for cirrhosis, small amount of perihepatic ascites, no focal pancreatic lesion, sludge within gallbladder and possible tiny non-shadowing gallstones, presence of perihepatic ascites limits evaluation of gallbladder wall thickening Abdominal paracentesis ordered for 10/20/17 Chest Pain: Cardiology consulted, evaluated pt, no additional cardiac work up needed at this time Acute Kidney Injury possibly secondary to ATN, hypotension, questionable hepatorenal syndrome, possible underlying CKD process: Labs pending today Renal function reviewed on admission showed SCr level of 2.5 Review of labs from September of 2017 showed SCr level between 1.4-1.6 Renally dose meds Obtain daily weight Check Renal US Obtain urine lytes Check urine for proteinuria Strict intake and output [place] Catheter: No Renal plan d/w Dr Montano Continue supportive therapy Hyponatremia: Labs pending today Check osmolality studies Check urine lytes Hyperkalemia: Serum potassium level on admission was 5.1 Follow up labs today Hypotension: Holding anti-hypertensive meds Monitor closely, make adjustments depending on clinical findings
--- NOTE | 2017-10-19 17:33 | Gastroenterology Consultation ---
History of Present Illness - Reason for Consult Consult date: 10/19/17 cirrhosis Requesting physician: AMAYA AMAYA - History of Present Illness Mr Conway is a 57 yo aam with h/o decompensated alcohol cirrhosis who presents with abdominal/chest pain. Pt awake and resting comfortably at time of exam. He c/o worsening jaundice since recent admission. He last drank alcohol 22 days ago. He reports progressive fatigue/weakness. He recently had imaging g showing multiple liver lesions however normal AFP. Denies gi bleeding. abd pain currently improved. Pattern of labs suggestive of possible component of alc hepatitis as well. Past History Past Medical History: liver disease Social history: alcohol abuse Family history: no significant family history Medications and Allergies Allergies Allergy/AdvReac Type Severity Reaction Status Date / Time No Known Allergies Allergy Verified 10/07/17 11:38 Home Medications Medication Instructions Recorded Confirmed Last Taken Type Multivitamin Tab W-MINERAL 1 each PO QDAY #30 tablet 10/13/17 10/19/17 1 Week Ago Rx [Multiple Vitamin/Mineral ~10/12/17 (Theragran M)] Nadolol [Corgard] 20 mg PO QDAY #30 tablet 10/13/17 10/19/17 1 Week Ago Rx ~10/12/17 Zolpidem [Ambien] 5 mg PO QHS PRN #12 tablet 10/13/17 10/19/17 1 Week Ago Rx ~10/12/17 Active Meds: Active Medications Acetaminophen (Tylenol) 650 mg PO Q4H PRN PRN Reason: Pain MILD(1-3)/Fever >100.5/MEYER Albuterol (Proventil) 2.5 mg IH Q4HRT PRN PRN Reason: Shortness Of Breath Albuterol/Ipratropium (Duoneb *Not For Prn Use*) 1 ampul IH Q6HRT [facility] Last Admin: 10/19/17 15:10 Dose: 1 ampul Ceftriaxone Sodium 1 gm/ (Sodium Chloride) 20 mls @ 2 mls/min IV Q24HR [facility] Last Admin: 10/19/17 05:05 Dose: 2 mls/min Lactulose (Cephulac) 20 gm PO Q6HR [facility] Last Admin: 10/19/17 13:36 Dose: 20 gm Morphine Sulfate (Morphine) 2 mg IV Q4H PRN PRN Reason: Pain, Moderate (4-6) Last Admin: 10/19/17 14:37 Dose: 2 mg Ondansetron HCl (Zofran) 4 mg IV Q8H PRN PRN Reason: Nausea And Vomiting Sodium Chloride (Sodium Chloride Flush Syringe 10 Ml) 10 ml IV BID DAJA Last Admin: 10/19/17 11:36 Dose: 10 ml Sodium Chloride (Sodium Chloride Flush Syringe 10 Ml) 10 ml IV PRN PRN PRN Reason: LINE FLUSH Exam - Constitutional Vital Signs: Temp Pulse Resp BP Pulse Ox 98.3 F 78 18 89/51 99 10/19/17 12:34 10/19/17 15:25 10/19/17 15:25 10/19/17 12:34 10/19/17 15:28 General appearance: no acute distress - EENT Eyes: scleral icterus - Respiratory Respiratory effort: normal Respiratory: bilateral: CTA - Gastrointestinal General gastrointestinal: Present: soft, non-tender, normal bowel sounds - Neurologic Neurological: oriented to person, oriented to place - Labs CBC & Chem 7: 10/18/17 17:06 10/19/17 19:19 Lab Results: Laboratory Results - last 24 hr 10/18/17 10/18/17 10/18/17 17:06 18:08 22:41 Sodium 130 L Potassium 5.1 H Chloride 99.7 Carbon Dioxide 13 L Anion Gap 22 BUN 52 H Creatinine 2.5 H Estimated GFR 32 BUN/Creatinine Ratio 21 Glucose 111 H Calcium 8.3 L Total Bilirubin 18.90 H AST 209 H ALT 51 Alkaline Phosphatase 100 Ammonia Troponin T 0.050 H 0.042 H 0.031 H D Total Protein 8.6 H Albumin 1.8 L Albumin/Globulin Ratio 0.3 Triglycerides 262 H Cholesterol 117 LDL Cholesterol Direct 14 L HDL Cholesterol 7 L Cholesterol/HDL Ratio 16.71 Lipase 92 H Urine Color Urine Turbidity Urine pH Ur Specific [place] Urine Protein Urine Glucose (UA) Urine Ketones Urine Blood Urine Nitrite Urine Bilirubin Urine Ictotest Urine Urobilinogen Ur Leukocyte Esterase Urine WBC (Auto) Urine RBC (Auto) Urine Mucus 10/18/17 10/19/17 Unknown 11:10 Sodium Potassium Chloride Carbon Dioxide Anion Gap BUN Creatinine Estimated GFR BUN/Creatinine Ratio Glucose Calcium Total Bilirubin AST ALT Alkaline Phosphatase Ammonia 66.0 H Troponin T Total Protein Albumin Albumin/Globulin Ratio Triglycerides Cholesterol LDL Cholesterol Direct HDL Cholesterol Cholesterol/HDL Ratio Lipase Urine Color Dark yellow Urine Turbidity Clear Urine pH 6.0 Ur Specific [place] 1.008 Urine Protein <15 mg/dl Urine Glucose (UA) Neg Urine Ketones Neg Urine Blood Sm Urine Nitrite Neg Urine Bilirubin Sm Urine Ictotest Positive Urine Urobilinogen 2.0 Ur Leukocyte Esterase Neg Urine WBC (Auto) 2.0 Urine RBC (Auto) 24.0 Urine Mucus Few Assessment and Plan 1. Decompensated cirrhosis - underlying cirrhosis likely related to alcohol 2. Abnormal liver enzymes - pattern and supported alcohol history suggestive of alc hepatitis. consider starting treatment for alc hep based on repeat labs and based on presence of contr-indications to certain treatments 2. Liver lesions - repeat imaging and tumor markers. consider heme/onc consult if unable to establish diagnosis. 3. Encephalopathy - cont schedule lactulose until 3 bm's are achieved daily. will start xifaxin bid dosing. Will follow
[2017-10-19 20:04] LABS: Calcium 8.1 mg/dL (8.4-10.2)
[2017-10-19] MEDS: ROBITUSSIN PO PRN (21:07)
[2017-10-20] MEDS: DUONEB *Not for PRN Use IH SCH ×4 (01:30→19:17)
[2017-10-20] MEDS: TESSALON PERLES PO SCH ×4 (02:19→23:57)
[2017-10-20 03:32] LABS: Creatinine,Urine 111.9 mg/dL (0.1-20.0)
[2017-10-20] MEDS: CEPHULAC PO SCH ×3 (05:44→17:13)
[2017-10-20 05:47] LABS: Basophils # (Auto) 0.1 K/mm3 (0.0-0.1); Eosinophils # (Auto) 0.2 K/mm3 (0.0-0.4); Eosinophils % (Auto) 1.6 % (0.0-4.3); Hematocrit 23.4 % (35.5-45.6); Hemoglobin 8.1 gm/dl (11.8-15.2); Lymphocytes # (Auto) 2.1 K/mm3 (1.2-5.4); Lymphocytes % (Auto) 14.2 % (13.4-35.0); Mean Corpuscular HGB Conc 35 % (32-34); Mean Corpuscular Hemoglobin 34 pg (28-32); Mean Corpuscular Volume 96 fl (84-94); Monocytes # (Auto) 1.1 K/mm3 (0.0-0.8); Monocytes % (Auto) 7.4 % (0.0-7.3); Platelet Count 175 K/mm3 (140-440); Red Blood Count 2.43 M/mm3 (3.65-5.03); Red Cell Distribution Width 15.3 % (13.2-15.2)
[2017-10-20 07:22] LABS: INR 1.59 (0.87-1.13)
--- NOTE | 2017-10-20 09:44 | Progress Note ---
Assessment and Plan Severe Jaundice Liver cirrhosis total bilirubin of 18.9 Hypercoagulopathy Acute renal failure Leukocytosis/Hyperkalemia/Hyponatremia Anemia Atypical chest pain Mild elevation of troponin likely in the setting of acute renal failure Plan: Echocardiogram for left ventricular function assessment. Subjective Date of service: 10/20/17 Interval history: Patient is resting in bed comfortably. No cardiac complaints. Family member at bedside. Objective Vital Signs Temp Pulse Pulse Pulse Pulse Resp Resp 10/20/17 07:09 99.0 F 81 18 10/20/17 05:09 98.6 F 85 18 10/20/17 01:30 83 10/19/17 23:21 22 10/19/17 23:17 101.4 F H 80 18 10/19/17 21:23 78 10/19/17 21:21 72 20 10/19/17 20:28 82 10/19/17 20:22 10/19/17 20:18 78 10/19/17 19:28 74 10/19/17 19:27 98.7 F 73 18 10/19/17 17:21 97.9 F 72 18 10/19/17 15:28 10/19/17 15:25 78 10/19/17 15:10 82 10/19/17 12:34 98.3 F 74 18 Resp Resp BP BP Pulse Ox 10/20/17 07:09 103/56 96 10/20/17 05:09 115/56 97 10/20/17 01:30 20 10/19/17 23:21 10/19/17 23:17 116/65 97 10/19/17 21:23 10/19/17 21:21 97 10/19/17 20:28 18 10/19/17 20:22 98 10/19/17 20:18 18 10/19/17 19:28 99 10/19/17 19:27 111/61 99 10/19/17 17:21 107/56 98 10/19/17 15:28 99 10/19/17 15:25 18 10/19/17 15:10 16 10/19/17 12:34 89/51 99 - Physical Examination General: No Apparent Distress HEENT: Positive: Jaundice Cardiac: Positive: Reg Rate and Rhythm Neuro: Positive: Weakness Extremities: Present: edema - Labs and Meds Coagulation 10/20/17 Range/Units 06:53 PT 19.9 H (12.2-14.9) Sec. INR 1.59 H (0.87-1.13) CBC 10/20/17 Range/Units 04:55 WBC 14.6 H (4.5-11.0) K/mm3 RBC 2.43 L (3.65-5.03) M/mm3 Hgb 8.1 L (11.8-15.2) gm/dl Hct 23.4 L (35.5-45.6) % Plt Count 175 (140-440) K/mm3 Lymph # 2.1 (1.2-5.4) K/mm3 [place] # 1.1 H (0.0-0.8) K/mm3 Eos # 0.2 (0.0-0.4) K/mm3 Baso # 0.1 (0.0-0.1) K/mm3 Comprehensive Metabolic Panel 10/19/17 10/20/17 Range/Units 19:19 04:55 Sodium 128 L 133 L (137-145) mmol/L Potassium 5.1 H 5.0 (3.6-5.0) mmol/L Chloride 97.8 L 102.4 (98-107) mmol/L Carbon Dioxide 11 L 13 L (22-30) mmol/L BUN 56 H 58 H (9-20) mg/dL Creatinine 2.3 H 2.4 H (0.8-1.5) mg/dL Glucose 103 H 104 H (75-100) mg/dL Calcium 8.1 L 8.0 L (8.4-10.2) mg/dL
--- NOTE | 2017-10-20 10:00 | Event Note ---
<TYLER NG - Last Filed: 10/20/17 09:59> Date: 10/20/17 Patient off of the floor for echo. Repeat MRCP pending for today. Further GI recommendations to follow based on results. <QUETA STONE - Last Filed: 10/20/17 16:05> Pt seen and examined. Please see separate progress note regarding A/P.
--- NOTE | 2017-10-20 10:35 | Ultrasound Report ---
ULTRASOUND ABDOMEN LIMITED: 10/20/17 10:49:00 CLINICAL: Check for ascites. A paracentesis was ordered. FINDINGS: Ultrasound of the abdomen demonstrated a small volume of ascites limited to the lower abdomen with an inadequate volume for a safe paracentesis.
--- NOTE | 2017-10-20 14:22 | Progress Note ---
Assessment and Plan Alcoholic Liver Cirrhosis with ascites: Jaundice: Abdominal Pain: On lactulose, zofran, rifaximine GI consulted, f/u recs Chest Pain: Cardiology consulted, evaluated pt, no additional cardiac work up needed at this time Acute Kidney Injury possibly secondary to ATN, hypotension, questionable hepatorenal syndrome, possible underlying CKD process: stable Cr and BUN, no indication for WELLNESS SPECIALIST may start Albumin challenge with midorine and octreotide if worsening function Renally dose meds Obtain daily weight Check Renal US Obtain urine lytes Strict intake and output [place] Catheter: No Hyponatremia: secondary to cirrhosis fluid restriction Hyperkalemia: low K diet Subjective Date of service: 10/20/17 Principal diagnosis: ARF Interval history: remains to feel weak Objective - Vital Signs Vital signs: Vital Signs - 12hr 10/20/17 10/20/17 10/20/17 05:09 07:09 07:50 Temperature 98.6 F 99.0 F Pulse Rate 85 81 Pulse Rate [ 81 Bilateral Throughout] Respiratory 18 18 Rate Respiratory 20 Rate [Bilateral Throughout] Blood Pressure 103/56 Blood Pressure 115/56 [Left] O2 Sat by Pulse 97 96 98 Oximetry 10/20/17 10/20/17 08:00 12:14 Temperature 98.3 F Pulse Rate 79 Pulse Rate [ 82 Bilateral Throughout] Respiratory 18 Rate Respiratory 20 Rate [Bilateral Throughout] Blood Pressure Blood Pressure 102/61 [Left] O2 Sat by Pulse 98 Oximetry - General Appearance General appearance: appears stated age EENT: ATNC, PERRL, sclera incterus Neck: no JVD Respiratory: Present: Clear to Ascultation. Absent: Rales, Ronchi Cardiology: regular, S1S2 Gastrointestinal: tenderness, distended Integumentary: no rash, warm and dry Neurologic: no focal deficit, alert and oriented x3 Musculoskeletal: other (1-2+ pitting edema in BLE) Psychiatric: cooperative - Lab 10/20/17 04:55 10/20/17 04:55 Most recent lab results Calcium 8.0 mg/dL (8.4-10.2) L 10/20/17 04:55 Phosphorus 4.20 mg/dL (2.5-4.5) 10/19/17 19:19 Magnesium 2.20 mg/dL (1.7-2.3) 10/19/17 19:19 Urine Creatinine 111.9 mg/dL (0.1-20.0) H 10/20/17 01:44 Urine Sodium 21 mmol/L 10/20/17 01:44
[2017-10-20] MEDS ORDERED: NACL 0.9% 500 ML 500 ML IV SCH (14:52)
[2017-10-20] MEDS: XIFAXAN PO SCH ×2 (15:23→23:57)
[2017-10-20] MEDS: cefTRIAXone 1 GM in NACL 0.9% 20 ML IV SCH (15:24)
--- NOTE | 2017-10-20 15:54 | Progress Note ---
Assessment and Plan Assessment and plan: This is a 57-year-old man was just discharged from the hospital, he was recently diagnosed with cirrhosis, quit alcohol use 20 days ago, to the hospital with right upper quadrant pain and chest pain, he stated he had these symptoms on the last admission and they have not improved. In addition his feet are swollen. He described the chest pain and right upper quadrant pain as a hurting pain, constant, intense in the 6/10, no radiation, he can identify exacerbating or relieving factor. He denies nausea vomiting, shortness of breath, diaphoresis or palpitation. Review of last visit work up showed that pathology indicative of Alcohol liver disease with no malignancy, outpatient GI and oncology eval was recommended. MRCP was also indicative of mild to moderate Ascities and Portal hypertension with esophageal and splenic varices. Patient on returning to the ER this time has noted, and Elevated Renal function, worsening lower ext swelling and elevated Troponin Decompensated Liver disease with Alcholic Cirrhosis and now some ascities KAMILAH possible Hepato-renal syndrome Atypical Chest pain with Presumed Type 2 NE Anemia Secondary HyperCoagulopathy SIRS Secondary to Non infectious etiology. 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 He understands and verbalized understanding of treatment plan. * Discussed in detail with patient and family History Interval history: Patient is seen today for: Decompensated cirrhosis with worsening edema Seen and examined at bedside; 24hour events reviewed; nursing staff ; no adverse overnight events reported to me; Denies any chest pain, nausea, vomiting , diarrhea. Continues with abdominal discomfort. Relates generalized 3/10 intensity No fever noted blood pressure controlled Hospitalist Physical - Physical exam Narrative exam: VITAL SIGNS: Reviewed. GENERAL: The patient appeared well nourished and normally developed. Vital signs as documented. HEAD: No signs of head trauma. EYES: Pupils are equal. Extraocular motions intact. Conjunctivae EARS: Hearing grossly intact. MOUTH: Oropharynx is normal. NECK: No adenopathy, no JVD. CHEST: Chest with clear breath sounds bilaterally. No wheezes, rales, or rhonchi. CARDIAC: Regular rate and rhythm. S1 and S2, without murmurs, gallops, or rubs. VASCULAR: 2+ pitting Edema. Peripheral pulses normal and equal in all extremities. ABDOMEN: Soft, without detectable tenderness. No sign of distention. No rebound or guarding, and no masses palpated. Bowel Sounds normal. MUSCULOSKELETAL: Good range of motion of all major joints. Extremities without clubbing, cyanosis. 2+ pitting edema. NEUROLOGIC EXAM: Alert and oriented x 3. No focal sensory or strength deficits. Speech normal. Follows commands. PSYCHIATRIC: Mood normal. SKIN: Jaundice - Constitutional Vitals: Temp Pulse Resp BP Pulse Ox 98.3 F 76 20 102/61 98 10/20/17 12:14 10/20/17 15:00 10/20/17 13:59 10/20/17 12:14 10/20/17 12:14 General appearance: Present: no acute distress Results - Labs CBC & Chem 7: 10/20/17 04:55 10/20/17 04:55 Labs: Laboratory Last Values WBC 14.6 K/mm3 (4.5-11.0) H 10/20/17 04:55 RBC 2.43 M/mm3 (3.65-5.03) L 10/20/17 04:55 Hgb 8.1 gm/dl (11.8-15.2) L 10/20/17 04:55 Hct 23.4 % (35.5-45.6) L 10/20/17 04:55 MCV 96 fl (84-94) H 10/20/17 04:55 MCH 34 pg (28-32) H 10/20/17 04:55 MCHC 35 % (32-34) H 10/20/17 04:55 RDW 15.3 % (13.2-15.2) H 10/20/17 04:55 Plt Count 175 K/mm3 (140-440) 10/20/17 04:55 Lymph % (Auto) 14.2 % (13.4-35.0) 10/20/17 04:55 [place] % (Auto) 7.4 % (0.0-7.3) H 10/20/17 04:55 Eos % (Auto) 1.6 % (0.0-4.3) 10/20/17 04:55 Baso % (Auto) 1.0 % (0.0-1.8) 10/20/17 04:55 Lymph # 2.1 K/mm3 (1.2-5.4) 10/20/17 04:55 [place] # 1.1 K/mm3 (0.0-0.8) H 10/20/17 04:55 Eos # 0.2 K/mm3 (0.0-0.4) 10/20/17 04:55 Baso # 0.1 K/mm3 (0.0-0.1) 10/20/17 04:55 Seg Neutrophils % 75.8 % (40.0-70.0) H 10/20/17 04:55 Seg Neutrophils # 11.0 K/mm3 (1.8-7.7) H 10/20/17 04:55 PT 19.9 Sec. (12.2-14.9) H 10/20/17 06:53 INR 1.59 (0.87-1.13) H 10/20/17 06:53 APTT 53.0 Sec. (24.2-36.6) H 10/18/17 17:06 Sodium 133 mmol/L (137-145) L 10/20/17 04:55 Potassium 5.0 mmol/L (3.6-5.0) 10/20/17 04:55 Chloride 102.4 mmol/L (98-107) 10/20/17 04:55 Carbon Dioxide 13 mmol/L (22-30) L 10/20/17 04:55 Anion Gap 23 mmol/L 10/20/17 04:55 BUN 58 mg/dL (9-20) H 10/20/17 04:55 Creatinine 2.4 mg/dL (0.8-1.5) H 10/20/17 04:55 Estimated GFR 34 ml/min 10/20/17 04:55 BUN/Creatinine Ratio 24 % 10/20/17 04:55 Glucose 104 mg/dL (75-100) H 10/20/17 04:55 Calcium 8.0 mg/dL (8.4-10.2) L 10/20/17 04:55 Phosphorus 4.20 mg/dL (2.5-4.5) 10/19/17 19:19 Magnesium 2.20 mg/dL (1.7-2.3) 10/19/17 19:19 Total Bilirubin 18.90 mg/dL (0.1-1.2) H 10/18/17 17:06 AST 209 units/L (5-40) H 10/18/17 17:06 ALT 51 units/L (7-56) 10/18/17 17:06 Alkaline Phosphatase 100 units/L (35-129) 10/18/17 17:06 Ammonia 66.0 umol/L (25-60) H 10/19/17 11:10 Troponin T 0.031 ng/mL (0.00-0.029) H D 10/18/17 22:41 Total Protein 8.6 g/dL (6.3-8.2) H 10/18/17 17:06 Albumin 1.8 g/dL (3.9-5) L 10/18/17 17:06 Albumin/Globulin Ratio 0.3 % 10/18/17 17:06 Triglycerides 262 mg/dL (2-149) H 10/18/17 17:06 Cholesterol 117 mg/dL (50-199) 10/18/17 17:06 LDL Cholesterol Direct 14 mg/dL (50-130) L 10/18/17 17:06 HDL Cholesterol 7 mg/dL (40-59) L 10/18/17 17:06 Cholesterol/HDL Ratio 16.71 % 10/18/17 17:06 Lipase 92 units/L (13-60) H 10/18/17 17:06 PTH Intact 48.07 pg/mL (15-65) 10/19/17 19:19 Urine Color Dark yellow (Yellow) 10/18/17 Unknown Urine Turbidity Clear (Clear) 10/18/17 Unknown Urine pH 6.0 (5.0-7.0) 10/18/17 Unknown Ur Specific [place] 1.008 (1.003-1.030) 10/18/17 Unknown Urine Protein <15 mg/dl mg/dL (Negative) 10/18/17 Unknown Urine Glucose (UA) Neg mg/dL (Negative) 10/18/17 Unknown Urine Ketones Neg mg/dL (Negative) 10/18/17 Unknown Urine Blood Sm (Negative) 10/18/17 Unknown Urine Nitrite Neg (Negative) 10/18/17 Unknown Urine Bilirubin Sm (Negative) 10/18/17 Unknown Urine Ictotest Positive (Negative) 10/18/17 Unknown Urine Urobilinogen 2.0 mg/dL (<2.0) 10/18/17 Unknown Ur Leukocyte Esterase Neg (Negative) 10/18/17 Unknown Urine WBC (Auto) 2.0 /HPF (0.0-6.0) 10/18/17 Unknown Urine RBC (Auto) 24.0 /HPF (0.0-6.0) 10/18/17 Unknown Urine Mucus Few /HPF 10/18/17 Unknown Urine Osmolality 330 Mosm/kg 10/20/17 01:44 Urine Creatinine 111.9 mg/dL (0.1-20.0) H 10/20/17 01:44 Urine Microalbumin 13.1 mg/dL (0.1-34.0) 10/20/17 01:44 Microalb/Creat Ratio 117.0 ug/mg 10/20/17 01:44 Urine Sodium 21 mmol/L 10/20/17 01:44 Urine Urea Nitrogen 484 10/20/17 01:44
--- NOTE | 2017-10-20 16:04 | Gastroenterology Progress Note ---
Assessment and Plan 1. Decompensated cirrhosis - cont lactulose (goal of 3 bm's daily, hold dose if having more then this) and xifaxin. no signs of gi bleeding. not a tx candidate given recent alcohol use and possible malignancy (work-up on going) 2. Jaundice/abnormal liver enzymes - pattern of liver enzyme elevation suggestive of alcoholic hepatitis. High DF; will start trental. trend liver enzymes. 3. Liver lesions - MRI pending; prior imaging from last admission reviewed. AFP was normal. however neoplastic process/hcc remains on ddx 4. KAMILAH - management per primary, consider renal consult. consider albumin challenge for possible pre-renal etiology Subjective Date of service: 10/20/17 Principal diagnosis: cirrhosis, jaundice Interval history: pt seen and examined. c/o le swelling/leg pain. awake/alert, family at bedside. answering questions appropriately. Objective - Exam Narrative Exam: Gen: nad, jaundiced, awake/alert Eyes: + icterus CV: RRR Lungs: CTAB Abd: soft, nt, +bs Ext: + edema Neuro: oriented x 3 - Constitutional Vitals: Temp Pulse Resp BP Pulse Ox 98.3 F 76 20 102/61 98 10/20/17 12:14 10/20/17 15:00 10/20/17 13:59 10/20/17 12:14 10/20/17 12:14 - Labs CBC & Chem 7: 10/20/17 04:55 10/20/17 04:55 Labs: Laboratory Results - last 24 hr 10/19/17 10/19/17 10/20/17 19:19 19:19 01:44 WBC RBC Hgb Hct MCV MCH MCHC RDW Plt Count Lymph % (Auto) [place] % (Auto) Eos % (Auto) Baso % (Auto) Lymph # [place] # Eos # Baso # Seg Neutrophils % Seg Neutrophils # PT INR Sodium 128 L Potassium 5.1 H Chloride 97.8 L Carbon Dioxide 11 L Anion Gap 24 BUN 56 H Creatinine 2.3 H Estimated GFR 35 BUN/Creatinine Ratio 24 Glucose 103 H Calcium 8.1 L Phosphorus 4.20 Magnesium 2.20 PTH Intact 48.07 Urine Osmolality 330 Urine Creatinine 111.9 H Urine Microalbumin 13.1 Microalb/Creat Ratio 117.0 Urine Sodium 21 Urine Urea Nitrogen 484 Blood Type 10/20/17 10/20/17 10/20/17 04:55 04:55 06:53 WBC 14.6 H RBC 2.43 L Hgb 8.1 L Hct 23.4 L MCV 96 H MCH 34 H MCHC 35 H RDW 15.3 H Plt Count 175 Lymph % (Auto) 14.2 [place] % (Auto) 7.4 H Eos % (Auto) 1.6 Baso % (Auto) 1.0 Lymph # 2.1 [place] # 1.1 H Eos # 0.2 Baso # 0.1 Seg Neutrophils % 75.8 H Seg Neutrophils # 11.0 H PT 19.9 H INR 1.59 H Sodium 133 L Potassium 5.0 Chloride 102.4 Carbon Dioxide 13 L Anion Gap 23 BUN 58 H Creatinine 2.4 H Estimated GFR 34 BUN/Creatinine Ratio 24 Glucose 104 H Calcium 8.0 L Phosphorus Magnesium PTH Intact Urine Osmolality Urine Creatinine Urine Microalbumin Microalb/Creat Ratio Urine Sodium Urine Urea Nitrogen Blood Type 10/20/17 Unknown WBC RBC Hgb Hct MCV MCH MCHC RDW Plt Count Lymph % (Auto) [place] % (Auto) Eos % (Auto) Baso % (Auto) Lymph # [place] # Eos # Baso # Seg Neutrophils % Seg Neutrophils # PT INR Sodium Potassium Chloride Carbon Dioxide Anion Gap BUN Creatinine Estimated GFR BUN/Creatinine Ratio Glucose Calcium Phosphorus Magnesium PTH Intact Urine Osmolality Urine Creatinine Urine Microalbumin Microalb/Creat Ratio Urine Sodium Urine Urea Nitrogen Blood Type O POSITIVE
[2017-10-20] MEDS: SODIUM CHLORIDE FLUSH SYRINGE 10 ML IV SCH (16:59)
--- NOTE | 2017-10-20 17:52 | Magnetic Resonance Report ---
FINAL REPORT EXAM: MR ABDOMEN MRCP HISTORY: cirrhosis , jaundice, common bile duct dilatation without ultrasound evidence of obstructive lesion TECHNIQUE: Multiplanar multisequence abdomen MR imaging. 2-D and 3-D MRCP reconstructions of the biliary tree. PRIORS: Abdomen ultrasound 10/18/[address] 10/07/2017 FINDINGS: Hepatomegaly with sagittal dimension of 23.2 cm. Patient motion artifact degrades image quality and limits the examination. No visible focal liver lesion. Slight perihepatic and perisplenic ascites. Subtle nodular appearance of the liver capsule may correspond with history of cirrhosis. Intact normal caliber abdominal aorta and IVC. Simple appearing right renal cyst. Otherwise normal-appearing kidneys. No MRI evidence of pancreatic abnormality. Normal-appearing spleen. No intestinal distention. Normal caliber mid and distal common bile duct with 4 mm diameter. No filling defect in visible portion. No intrahepatic biliary distention. The proximal common bile duct is not well visualized and may be incompletely distended or narrowed. No MRI evidence of dee hepatis lesion. Abnormal low signal material is noted in the dependent portion of gallbladder lumen. This is most compatible with sludge. No separately identified gallstone noted. There is nonspecific gallbladder wall thickening and trace pericholecystic fluid. Fluid may be from the perihepatic ascites related to cirrhosis. The differential includes cholecystitis, considered less likely. No gallbladder distention. IMPRESSION: Normal caliber mid and distal common bile duct. Proximal duct not well visualized and may be incompletely distended or narrowed. No MRI evidence of dee hepatis lesion Low signal material suggestive of sludge in dependent gallbladder lumen without definite separate gallstone noted Gallbladder wall thickening and trace pericholecystic fluid may be related to slight upper abdominal ascites. Differential includes cholecystitis, considered less like likely Hepatomegaly without focal liver lesion. Subtle nodular appearance of the liver capsule and slight upper abdominal ascites may correspond with history of cirrhosis
[2017-10-20] MEDS: ROBITUSSIN PO PRN (19:38)
[2017-10-20] MEDS ORDERED: AMBIEN PO PRN (21:17)
[2017-10-20] MEDS: TRENTAL PO SCH (23:57)
[2017-10-21] MEDS: CEPHULAC PO SCH ×4 (02:01→23:40)
[2017-10-21] MEDS: SODIUM CHLORIDE FLUSH SYRINGE 10 ML IV SCH ×3 (02:01→23:30)
[2017-10-21] MEDS: DUONEB *Not for PRN Use IH SCH ×4 (02:27→20:19)
[2017-10-21 05:43] LABS: Hematocrit 22.2 % (35.5-45.6); Hemoglobin 7.7 gm/dl (11.8-15.2); Mean Corpuscular HGB Conc 35 % (32-34); Mean Corpuscular Hemoglobin 33 pg (28-32); Mean Corpuscular Volume 95 fl (84-94); Platelet Count 166 K/mm3 (140-440); Red Blood Count 2.33 M/mm3 (3.65-5.03); Red Cell Distribution Width 15.2 % (13.2-15.2)
[2017-10-21 05:53] LABS: INR 1.5 (0.87-1.13)
[2017-10-21 06:06] LABS: Albumin 1.9 g/dL (3.9-5)
[2017-10-21] MEDS: TESSALON PERLES PO SCH ×3 (07:26→23:40)
[2017-10-21] MEDS: TRENTAL PO SCH ×3 (07:26→23:40)
[2017-10-21] MEDS ORDERED: VITAMIN K *ORAL LIQUID PO ONE (08:00)
--- NOTE | 2017-10-21 08:02 | Progress Note ---
Assessment and Plan Assessment and plan: This is a 57-year-old man was just discharged from the hospital, he was recently diagnosed with cirrhosis, quit alcohol use 20 days ago, to the hospital with right upper quadrant pain and chest pain, he stated he had these symptoms on the last admission and they have not improved. In addition his feet are swollen. He described the chest pain and right upper quadrant pain as a hurting pain, constant, intense in the 6/10, no radiation, he can identify exacerbating or relieving factor. He denies nausea vomiting, shortness of breath, diaphoresis or palpitation. Review of last visit work up showed that pathology indicative of Alcohol liver disease with no malignancy, outpatient GI and oncology eval was recommended. MRCP was also indicative of mild to moderate Ascities and Portal hypertension with esophageal and splenic varices. Patient on returning to the ER this time has noted, and Elevated Renal function, worsening lower ext swelling and elevated Troponin Decompensated Liver disease with Alcholic Cirrhosis and now some ascities KAMILAH possible Hepato-renal syndrome Atypical Chest pain with Presumed Type 2 LA Anemia Secondary HyperCoagulopathy SIRS Secondary to Non infectious etiology. 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 He understands and verbalized understanding of treatment plan. * Discussed in detail with patient and family History Interval history: Patient is seen today for: Decompensated cirrhosis with worsening edema Seen and examined at bedside; 24hour events reviewed; nursing staff ; no adverse overnight events reported to me; Denies any chest pain. still very lathergic,nausea, No vomiting, diarrhea.Still with increasing abdominal girth Continues with abdominal discomfort. Relates generalized 3/10 intensity No fever noted blood pressure controlled Hospitalist Physical - Physical exam Narrative exam: VITAL SIGNS: Reviewed. GENERAL: The patient appeared chronically ill and lathergic Vital signs as documented. HEAD: No signs of head trauma. EYES: Pupils are equal. Extraocular motions intact. Conjunctivae EARS: Hearing grossly intact. MOUTH: Oropharynx is normal. NECK: No adenopathy, no JVD. CHEST: Chest with clear breath sounds bilaterally. No wheezes, rales, or rhonchi. CARDIAC: Regular rate and rhythm. S1 and S2, without murmurs, gallops, or rubs. VASCULAR: 2+ pitting Edema. Peripheral pulses normal and equal in all extremities. ABDOMEN: Soft, without detectable tenderness. No sign of distention. No rebound or guarding, and no masses palpated. Bowel Sounds normal. MUSCULOSKELETAL: Good range of motion of all major joints. Extremities without clubbing, cyanosis. 2+ pitting edema. NEUROLOGIC EXAM: Alert and oriented x 3. No focal sensory or strength deficits. Speech normal. Follows commands. PSYCHIATRIC: Mood normal. SKIN: Jaundice - Constitutional Vitals: Temp Pulse Resp BP Pulse Ox 99.3 F 86 18 112/62 96 10/21/17 07:00 10/21/17 07:48 10/21/17 07:48 10/21/17 07:00 10/21/17 07:48 General appearance: Present: no acute distress Results - Labs CBC & Chem 7: 10/21/17 05:22 10/21/17 05:22 Labs: Laboratory Last Values WBC 15.1 K/mm3 (4.5-11.0) H 10/21/17 05:22 RBC 2.33 M/mm3 (3.65-5.03) L 10/21/17 05:22 Hgb 7.7 gm/dl (11.8-15.2) L 10/21/17 05:22 Hct 22.2 % (35.5-45.6) L 10/21/17 05:22 MCV 95 fl (84-94) H 10/21/17 05:22 MCH 33 pg (28-32) H 10/21/17 05:22 MCHC 35 % (32-34) H 10/21/17 05:22 RDW 15.2 % (13.2-15.2) 10/21/17 05:22 Plt Count 166 K/mm3 (140-440) 10/21/17 05:22 Lymph % (Auto) 14.2 % (13.4-35.0) 10/20/17 04:55 [place] % (Auto) 7.4 % (0.0-7.3) H 10/20/17 04:55 Eos % (Auto) 1.6 % (0.0-4.3) 10/20/17 04:55 Baso % (Auto) 1.0 % (0.0-1.8) 10/20/17 04:55 Lymph # 2.1 K/mm3 (1.2-5.4) 10/20/17 04:55 [place] # 1.1 K/mm3 (0.0-0.8) H 10/20/17 04:55 Eos # 0.2 K/mm3 (0.0-0.4) 10/20/17 04:55 Baso # 0.1 K/mm3 (0.0-0.1) 10/20/17 04:55 Seg Neutrophils % 75.8 % (40.0-70.0) H 10/20/17 04:55 Seg Neutrophils # 11.0 K/mm3 (1.8-7.7) H 10/20/17 04:55 PT 19.0 Sec. (12.2-14.9) H 10/21/17 05:22 INR 1.50 (0.87-1.13) H 10/21/17 05:22 APTT 53.0 Sec. (24.2-36.6) H 10/18/17 17:06 Sodium 130 mmol/L (137-145) L 10/21/17 05:22 Potassium 4.7 mmol/L (3.6-5.0) 10/21/17 05:22 Chloride 99.8 mmol/L (98-107) 10/21/17 05:22 Carbon Dioxide 13 mmol/L (22-30) L 10/21/17 05:22 Anion Gap 22 mmol/L 10/21/17 05:22 BUN 54 mg/dL (9-20) H 10/21/17 05:22 Creatinine 2.1 mg/dL (0.8-1.5) H 10/21/17 05:22 Estimated GFR 39 ml/min 10/21/17 05:22 BUN/Creatinine Ratio 26 % 10/21/17 05:22 Glucose 110 mg/dL (75-100) H 10/21/17 05:22 Calcium 8.0 mg/dL (8.4-10.2) L 10/21/17 05:22 Phosphorus 4.20 mg/dL (2.5-4.5) 10/19/17 19:19 Magnesium 2.20 mg/dL (1.7-2.3) 10/19/17 19:19 Total Bilirubin 18.40 mg/dL (0.1-1.2) H 10/21/17 05:22 AST 192 units/L (5-40) H 10/21/17 05:22 ALT 55 units/L (7-56) 10/21/17 05:22 Alkaline Phosphatase 94 units/L (35-129) 10/21/17 05:22 Ammonia 66.0 umol/L (25-60) H 10/19/17 11:10 Troponin T 0.031 ng/mL (0.00-0.029) H D 10/18/17 22:41 Total Protein 7.8 g/dL (6.3-8.2) 10/21/17 05:22 Albumin 1.9 g/dL (3.9-5) L 10/21/17 05:22 Albumin/Globulin Ratio 0.3 % 10/21/17 05:22 Triglycerides 262 mg/dL (2-149) H 10/18/17 17:06 Cholesterol 117 mg/dL (50-199) 10/18/17 17:06 LDL Cholesterol Direct 14 mg/dL (50-130) L 10/18/17 17:06 HDL Cholesterol 7 mg/dL (40-59) L 10/18/17 17:06 Cholesterol/HDL Ratio 16.71 % 10/18/17 17:06 Lipase 92 units/L (13-60) H 10/18/17 17:06 PTH Intact 48.07 pg/mL (15-65) 10/19/17 19:19 Urine Color Dark yellow (Yellow) 10/18/17 Unknown Urine Turbidity Clear (Clear) 10/18/17 Unknown Urine pH 6.0 (5.0-7.0) 10/18/17 Unknown Ur Specific [place] 1.008 (1.003-1.030) 10/18/17 Unknown Urine Protein <15 mg/dl mg/dL (Negative) 10/18/17 Unknown Urine Glucose (UA) Neg mg/dL (Negative) 10/18/17 Unknown Urine Ketones Neg mg/dL (Negative) 10/18/17 Unknown Urine Blood Sm (Negative) 10/18/17 Unknown Urine Nitrite Neg (Negative) 10/18/17 Unknown Urine Bilirubin Sm (Negative) 10/18/17 Unknown Urine Ictotest Positive (Negative) 10/18/17 Unknown Urine Urobilinogen 2.0 mg/dL (<2.0) 10/18/17 Unknown Ur Leukocyte Esterase Neg (Negative) 10/18/17 Unknown Urine WBC (Auto) 2.0 /HPF (0.0-6.0) 10/18/17 Unknown Urine RBC (Auto) 24.0 /HPF (0.0-6.0) 10/18/17 Unknown Urine Mucus Few /HPF 10/18/17 Unknown Urine Osmolality 330 Mosm/kg 10/20/17 01:44 Urine Creatinine 111.9 mg/dL (0.1-20.0) H 10/20/17 01:44 Urine Microalbumin 13.1 mg/dL (0.1-34.0) 10/20/17 01:44 Microalb/Creat Ratio 117.0 ug/mg 10/20/17 01:44 Urine Sodium 21 mmol/L 10/20/17 01:44 Urine Urea Nitrogen 484 10/20/17 01:44 Blood Type O POSITIVE 10/20/17 Unknown
--- NOTE | 2017-10-21 09:17 | Gastroenterology Progress Note ---
Assessment and Plan - Patient Problems (1) Hepatic encephalopathy Current Visit: Yes Status: Acute Plan to address problem: Improving. Will reduce Lactulose.Will d/c morphine. Would avoid any sedatives/ narcotics in this setting. (2) Cirrhosis Current Visit: Yes Status: Acute Qualifiers: Hepatic cirrhosis type: alcoholic cirrhosis Ascites presence: unspecified Qualified Code(s): K70.30 - Alcoholic cirrhosis of liver without ascites Plan to address problem: Advanced disease due to ETOH. Guarded prognosis. MRI was of suboptimal quality as I discussed with patient and , but no gross pathology. Repeat MRI in the next 1-2 months to re evaluate with less motion artifact is recommended. (3) Liver masses Current Visit: Yes Status: Acute (4) EtOH dependence Current Visit: No Status: Chronic Qualifiers: Substance use status: uncomplicated Qualified Code(s): F10.20 - Alcohol dependence, uncomplicated Subjective Date of service: 10/21/17 Principal diagnosis: cirrhosis, jaundice Interval history: Reports excessive diarrhea due to lactulose. Objective - Constitutional Vitals: Temp Pulse Resp BP Pulse Ox 99.3 F 86 18 112/62 96 10/21/17 07:00 10/21/17 08:00 10/21/17 08:00 10/21/17 07:00 10/21/17 07:48 General appearance: no acute distress, obese - EENT Eyes: scleral icterus ENT: hearing intact, clear oral mucosa - Neck Neck: supple, normal ROM - Respiratory Respiratory effort: normal Respiratory: bilateral: CTA - Cardiovascular Rhythm: regular - Extremities Extremities: pulses intact, normal color, Full ROM Extremity abnormal: edema - Gastrointestinal General gastrointestinal: Present: soft, non-tender, non-distended, normal bowel sounds. Absent: mass Rectal Exam: deferred - Integumentary Integumentary: Present: clear, warm, dry - Neurologic Neurological: alert and oriented x3 - Labs CBC & Chem 7: 10/21/17 05:22 10/21/17 05:22 Labs: Laboratory Results - last 24 hr 10/20/17 10/21/17 10/21/17 Unknown 05:22 05:22 WBC 15.1 H RBC 2.33 L Hgb 7.7 L Hct 22.2 L MCV 95 H MCH 33 H MCHC 35 H RDW 15.2 Plt Count 166 PT INR Sodium 130 L Potassium 4.7 Chloride 99.8 Carbon Dioxide 13 L Anion Gap 22 BUN 54 H Creatinine 2.1 H Estimated GFR 39 BUN/Creatinine Ratio 26 Glucose 110 H Calcium 8.0 L Total Bilirubin 18.40 H AST 192 H ALT 55 Alkaline Phosphatase 94 Total Protein 7.8 Albumin 1.9 L Albumin/Globulin Ratio 0.3 Blood Type O POSITIVE 10/21/17 05:22 WBC RBC Hgb Hct MCV MCH MCHC RDW Plt Count PT 19.0 H INR 1.50 H Sodium Potassium Chloride Carbon Dioxide Anion Gap BUN Creatinine Estimated GFR BUN/Creatinine Ratio Glucose Calcium Total Bilirubin AST ALT Alkaline Phosphatase Total Protein Albumin Albumin/Globulin Ratio Blood Type
[2017-10-21] MEDS: cefTRIAXone 1 GM in NACL 0.9% 20 ML IV SCH (10:54)
[2017-10-21] MEDS: XIFAXAN PO SCH ×2 (10:55→23:40)
--- NOTE | 2017-10-21 11:08 | Progress Note ---
Assessment and Plan - Patient Problems (1) Hyponatremia Current Visit: Yes Status: Acute (2) Acute kidney injury Current Visit: Yes Status: Acute (3) Cirrhosis Current Visit: Yes Status: Acute Qualifiers: Hepatic cirrhosis type: alcoholic cirrhosis Ascites presence: unspecified Qualified Code(s): K70.30 - Alcoholic cirrhosis of liver without ascites (4) Hepatic encephalopathy Current Visit: Yes Status: Acute (5) Hyperbilirubinemia Current Visit: Yes Status: Acute Subjective Date of service: 10/21/17 Principal diagnosis: cirrhosis, jaundice Interval history: NO CV C\O Objective Vital Signs Temp Pulse Pulse Resp Resp BP BP 10/21/17 08:00 86 18 10/21/17 07:48 86 18 10/21/17 07:00 99.3 F 86 26 H 112/62 10/21/17 02:46 86 18 10/21/17 02:31 87 20 10/20/17 22:26 98.2 F 87 18 112/55 10/20/17 22:00 18 10/20/17 20:45 86 122/65 10/20/17 20:30 99.5 F 87 16 122/65 10/20/17 19:32 93 H 18 10/20/17 19:24 10/20/17 19:17 81 18 10/20/17 18:53 99.1 F 82 16 122/65 10/20/17 18:23 98.7 F 85 18 117/66 10/20/17 17:53 98.6 F 80 18 109/68 10/20/17 17:38 98.5 F 80 18 106/62 10/20/17 17:35 98.8 F 80 18 106/62 10/20/17 16:31 99.1 F 83 24 114/61 10/20/17 15:43 98.5 F 80 18 106/63 10/20/17 15:00 76 10/20/17 13:59 78 20 10/20/17 13:49 80 18 10/20/17 12:14 98.3 F 79 18 102/61 Pulse Ox 10/21/17 08:00 10/21/17 07:48 96 10/21/17 07:00 96 10/21/17 02:46 10/21/17 02:31 10/20/17 22:26 99 10/20/17 22:00 10/20/17 20:45 98 10/20/17 20:30 96 10/20/17 19:32 10/20/17 19:24 97 10/20/17 19:17 10/20/17 18:53 94 10/20/17 18:23 99 10/20/17 17:53 98 10/20/17 17:38 96 10/20/17 17:35 96 10/20/17 16:31 95 10/20/17 15:43 98 10/20/17 15:00 10/20/17 13:59 10/20/17 13:49 10/20/17 12:14 98 - Physical Examination General: No Apparent Distress, Other (SOMNULENT) HEENT: Positive: Jaundice Neck: Positive: neck supple Cardiac: Positive: Reg Rate and Rhythm Lungs: Positive: clear to auscultation Neuro: Positive: Weakness Abdomen: Positive: Ascites, Distended Extremities: Present: edema (MILD) - Labs and Meds Cardiac Enzymes 10/21/17 Range/Units 05:22 AST 192 H (5-40) units/L Coagulation 10/21/17 Range/Units 05:22 PT 19.0 H (12.2-14.9) Sec. INR 1.50 H (0.87-1.13) CBC 10/21/17 Range/Units 05:22 WBC 15.1 H (4.5-11.0) K/mm3 RBC 2.33 L (3.65-5.03) M/mm3 Hgb 7.7 L (11.8-15.2) gm/dl Hct 22.2 L (35.5-45.6) % Plt Count 166 (140-440) K/mm3 Comprehensive Metabolic Panel 10/21/17 Range/Units 05:22 Sodium 130 L (137-145) mmol/L Potassium 4.7 (3.6-5.0) mmol/L Chloride 99.8 (98-107) mmol/L Carbon Dioxide 13 L (22-30) mmol/L BUN 54 H (9-20) mg/dL Creatinine 2.1 H (0.8-1.5) mg/dL Glucose 110 H (75-100) mg/dL Calcium 8.0 L (8.4-10.2) mg/dL AST 192 H (5-40) units/L ALT 55 (7-56) units/L Alkaline Phosphatase 94 (35-129) units/L Total Protein 7.8 (6.3-8.2) g/dL Albumin 1.9 L (3.9-5) g/dL
--- NOTE | 2017-10-21 14:17 | Progress Note ---
Assessment and Plan Alcoholic Liver Cirrhosis with ascites: Jaundice: Abdominal Pain: On lactulose, zofran, rifaximine GI consulted, f/u recs Chest Pain: Cardiology consulted, evaluated pt, no additional cardiac work up needed at this time Acute Kidney Injury possibly secondary to ATN, hypotension, questionable hepatorenal syndrome, possible underlying CKD process: Cr slightly down. Start albumin challenge 25% 100 mls q8h X 6 doses. Renally dose meds Obtain daily weight Check Renal US Obtain urine lytes Strict intake and output [place] Catheter: No Hyponatremia: secondary to cirrhosis fluid restriction Hyperkalemia: low K diet Plan d/w Family at bedside. Dave Simms MD [phone] Subjective Date of service: 10/21/17 Principal diagnosis: cirrhosis, jaundice Interval history: Denies CP, SHOB. Family at bedside. Objective - Exam Narrative Exam: General appearance: AAOX3 EENT: ATNC, PERRL, sclera icterus Neck: no JVD Respiratory: Coarse BS BL Cardiology: regular, S1S2 Gastrointestinal: tenderness, distended Integumentary: no rash, warm and dry Neurologic: no focal deficit, alert and oriented x3 Musculoskeletal: other (1-2+ pitting edema in BLE) Psychiatric: cooperative - Vital Signs Vital signs: Vital Signs - 12hr 10/21/17 10/21/17 10/21/17 02:31 02:46 07:00 Temperature 99.3 F Pulse Rate 86 Pulse Rate [ 87 86 Bilateral Throughout] Respiratory 26 H Rate Respiratory 20 18 Rate [Bilateral Throughout] Blood Pressure 112/62 [Left] O2 Sat by Pulse 96 Oximetry 10/21/17 10/21/17 10/21/17 07:48 08:00 14:13 Temperature Pulse Rate Pulse Rate [ 86 86 83 Bilateral Throughout] Respiratory Rate Respiratory 18 18 18 Rate [Bilateral Throughout] Blood Pressure [Left] O2 Sat by Pulse 96 Oximetry - Lab 10/21/17 05:22 10/21/17 05:22 Most recent lab results Calcium 8.0 mg/dL (8.4-10.2) L 10/21/17 05:22 Phosphorus 4.20 mg/dL (2.5-4.5) 10/19/17 19:19 Magnesium 2.20 mg/dL (1.7-2.3) 10/19/17 19:19 Urine Creatinine 111.9 mg/dL (0.1-20.0) H 10/20/17 01:44 Urine Sodium 21 mmol/L 10/20/17 01:44
[2017-10-21] MEDS: ALBURX 25% (ALBUMIN) IV SCH (15:10)
[2017-10-22] MEDS: ALBURX 25% (ALBUMIN) IV SCH ×3 (00:55→15:26)
[2017-10-22] MEDS ORDERED: HYDROCORTISONE CR TP PRN (04:25)
[2017-10-22 07:14] LABS: Hematocrit 21.6 % (35.5-45.6); Hemoglobin 7.5 gm/dl (11.8-15.2); Mean Corpuscular HGB Conc 35 % (32-34); Mean Corpuscular Hemoglobin 33 pg (28-32); Mean Corpuscular Volume 96 fl (84-94); Platelet Count 166 K/mm3 (140-440); Red Blood Count 2.26 M/mm3 (3.65-5.03); Red Cell Distribution Width 15.3 % (13.2-15.2)
[2017-10-22 07:26] LABS: INR 1.54 (0.87-1.13)
[2017-10-22] MEDS: DUONEB *Not for PRN Use IH SCH ×3 (07:36→20:54)
[2017-10-22 07:42] LABS: Albumin 2.3 g/dL (3.9-5); Calcium 8.3 mg/dL (8.4-10.2)
[2017-10-22] MEDS: TRENTAL PO SCH ×3 (07:54→23:32)
[2017-10-22] MEDS: TESSALON PERLES PO SCH ×3 (07:54→23:32)
--- NOTE | 2017-10-22 09:39 | Gastroenterology Progress Note ---
Assessment and Plan - Patient Problems (1) Hepatic encephalopathy Current Visit: Yes Status: Acute Plan to address problem: Clinically he may be at baseline. Will hold lactulose today and continue Xifaxan. I discussed the likely poor prognosis with the family at bedside. At best he may have ETOH hepatitis, which might improve over time with complete abstinence. A recovery program upon discharge was strongly advised. The patient verbalized understanding. The patient will continue pentoxyphylline for ETOH hepatitis. (2) Cirrhosis Current Visit: Yes Status: Acute Qualifiers: Hepatic cirrhosis type: alcoholic cirrhosis Ascites presence: unspecified Qualified Code(s): K70.30 - Alcoholic cirrhosis of liver without ascites Plan to address problem: Advanced. Labs unchanged. (3) Liver masses Current Visit: Yes Status: Acute (4) EtOH dependence Current Visit: No Status: Chronic Qualifiers: Substance use status: uncomplicated Qualified Code(s): F10.20 - Alcohol dependence, uncomplicated Subjective Date of service: 10/22/17 Principal diagnosis: cirrhosis, jaundice Interval history: The patient reports a lot of diarrhea still. Objective - Constitutional Vitals: Temp Pulse Resp BP Pulse Ox 99.6 F 95 H 18 126/63 97 10/22/17 09:00 10/22/17 09:00 10/22/17 09:00 10/22/17 09:00 10/22/17 07:57 General appearance: no acute distress, disheveled - EENT Eyes: scleral icterus ENT: hearing intact - Neck Neck: supple, normal ROM - Respiratory Respiratory effort: normal Respiratory: bilateral: CTA - Cardiovascular Rhythm: regular - Extremities Extremities: pulses intact, No edema, normal color, Full ROM - Gastrointestinal General gastrointestinal: Present: soft, non-tender, non-distended, normal bowel sounds - Neurologic Neurological: alert and oriented x3 - Psychiatric Psychiatric: no intact judgment & insight - Labs CBC & Chem 7: 10/22/17 06:17 10/22/17 06:17 Labs: Laboratory Results - last 24 hr 10/22/17 10/22/17 10/22/17 06:17 06:17 06:17 WBC 14.1 H RBC 2.26 L Hgb 7.5 L Hct 21.6 L MCV 96 H MCH 33 H MCHC 35 H RDW 15.3 H Plt Count 166 PT 19.4 H INR 1.54 H Sodium 134 L Potassium 4.4 Chloride 103.0 Carbon Dioxide 13 L Anion Gap 22 BUN 47 H Creatinine 1.9 H Estimated GFR 44 BUN/Creatinine Ratio 25 Glucose 106 H Calcium 8.3 L Total Bilirubin 19.40 H AST 152 H ALT 53 Alkaline Phosphatase 85 Total Protein 8.0 Albumin 2.3 L Albumin/Globulin Ratio 0.4
[2017-10-22] MEDS: XIFAXAN PO SCH ×2 (09:57→23:32)
[2017-10-22] MEDS: ROBITUSSIN PO PRN (09:58)
--- NOTE | 2017-10-22 11:00 | Progress Note ---
Assessment and Plan Alcoholic Liver Cirrhosis with ascites: Jaundice: Abdominal Pain: On lactulose, zofran, rifaximine GI consulted, f/u recs Chest Pain: Per Cards Acute Kidney Injury possibly secondary to ATN, hypotension, questionable hepatorenal syndrome, possible underlying CKD process: Metabolic acidosis: Hypocalcemia: Cr trending down with albumin challenge 25% 100 mls q8h X 6 doses. Renally dose meds Obtain daily weight Check Renal US Obtain urine lytes Strict intake and output Bicarb trending down. Start NaHCO3 650 mg TID tabs Ca corrected in the setting of Low albumin Hyponatremia, Hyponatremia: secondary to cirrhosis fluid restriction, improving Hyperkalemia: low K diet Plan d/w Family at bedside. Dave Simms MD [phone] Subjective Date of service: 10/22/17 Principal diagnosis: cirrhosis, jaundice Interval history: No acute events overnight. Objective - Exam Narrative Exam: General appearance: AAOX3 EENT: ATNC, PERRL, sclera icterus Neck: no JVD Respiratory: Coarse BS BL Cardiology: regular, S1S2 Gastrointestinal: tenderness, distended Integumentary: no rash, warm and dry Neurologic: no focal deficit, alert and oriented x3 Musculoskeletal: other (1-2+ pitting edema in BLE) Psychiatric: cooperative - Vital Signs Vital signs: Vital Signs - 12hr 10/21/17 10/22/17 10/22/17 23:38 01:05 07:36 Temperature 98.5 F 98.5 F Pulse Rate 92 H 92 H Pulse Rate [ Bilateral Throughout] Respiratory 18 18 Rate Respiratory Rate [Bilateral Throughout] Blood Pressure 114/58 114/58 O2 Sat by Pulse 98 98 Oximetry 10/22/17 10/22/17 10/22/17 07:37 07:57 09:00 Temperature 99.6 F 99.6 F Pulse Rate 95 H 95 H Pulse Rate [ 94 H Bilateral Throughout] Respiratory 28 H 18 Rate Respiratory 17 Rate [Bilateral Throughout] Blood Pressure 125/63 126/63 O2 Sat by Pulse 97 Oximetry - Lab 10/22/17 06:17 10/22/17 06:17 Most recent lab results Calcium 8.3 mg/dL (8.4-10.2) L 10/22/17 06:17 Phosphorus 4.20 mg/dL (2.5-4.5) 10/19/17 19:19 Magnesium 2.20 mg/dL (1.7-2.3) 10/19/17 19:19 Urine Creatinine 111.9 mg/dL (0.1-20.0) H 10/20/17 01:44 Urine Sodium 21 mmol/L 10/20/17 01:44
--- NOTE | 2017-10-22 11:48 | Progress Note ---
Assessment and Plan - Patient Problems (1) Hyponatremia Current Visit: Yes Status: Acute (2) Acute kidney injury Current Visit: Yes Status: Acute (3) Cirrhosis Current Visit: Yes Status: Acute Qualifiers: Hepatic cirrhosis type: alcoholic cirrhosis Ascites presence: unspecified Qualified Code(s): K70.30 - Alcoholic cirrhosis of liver without ascites (4) Hepatic encephalopathy Current Visit: Yes Status: Acute (5) Hyperbilirubinemia Current Visit: Yes Status: Acute Subjective Date of service: 10/22/17 Principal diagnosis: cirrhosis, jaundice Interval history: NO CV C\O Objective Vital Signs Temp Pulse Pulse Resp Resp BP BP 10/22/17 09:00 99.6 F 95 H 18 126/63 10/22/17 07:57 99.6 F 95 H 28 H 125/63 10/22/17 07:37 94 H 17 10/22/17 07:36 10/22/17 01:05 98.5 F 92 H 18 114/58 10/21/17 23:38 98.5 F 92 H 18 114/58 10/21/17 22:00 18 10/21/17 20:35 91 H 20 10/21/17 20:23 10/21/17 20:22 89 20 10/21/17 16:02 10/21/17 15:52 99.0 F 84 20 120/66 10/21/17 15:09 82 121/65 10/21/17 14:21 83 18 10/21/17 14:13 83 18 Pulse Ox 10/22/17 09:00 10/22/17 07:57 97 10/22/17 07:37 10/22/17 07:36 98 10/22/17 01:05 10/21/17 23:38 98 10/21/17 22:00 10/21/17 20:35 10/21/17 20:23 97 10/21/17 20:22 10/21/17 16:02 96 10/21/17 15:52 99 10/21/17 15:09 10/21/17 14:21 10/21/17 14:13 - Physical Examination General: No Apparent Distress, Other (SOMNULENT) HEENT: Positive: Jaundice Neck: Positive: neck supple Cardiac: Positive: Reg Rate and Rhythm Lungs: Positive: clear to auscultation Neuro: Positive: Grossly Intact, Weakness Abdomen: Positive: Ascites, Distended Extremities: Present: edema (MILD) - Labs and Meds Cardiac Enzymes 10/22/17 Range/Units 06:17 AST 152 H (5-40) units/L Coagulation 10/22/17 Range/Units 06:17 PT 19.4 H (12.2-14.9) Sec. INR 1.54 H (0.87-1.13) CBC 10/22/17 Range/Units 06:17 WBC 14.1 H (4.5-11.0) K/mm3 RBC 2.26 L (3.65-5.03) M/mm3 Hgb 7.5 L (11.8-15.2) gm/dl Hct 21.6 L (35.5-45.6) % Plt Count 166 (140-440) K/mm3 Comprehensive Metabolic Panel 10/22/17 Range/Units 06:17 Sodium 134 L (137-145) mmol/L Potassium 4.4 (3.6-5.0) mmol/L Chloride 103.0 (98-107) mmol/L Carbon Dioxide 13 L (22-30) mmol/L BUN 47 H (9-20) mg/dL Creatinine 1.9 H (0.8-1.5) mg/dL Glucose 106 H (75-100) mg/dL Calcium 8.3 L (8.4-10.2) mg/dL AST 152 H (5-40) units/L ALT 53 (7-56) units/L Alkaline Phosphatase 85 (35-129) units/L Total Protein 8.0 (6.3-8.2) g/dL Albumin 2.3 L (3.9-5) g/dL
[2017-10-22] MEDS ORDERED: NACL 0.9% 500 ML 500 ML IV SCH (12:20)
--- NOTE | 2017-10-22 12:22 | Progress Note ---
Assessment and Plan Assessment and plan: This is a 57-year-old man was just discharged from the hospital, he was recently diagnosed with cirrhosis, quit alcohol use 20 days ago, to the hospital with right upper quadrant pain and chest pain, he stated he had these symptoms on the last admission and they have not improved. In addition his feet are swollen. He described the chest pain and right upper quadrant pain as a hurting pain, constant, intense in the 6/10, no radiation, he can identify exacerbating or relieving factor. He denies nausea vomiting, shortness of breath, diaphoresis or palpitation. Review of last visit work up showed that pathology indicative of Alcohol liver disease with no malignancy, outpatient GI and oncology eval was recommended. MRCP was also indicative of mild to moderate Ascities and Portal hypertension with esophageal and splenic varices. Patient on returning to the ER this time has noted, and Elevated Renal function, worsening lower ext swelling and elevated Troponin Decompensated Liver disease with Alcholic Cirrhosis and now some ascities KAMILAH possible Hepato-renal syndrome Atypical Chest pain with Presumed Type 2 IA Anemia Secondary HyperCoagulopathy SIRS Secondary to Non infectious etiology. 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 He understands and verbalized understanding of treatment plan. * Discussed in detail with patient and family History Interval history: Patient is seen today for: Decompensated cirrhosis with worsening edema Seen and examined at bedside; 24hour events reviewed; nursing staff ; no adverse overnight events reported to me; Denies any chest pain. still very lathergic,nausea, No vomiting, diarrhea.Still with increasing abdominal girth Continues with abdominal discomfort. Relates generalized 3/10 intensity No fever noted blood pressure controlled Hospitalist Physical - Physical exam Narrative exam: VITAL SIGNS: Reviewed. GENERAL: The patient appeared chronically ill and lathergic Vital signs as documented. HEAD: No signs of head trauma. EYES: Pupils are equal. Extraocular motions intact. Conjunctivae EARS: Hearing grossly intact. MOUTH: Oropharynx is normal. NECK: No adenopathy, no JVD. CHEST: Chest with clear breath sounds bilaterally. No wheezes, rales, or rhonchi. CARDIAC: Regular rate and rhythm. S1 and S2, without murmurs, gallops, or rubs. VASCULAR: 2+ pitting Edema. Peripheral pulses normal and equal in all extremities. ABDOMEN: Soft, without detectable tenderness. No sign of distention. No rebound or guarding, and no masses palpated. Bowel Sounds normal. MUSCULOSKELETAL: Good range of motion of all major joints. Extremities without clubbing, cyanosis. 2+ pitting edema. NEUROLOGIC EXAM: Alert and oriented x 3. No focal sensory or strength deficits. Speech normal. Follows commands. PSYCHIATRIC: Mood normal. SKIN: Jaundice - Constitutional Vitals: Temp Pulse Resp BP Pulse Ox 99.6 F 95 H 18 126/63 97 10/22/17 09:00 10/22/17 09:00 10/22/17 09:00 10/22/17 09:00 10/22/17 07:57 General appearance: Present: no acute distress Results - Labs CBC & Chem 7: 10/23/17 05:34 10/23/17 05:34 Labs: Laboratory Last Values WBC 14.1 K/mm3 (4.5-11.0) H 10/22/17 06:17 RBC 2.26 M/mm3 (3.65-5.03) L 10/22/17 06:17 Hgb 7.5 gm/dl (11.8-15.2) L 10/22/17 06:17 Hct 21.6 % (35.5-45.6) L 10/22/17 06:17 MCV 96 fl (84-94) H 10/22/17 06:17 MCH 33 pg (28-32) H 10/22/17 06:17 MCHC 35 % (32-34) H 10/22/17 06:17 RDW 15.3 % (13.2-15.2) H 10/22/17 06:17 Plt Count 166 K/mm3 (140-440) 10/22/17 06:17 Lymph % (Auto) 14.2 % (13.4-35.0) 10/20/17 04:55 [place] % (Auto) 7.4 % (0.0-7.3) H 10/20/17 04:55 Eos % (Auto) 1.6 % (0.0-4.3) 10/20/17 04:55 Baso % (Auto) 1.0 % (0.0-1.8) 10/20/17 04:55 Lymph # 2.1 K/mm3 (1.2-5.4) 10/20/17 04:55 [place] # 1.1 K/mm3 (0.0-0.8) H 10/20/17 04:55 Eos # 0.2 K/mm3 (0.0-0.4) 10/20/17 04:55 Baso # 0.1 K/mm3 (0.0-0.1) 10/20/17 04:55 Seg Neutrophils % 75.8 % (40.0-70.0) H 10/20/17 04:55 Seg Neutrophils # 11.0 K/mm3 (1.8-7.7) H 10/20/17 04:55 PT 19.4 Sec. (12.2-14.9) H 10/22/17 06:17 INR 1.54 (0.87-1.13) H 10/22/17 06:17 APTT 53.0 Sec. (24.2-36.6) H 10/18/17 17:06 Sodium 134 mmol/L (137-145) L 10/22/17 06:17 Potassium 4.4 mmol/L (3.6-5.0) 10/22/17 06:17 Chloride 103.0 mmol/L (98-107) 10/22/17 06:17 Carbon Dioxide 13 mmol/L (22-30) L 10/22/17 06:17 Anion Gap 22 mmol/L 10/22/17 06:17 BUN 47 mg/dL (9-20) H 10/22/17 06:17 Creatinine 1.9 mg/dL (0.8-1.5) H 10/22/17 06:17 Estimated GFR 44 ml/min 10/22/17 06:17 BUN/Creatinine Ratio 25 % 10/22/17 06:17 Glucose 106 mg/dL (75-100) H 10/22/17 06:17 Calcium 8.3 mg/dL (8.4-10.2) L 10/22/17 06:17 Phosphorus 4.20 mg/dL (2.5-4.5) 10/19/17 19:19 Magnesium 2.20 mg/dL (1.7-2.3) 10/19/17 19:19 Total Bilirubin 19.40 mg/dL (0.1-1.2) H 10/22/17 06:17 AST 152 units/L (5-40) H 10/22/17 06:17 ALT 53 units/L (7-56) 10/22/17 06:17 Alkaline Phosphatase 85 units/L (35-129) 10/22/17 06:17 Ammonia 66.0 umol/L (25-60) H 10/19/17 11:10 Troponin T 0.031 ng/mL (0.00-0.029) H D 10/18/17 22:41 Total Protein 8.0 g/dL (6.3-8.2) 10/22/17 06:17 Albumin 2.3 g/dL (3.9-5) L 10/22/17 06:17 Albumin/Globulin Ratio 0.4 % 10/22/17 06:17 Triglycerides 262 mg/dL (2-149) H 10/18/17 17:06 Cholesterol 117 mg/dL (50-199) 10/18/17 17:06 LDL Cholesterol Direct 14 mg/dL (50-130) L 10/18/17 17:06 HDL Cholesterol 7 mg/dL (40-59) L 10/18/17 17:06 Cholesterol/HDL Ratio 16.71 % 10/18/17 17:06 Lipase 92 units/L (13-60) H 10/18/17 17:06 PTH Intact 48.07 pg/mL (15-65) 10/19/17 19:19 Urine Color Dark yellow (Yellow) 10/18/17 Unknown Urine Turbidity Clear (Clear) 10/18/17 Unknown Urine pH 6.0 (5.0-7.0) 10/18/17 Unknown Ur Specific [place] 1.008 (1.003-1.030) 10/18/17 Unknown Urine Protein <15 mg/dl mg/dL (Negative) 10/18/17 Unknown Urine Glucose (UA) Neg mg/dL (Negative) 10/18/17 Unknown Urine Ketones Neg mg/dL (Negative) 10/18/17 Unknown Urine Blood Sm (Negative) 10/18/17 Unknown Urine Nitrite Neg (Negative) 10/18/17 Unknown Urine Bilirubin Sm (Negative) 10/18/17 Unknown Urine Ictotest Positive (Negative) 10/18/17 Unknown Urine Urobilinogen 2.0 mg/dL (<2.0) 10/18/17 Unknown Ur Leukocyte Esterase Neg (Negative) 10/18/17 Unknown Urine WBC (Auto) 2.0 /HPF (0.0-6.0) 10/18/17 Unknown Urine RBC (Auto) 24.0 /HPF (0.0-6.0) 10/18/17 Unknown Urine Mucus Few /HPF 10/18/17 Unknown Urine Osmolality 330 Mosm/kg 10/20/17 01:44 Urine Creatinine 111.9 mg/dL (0.1-20.0) H 10/20/17 01:44 Urine Microalbumin 13.1 mg/dL (0.1-34.0) 10/20/17 01:44 Microalb/Creat Ratio 117.0 ug/mg 10/20/17 01:44 Urine Sodium 21 mmol/L 10/20/17 01:44 Urine Urea Nitrogen 484 10/20/17 01:44 Blood Type O POSITIVE 10/20/17 Unknown
[2017-10-22] MEDS: cefTRIAXone 1 GM in NACL 0.9% 20 ML IV SCH (12:53)
[2017-10-22] MEDS: SODIUM CHLORIDE FLUSH SYRINGE 10 ML IV SCH ×2 (12:54→22:00)
[2017-10-22] MEDS ORDERED: VITAMIN K *ORAL LIQUID PO ONE (14:00)
[2017-10-22] MEDS: SODIUM BICARBONATE PO SCH ×2 (14:56→23:32)
[2017-10-22] MEDS ORDERED: LASIX IV ONE (18:36)
--- NOTE | 2017-10-22 21:40 | XRay Report ---
FINAL REPORT PROCEDURE: Chest. TECHNIQUE: Portable AP view. HISTORY: Pulmonary edema. COMPARISON: Chest 10/18/2017. FINDINGS: The radiograph is slightly underpenetrated. The heart size is enlarged. Pulmonary vascularity is within normal limits. The lungs are grossly clear. There are no pleural effusions. The soft tissues and regional skeleton are unremarkable. IMPRESSION: Cardiomegaly.
[2017-10-22] MEDS ORDERED: ALDACTONE PO SCH (22:00)
[2017-10-22] MEDS ORDERED: MOTRIN PO PRN (22:53)
[2017-10-23] MEDS: ALBURX 25% (ALBUMIN) IV SCH (00:56)
[2017-10-23] MEDS ORDERED: NACL 0.9% 500 ML 500 ML ONE (01:51)
[2017-10-23 06:11] LABS: Hemoglobin 6.4 gm/dl (11.8-15.2); Mean Corpuscular HGB Conc 34 % (32-34); Mean Corpuscular Hemoglobin 33 pg (28-32); Mean Corpuscular Volume 97 fl (84-94); Platelet Count 138 K/mm3 (140-440); Red Blood Count 1.93 M/mm3 (3.65-5.03); Red Cell Distribution Width 15.5 % (13.2-15.2)
[2017-10-23 06:14] LABS: Hematocrit 18.7 % (35.5-45.6)
[2017-10-23 06:22] LABS: INR 1.46 (0.87-1.13)
[2017-10-23 06:39] LABS: Calcium 8.2 mg/dL (8.4-10.2)
[2017-10-23] MEDS ORDERED: NACL 0.9% 500 ML 500 ML IV ONE (06:39)
[2017-10-23] MEDS: DUONEB *Not for PRN Use IH SCH ×3 (07:37→19:59)
[2017-10-23] MEDS ORDERED: SODIUM BICARBONATE IV ONE ×2 (07:57→09:00)
[2017-10-23] MEDS: SODIUM BICARBONATE PO SCH ×3 (08:48→23:11)
--- NOTE | 2017-10-23 08:49 | Progress Note ---
Assessment and Plan Assessment and plan: This is a 57-year-old man was just discharged from the hospital, he was recently diagnosed with cirrhosis, quit alcohol use 20 days ago, to the hospital with right upper quadrant pain and chest pain, he stated he had these symptoms on the last admission and they have not improved. In addition his feet are swollen. He described the chest pain and right upper quadrant pain as a hurting pain, constant, intense in the 6/10, no radiation, he can identify exacerbating or relieving factor. He denies nausea vomiting, shortness of breath, diaphoresis or palpitation. Review of last visit work up showed that pathology indicative of Alcohol liver disease with no malignancy, outpatient GI and oncology eval was recommended. MRCP was also indicative of mild to moderate Ascities and Portal hypertension with esophageal and splenic varices. Patient on returning to the ER this time has noted, and Elevated Renal function, worsening lower ext swelling and elevated Troponin. Since admission and gastroenterology and cardiology have deferred to the primary for continued management GI started the patient on rifaximin and also try until due to high DF ratio. Patient unfortunately has not improved attempts for paracentesis was unremarkable due to very small ascites noted. Nephrology has been monitoring the patient although the patient is becoming increasingly short of breath with the addition of the abdomen challenge and attempts with Lasix IV LEAD TO worsening renal function. Decompensated Liver disease with Alcholic Cirrhosis and now some ascities KAMILAH possible Hepato-renal syndrome Acute respiratory failure Atypical Chest pain with Presumed Type 2 ND Anemia Secondary HyperCoagulopathy SIRS Secondary to Non infectious etiology. 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 * A dose of Lasix was given * We'll discuss with mucker cofferdam cancer. Chest x-ray showing cardiomegaly and admission reported shortness of breath with visible shallow breathing. * Prognosis remains guarded have discussed this with family. * Albumin challenge * Give Vitamin K AND FFP due to increased INR still persist * Continue on empiric Abx, leukocytosis improving * BB held due to hypotension * Continue lactulose and also seek possible ultrasound-guided paracentesis for diagnostic purposes * Rifaxmin and trantal started per GI * Monitor H/H * cardiology input, GI and will consult Renal NOTED * DVT/GI prophy * Plan of care discussed with the patient as stated. He understands and verbalized understanding of treatment plan. * Discussed in detail with patient and family * Poor prognosis Hospitalist Physical - Constitutional Vitals: Temp Pulse Resp BP Pulse Ox 98.3 F 85 20 112/62 97 10/23/17 08:11 10/23/17 08:11 10/23/17 08:11 10/23/17 08:11 10/23/17 08:11 General appearance: Present: no acute distress Results - Labs CBC & Chem 7: 10/23/17 05:34 10/23/17 05:34 Labs: Laboratory Last Values WBC 12.2 K/mm3 (4.5-11.0) H 10/23/17 05:34 RBC 1.93 M/mm3 (3.65-5.03) L 10/23/17 05:34 Hgb 6.4 gm/dl (11.8-15.2) L 10/23/17 05:34 Hct 18.7 % (35.5-45.6) L* 10/23/17 05:34 MCV 97 fl (84-94) H 10/23/17 05:34 MCH 33 pg (28-32) H 10/23/17 05:34 MCHC 34 % (32-34) 10/23/17 05:34 RDW 15.5 % (13.2-15.2) H 10/23/17 05:34 Plt Count 138 K/mm3 (140-440) L 10/23/17 05:34 Lymph % (Auto) 14.2 % (13.4-35.0) 10/20/17 04:55 [place] % (Auto) 7.4 % (0.0-7.3) H 10/20/17 04:55 Eos % (Auto) 1.6 % (0.0-4.3) 10/20/17 04:55 Baso % (Auto) 1.0 % (0.0-1.8) 10/20/17 04:55 Lymph # 2.1 K/mm3 (1.2-5.4) 10/20/17 04:55 [place] # 1.1 K/mm3 (0.0-0.8) H 10/20/17 04:55 Eos # 0.2 K/mm3 (0.0-0.4) 10/20/17 04:55 Baso # 0.1 K/mm3 (0.0-0.1) 10/20/17 04:55 Seg Neutrophils % 75.8 % (40.0-70.0) H 10/20/17 04:55 Seg Neutrophils # 11.0 K/mm3 (1.8-7.7) H 10/20/17 04:55 PT 18.6 Sec. (12.2-14.9) H 10/23/17 05:34 INR 1.46 (0.87-1.13) H 10/23/17 05:34 APTT 53.0 Sec. (24.2-36.6) H 10/18/17 17:06 Sodium 138 mmol/L (137-145) 10/23/17 05:34 Potassium 3.9 mmol/L (3.6-5.0) 10/23/17 05:34 Chloride 105.9 mmol/L (98-107) 10/23/17 05:34 Carbon Dioxide 13 mmol/L (22-30) L 10/23/17 05:34 Anion Gap 23 mmol/L 10/23/17 05:34 BUN 44 mg/dL (9-20) H 10/23/17 05:34 Creatinine 2.0 mg/dL (0.8-1.5) H 10/23/17 05:34 Estimated GFR 42 ml/min 10/23/17 05:34 BUN/Creatinine Ratio 22 % 10/23/17 05:34 Glucose 129 mg/dL (75-100) H 10/23/17 05:34 Calcium 8.2 mg/dL (8.4-10.2) L 10/23/17 05:34 Phosphorus 4.20 mg/dL (2.5-4.5) 10/19/17 19:19 Magnesium 2.20 mg/dL (1.7-2.3) 10/19/17 19:19 Total Bilirubin 19.40 mg/dL (0.1-1.2) H 10/22/17 06:17 AST 152 units/L (5-40) H 10/22/17 06:17 ALT 53 units/L (7-56) 10/22/17 06:17 Alkaline Phosphatase 85 units/L (35-129) 10/22/17 06:17 Ammonia 66.0 umol/L (25-60) H 10/19/17 11:10 Troponin T 0.031 ng/mL (0.00-0.029) H D 10/18/17 22:41 Total Protein 8.0 g/dL (6.3-8.2) 10/22/17 06:17 Albumin 2.3 g/dL (3.9-5) L 10/22/17 06:17 Albumin/Globulin Ratio 0.4 % 10/22/17 06:17 Triglycerides 262 mg/dL (2-149) H 10/18/17 17:06 Cholesterol 117 mg/dL (50-199) 10/18/17 17:06 LDL Cholesterol Direct 14 mg/dL (50-130) L 10/18/17 17:06 HDL Cholesterol 7 mg/dL (40-59) L 10/18/17 17:06 Cholesterol/HDL Ratio 16.71 % 10/18/17 17:06 Lipase 92 units/L (13-60) H 10/18/17 17:06 PTH Intact 48.07 pg/mL (15-65) 10/19/17 19:19 Urine Color Dark yellow (Yellow) 10/18/17 Unknown Urine Turbidity Clear (Clear) 10/18/17 Unknown Urine pH 6.0 (5.0-7.0) 10/18/17 Unknown Ur Specific [place] 1.008 (1.003-1.030) 10/18/17 Unknown Urine Protein <15 mg/dl mg/dL (Negative) 10/18/17 Unknown Urine Glucose (UA) Neg mg/dL (Negative) 10/18/17 Unknown Urine Ketones Neg mg/dL (Negative) 10/18/17 Unknown Urine Blood Sm (Negative) 10/18/17 Unknown Urine Nitrite Neg (Negative) 10/18/17 Unknown Urine Bilirubin Sm (Negative) 10/18/17 Unknown Urine Ictotest Positive (Negative) 10/18/17 Unknown Urine Urobilinogen 2.0 mg/dL (<2.0) 10/18/17 Unknown Ur Leukocyte Esterase Neg (Negative) 10/18/17 Unknown Urine WBC (Auto) 2.0 /HPF (0.0-6.0) 10/18/17 Unknown Urine RBC (Auto) 24.0 /HPF (0.0-6.0) 10/18/17 Unknown Urine Mucus Few /HPF 10/18/17 Unknown Urine Osmolality 330 Mosm/kg 10/20/17 01:44 Urine Creatinine 111.9 mg/dL (0.1-20.0) H 10/20/17 01:44 Urine Microalbumin 13.1 mg/dL (0.1-34.0) 10/20/17 01:44 Microalb/Creat Ratio 117.0 ug/mg 10/20/17 01:44 Urine Sodium 21 mmol/L 10/20/17 01:44 Urine Urea Nitrogen 484 10/20/17 01:44 Blood Type O POSITIVE 10/23/17 08:11 Crossmatch See Detail 10/23/17 08:11
--- NOTE | 2017-10-23 09:57 | Progress Note ---
Assessment and Plan Alcoholic Liver Cirrhosis with ascites: Jaundice: Abdominal Pain: On lactulose, zofran, rifaximine GI consulted, f/u recs Chest Pain: Per Cards Acute Kidney Injury possibly secondary to ATN, hypotension, questionable hepatorenal syndrome, possible underlying CKD process: Metabolic acidosis: Hypocalcemia: stable Cr since yesterday stopped Motrin, avoid NSAIDs Renally dose meds Obtain daily weight Strict intake and output Hyponatremia, Hyponatremia: secondary to cirrhosis fluid restriction, improving Hyperkalemia: low K diet Subjective Date of service: 10/23/17 Principal diagnosis: cirrhosis, jaundice Interval history: feels weak Objective - Vital Signs Vital signs: Vital Signs - 12hr 10/22/17 10/22/17 10/23/17 22:36 22:45 00:08 Temperature 100.9 F H 100.9 F H 100.3 F H Pulse Rate 104 H 103 H 101 H Pulse Rate [ Bilateral Throughout] Respiratory 18 18 18 Rate Respiratory Rate [Bilateral Throughout] Blood Pressure 127/63 132/70 Blood Pressure 127/63 [Right] O2 Sat by Pulse 96 93 97 Oximetry 10/23/17 10/23/17 10/23/17 00:49 00:57 01:01 Temperature 100.1 F H 100.1 F H 100.1 F H Pulse Rate 96 H 96 H 95 H Pulse Rate [ Bilateral Throughout] Respiratory 18 18 18 Rate Respiratory Rate [Bilateral Throughout] Blood Pressure 119/67 119/67 120/67 Blood Pressure [Right] O2 Sat by Pulse 96 97 Oximetry 10/23/17 10/23/17 10/23/17 01:31 02:24 02:31 Temperature 99.4 F 97.9 F 99.4 F Pulse Rate 94 H 92 H 96 H Pulse Rate [ Bilateral Throughout] Respiratory 18 18 18 Rate Respiratory Rate [Bilateral Throughout] Blood Pressure 112/65 114/65 108/62 Blood Pressure [Right] O2 Sat by Pulse 96 98 97 Oximetry 10/23/17 10/23/17 10/23/17 02:45 03:20 04:22 Temperature 98.8 F 98.5 F 98.3 F Pulse Rate 95 H 91 H 91 H Pulse Rate [ Bilateral Throughout] Respiratory 18 18 18 Rate Respiratory Rate [Bilateral Throughout] Blood Pressure 101/46 Blood Pressure 105/60 103/52 [Right] O2 Sat by Pulse 97 96 95 Oximetry 05/01/0310/23/17 10/23/17 06:19 07:37 07:47 Temperature 98.2 F Pulse Rate 86 Pulse Rate [ 81 84 Bilateral Throughout] Respiratory 18 Rate Respiratory 18 18 Rate [Bilateral Throughout] Blood Pressure Blood Pressure 109/58 [Right] O2 Sat by Pulse 98 Oximetry 10/23/17 08:11 Temperature 98.3 F Pulse Rate 85 Pulse Rate [ Bilateral Throughout] Respiratory 20 Rate Respiratory Rate [Bilateral Throughout] Blood Pressure 112/62 Blood Pressure [Right] O2 Sat by Pulse 97 Oximetry - General Appearance General appearance: cachectic EENT: sclera incterus Neck: no JVD Respiratory: Present: Decreased Breath Sounds Cardiology: tachycardia Gastrointestinal: distended Integumentary: no rash, warm and dry Neurologic: no focal deficit Musculoskeletal: other (trace pitting edema in BLE) Psychiatric: cooperative - Lab 10/23/17 05:34 10/23/17 05:34 Most recent lab results Calcium 8.2 mg/dL (8.4-10.2) L 10/23/17 05:34 Phosphorus 4.20 mg/dL (2.5-4.5) 10/19/17 19:19 Magnesium 2.20 mg/dL (1.7-2.3) 10/19/17 19:19 Urine Creatinine 111.9 mg/dL (0.1-20.0) H 10/20/17 01:44 Urine Sodium 21 mmol/L 10/20/17 01:44
[2017-10-23] MEDS: cefTRIAXone 1 GM in NACL 0.9% 20 ML IV SCH (10:05)
[2017-10-23] MEDS: XIFAXAN PO SCH ×2 (10:05→23:15)
[2017-10-23] MEDS: SODIUM CHLORIDE FLUSH SYRINGE 10 ML IV SCH ×2 (10:11→23:12)
--- NOTE | 2017-10-23 13:26 | Progress Note ---
Assessment and Plan Assessment and plan: This is a 57-year-old man was just discharged from the hospital, he was recently diagnosed with cirrhosis, quit alcohol use 20 days ago, to the hospital with right upper quadrant pain and chest pain, he stated he had these symptoms on the last admission and they have not improved. In addition his feet are swollen. He described the chest pain and right upper quadrant pain as a hurting pain, constant, intense in the 6/10, no radiation, he can identify exacerbating or relieving factor. He denies nausea vomiting, shortness of breath, diaphoresis or palpitation. Review of last visit work up showed that pathology indicative of Alcohol liver disease with no malignancy, outpatient GI and oncology eval was recommended. MRCP was also indicative of mild to moderate Ascities and Portal hypertension with esophageal and splenic varices. Patient on returning to the ER this time has noted, and Elevated Renal function, worsening lower ext swelling and elevated Troponin. Since admission and gastroenterology and cardiology have deferred to the primary for continued management GI started the patient on rifaximin and also try until due to high DF ratio. Patient unfortunately has not improved attempts for paracentesis was unremarkable due to very small ascites noted. Nephrology has been monitoring the patient although the patient is becoming increasingly short of breath with the addition of the abdomen challenge and attempts with Lasix IV LEAD TO worsening renal function. Decompensated Liver disease with Alcholic Cirrhosis and now some ascities KAMILAH possible Hepato-renal syndrome Acute respiratory failure Atypical Chest pain with Presumed Type 2 [place] Anemia Secondary HyperCoagulopathy SIRS Secondary to Non infectious etiology. 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 Chest x-ray showing cardiomegaly and admission reported shortness of breath with visible shallow breathing. * Prognosis remains guarded have discussed this with family. * Albumin challenge * Give Vitamin K AND FFP due to increased INR still persist * Continue on empiric Abx, leukocytosis improving * BB held due to hypotension * Continue lactulose and also seek possible ultrasound-guided paracentesis for diagnostic purposes * Rifaxmin and trantal started per GI * Monitor H/H * cardiology input, GI and will consult Renal NOTED * DVT/GI prophy * Plan of care discussed with the patient as stated. He understands and verbalized understanding of treatment plan. * Discussed in detail with patient and family * Poor prognosis * patient can be discharged in am following physical therapy eval History Interval history: Patient is seen today for: Decompensated cirrhosis with worsening edema Seen and examined at bedside; 24hour events reviewed; nursing staff ; no adverse overnight events reported to me; Denies any chest pain. still very lathergic,nausea, No vomiting,.Still with increasing abdominal girth. now with Diarrhea Continues with abdominal discomfort. Relates generalized 3/10 intensity No fever noted blood pressure controlled Hospitalist Physical - Physical exam Narrative exam: VITAL SIGNS: Reviewed. GENERAL: The patient appeared chronically ill and lathergic Vital signs as documented. HEAD: No signs of head trauma. EYES: Pupils are equal. Extraocular motions intact. Conjunctivae EARS: Hearing grossly intact. MOUTH: Oropharynx is normal. NECK: No adenopathy, no JVD. CHEST: Chest with clear breath sounds bilaterally. No wheezes, rales, or rhonchi. CARDIAC: Regular rate and rhythm. S1 and S2, without murmurs, gallops, or rubs. VASCULAR: 2+ pitting Edema. Peripheral pulses normal and equal in all extremities. ABDOMEN: Soft, without detectable tenderness. No sign of distention. No rebound or guarding, and no masses palpated. Bowel Sounds normal. MUSCULOSKELETAL: Good range of motion of all major joints. Extremities without clubbing, cyanosis. 2+ pitting edema. NEUROLOGIC EXAM: Alert and oriented x 3. No focal sensory or strength deficits. Speech normal. Follows commands. PSYCHIATRIC: Mood normal. SKIN: Jaundice - Constitutional Vitals: Temp Pulse Resp BP Pulse Ox 98.1 F 83 18 108/61 99 10/23/17 12:19 10/23/17 12:19 10/23/17 12:19 10/23/17 12:19 10/23/17 12:19 General appearance: Present: no acute distress Results - Labs CBC & Chem 7: 10/23/17 05:34 10/23/17 05:34 Labs: Laboratory Last Values WBC 12.2 K/mm3 (4.5-11.0) H 10/23/17 05:34 RBC 1.93 M/mm3 (3.65-5.03) L 10/23/17 05:34 Hgb 6.4 gm/dl (11.8-15.2) L 10/23/17 05:34 Hct 18.7 % (35.5-45.6) L* 10/23/17 05:34 MCV 97 fl (84-94) H 10/23/17 05:34 MCH 33 pg (28-32) H 10/23/17 05:34 MCHC 34 % (32-34) 10/23/17 05:34 RDW 15.5 % (13.2-15.2) H 10/23/17 05:34 Plt Count 138 K/mm3 (140-440) L 10/23/17 05:34 Lymph % (Auto) 14.2 % (13.4-35.0) 10/20/17 04:55 [place] % (Auto) 7.4 % (0.0-7.3) H 10/20/17 04:55 Eos % (Auto) 1.6 % (0.0-4.3) 10/20/17 04:55 Baso % (Auto) 1.0 % (0.0-1.8) 10/20/17 04:55 Lymph # 2.1 K/mm3 (1.2-5.4) 10/20/17 04:55 [place] # 1.1 K/mm3 (0.0-0.8) H 10/20/17 04:55 Eos # 0.2 K/mm3 (0.0-0.4) 10/20/17 04:55 Baso # 0.1 K/mm3 (0.0-0.1) 10/20/17 04:55 Seg Neutrophils % 75.8 % (40.0-70.0) H 10/20/17 04:55 Seg Neutrophils # 11.0 K/mm3 (1.8-7.7) H 10/20/17 04:55 PT 18.6 Sec. (12.2-14.9) H 10/23/17 05:34 INR 1.46 (0.87-1.13) H 10/23/17 05:34 APTT 53.0 Sec. (24.2-36.6) H 10/18/17 17:06 POC ABG pH 7.446 (7.35-7.45) 10/23/17 09:59 POC ABG pCO2 21.4 (35-45) L 10/23/17 09:59 POC ABG pO2 70 (80-105) L 10/23/17 09:59 POC ABG HCO3 14.7 10/23/17 09:59 POC ABG Total CO2 15 10/23/17 09:59 POC ABG O2 Sat 95 10/23/17 09:59 POC ABG Base Excess -9 10/23/17 09:59 FiO2 28 % 10/23/17 09:59 Sodium 138 mmol/L (137-145) 10/23/17 05:34 Potassium 3.9 mmol/L (3.6-5.0) 10/23/17 05:34 Chloride 105.9 mmol/L (98-107) 10/23/17 05:34 Carbon Dioxide 13 mmol/L (22-30) L 10/23/17 05:34 Anion Gap 23 mmol/L 10/23/17 05:34 BUN 44 mg/dL (9-20) H 10/23/17 05:34 Creatinine 2.0 mg/dL (0.8-1.5) H 10/23/17 05:34 Estimated GFR 42 ml/min 10/23/17 05:34 BUN/Creatinine Ratio 22 % 10/23/17 05:34 Glucose 129 mg/dL (75-100) H 10/23/17 05:34 Calcium 8.2 mg/dL (8.4-10.2) L 10/23/17 05:34 Phosphorus 4.20 mg/dL (2.5-4.5) 10/19/17 19:19 Magnesium 2.20 mg/dL (1.7-2.3) 10/19/17 19:19 Total Bilirubin 19.40 mg/dL (0.1-1.2) H 10/22/17 06:17 AST 152 units/L (5-40) H 10/22/17 06:17 ALT 53 units/L (7-56) 10/22/17 06:17 Alkaline Phosphatase 85 units/L (35-129) 10/22/17 06:17 Ammonia 66.0 umol/L (25-60) H 10/19/17 11:10 Troponin T 0.031 ng/mL (0.00-0.029) H D 10/18/17 22:41 Total Protein 8.0 g/dL (6.3-8.2) 10/22/17 06:17 Albumin 2.3 g/dL (3.9-5) L 10/22/17 06:17 Albumin/Globulin Ratio 0.4 % 10/22/17 06:17 Triglycerides 262 mg/dL (2-149) H 10/18/17 17:06 Cholesterol 117 mg/dL (50-199) 10/18/17 17:06 LDL Cholesterol Direct 14 mg/dL (50-130) L 10/18/17 17:06 HDL Cholesterol 7 mg/dL (40-59) L 10/18/17 17:06 Cholesterol/HDL Ratio 16.71 % 10/18/17 17:06 Lipase 92 units/L (13-60) H 10/18/17 17:06 PTH Intact 48.07 pg/mL (15-65) 10/19/17 19:19 Urine Color Dark yellow (Yellow) 10/18/17 Unknown Urine Turbidity Clear (Clear) 10/18/17 Unknown Urine pH 6.0 (5.0-7.0) 10/18/17 Unknown Ur Specific [place] 1.008 (1.003-1.030) 10/18/17 Unknown Urine Protein <15 mg/dl mg/dL (Negative) 10/18/17 Unknown Urine Glucose (UA) Neg mg/dL (Negative) 10/18/17 Unknown Urine Ketones Neg mg/dL (Negative) 10/18/17 Unknown Urine Blood Sm (Negative) 10/18/17 Unknown Urine Nitrite Neg (Negative) 10/18/17 Unknown Urine Bilirubin Sm (Negative) 10/18/17 Unknown Urine Ictotest Positive (Negative) 10/18/17 Unknown Urine Urobilinogen 2.0 mg/dL (<2.0) 10/18/17 Unknown Ur Leukocyte Esterase Neg (Negative) 10/18/17 Unknown Urine WBC (Auto) 2.0 /HPF (0.0-6.0) 10/18/17 Unknown Urine RBC (Auto) 24.0 /HPF (0.0-6.0) 10/18/17 Unknown Urine Mucus Few /HPF 10/18/17 Unknown Urine Osmolality 330 Mosm/kg 10/20/17 01:44 Urine Creatinine 111.9 mg/dL (0.1-20.0) H 10/20/17 01:44 Urine Microalbumin 13.1 mg/dL (0.1-34.0) 10/20/17 01:44 Microalb/Creat Ratio 117.0 ug/mg 10/20/17 01:44 Urine Sodium 21 mmol/L 10/20/17 01:44 Urine Urea Nitrogen 484 10/20/17 01:44 Blood Type O POSITIVE 10/23/17 08:11 Antibody Screen Negative 10/23/17 08:11 Crossmatch See Detail 10/23/17 08:11
[2017-10-23] MEDS: TRENTAL PO SCH ×2 (14:18→23:10)
[2017-10-23] MEDS: ALDACTONE PO SCH (14:18)
[2017-10-23] MEDS: TESSALON PERLES PO SCH ×2 (14:18→23:08)
--- NOTE | 2017-10-23 16:21 | Gastroenterology Progress Note ---
Assessment and Plan - Patient Problems (1) Hepatic encephalopathy Current Visit: Yes Status: Acute Plan to address problem: Much improved overall. Off Lactulose due to diarrhea. May need stool study if diarrhea persists tomorrow. (2) Cirrhosis Current Visit: Yes Status: Acute Qualifiers: Hepatic cirrhosis type: alcoholic cirrhosis Ascites presence: unspecified Qualified Code(s): K70.30 - Alcoholic cirrhosis of liver without ascites Plan to address problem: Advanced disease with superimposed severe ETOH hepatitis. Discussed diagnosis and uncertain prognosis with patient and visiting family. They are working with case management for disposition as he is approaching maximum benefit of hospitalization at this point and jaundice may last for months or be permanent. He was currently drinking heavily until the time of admission, but might eventually be a liver transplant candidate with engagement in both care and rehab activities. (3) Liver masses Current Visit: Yes Status: Acute (4) EtOH dependence Current Visit: No Status: Chronic Qualifiers: Substance use status: uncomplicated Qualified Code(s): F10.20 - Alcohol dependence, uncomplicated Subjective Date of service: 10/23/17 Principal diagnosis: cirrhosis, jaundice Interval history: The patient reports feeling OK. Diarrhea has improve. Reports eating well and taking a ride in the wheel chair with visiting family. Objective - Constitutional Vitals: Temp Pulse Resp BP Pulse Ox 97.8 F 83 20 105/57 98 10/23/17 15:19 10/23/17 14:18 10/23/17 15:19 10/23/17 15:19 10/23/17 12:49 General appearance: no acute distress - EENT Eyes: scleral icterus - Neck Neck: supple, normal ROM - Respiratory Respiratory effort: normal Respiratory: bilateral: CTA - Cardiovascular Rhythm: regular - Gastrointestinal General gastrointestinal: Present: soft, non-tender, non-distended, normal bowel sounds - Neurologic Neurological: alert and oriented x3, strength equal bilaterally - Labs CBC & Chem 7: 10/23/17 05:34 10/23/17 05:34 Labs: Laboratory Results - last 24 hr 10/22/17 10/23/17 10/23/17 17:48 05:34 05:34 WBC 12.2 H RBC 1.93 L Hgb 6.4 L Hct 18.7 L* MCV 97 H MCH 33 H MCHC 34 RDW 15.5 H Plt Count 138 L PT INR POC ABG pH POC ABG pCO2 POC ABG pO2 POC ABG HCO3 POC ABG Total CO2 POC ABG O2 Sat POC ABG Base Excess FiO2 Sodium 138 Potassium 3.9 Chloride 105.9 Carbon Dioxide 13 L Anion Gap 23 BUN 44 H Creatinine 2.0 H Estimated GFR 42 BUN/Creatinine Ratio 22 Glucose 129 H Calcium 8.2 L Ammonia Blood Type O POSITIVE Antibody Screen Crossmatch 10/23/17 10/23/17 10/23/17 05:34 08:11 09:59 WBC RBC Hgb Hct MCV MCH MCHC RDW Plt Count PT 18.6 H INR 1.46 H POC ABG pH 7.446 POC ABG pCO2 21.4 L POC ABG pO2 70 L POC ABG HCO3 14.7 POC ABG Total CO2 15 POC ABG O2 Sat 95 POC ABG Base Excess -9 FiO2 28 Sodium Potassium Chloride Carbon Dioxide Anion Gap BUN Creatinine Estimated GFR BUN/Creatinine Ratio Glucose Calcium Ammonia Blood Type O POSITIVE Antibody Screen Negative Crossmatch See Detail 10/23/17 15:03 WBC RBC Hgb Hct MCV MCH MCHC RDW Plt Count PT INR POC ABG pH POC ABG pCO2 POC ABG pO2 POC ABG HCO3 POC ABG Total CO2 POC ABG O2 Sat POC ABG Base Excess FiO2 Sodium Potassium Chloride Carbon Dioxide Anion Gap BUN Creatinine Estimated GFR BUN/Creatinine Ratio Glucose Calcium Ammonia 75.0 H Blood Type Antibody Screen Crossmatch
[2017-10-23] MEDS ORDERED: LASIX PO SCH (18:00)
[2017-10-23] MEDS: LASIX PO SCH (18:12)
[2017-10-24] MEDS ORDERED: BENADRYL IV ONE ×2 (00:51→03:00)
[2017-10-24 06:08] LABS: Hematocrit 23.2 % (35.5-45.6); Hemoglobin 7.9 gm/dl (11.8-15.2); Mean Corpuscular HGB Conc 34 % (32-34); Mean Corpuscular Hemoglobin 32 pg (28-32); Mean Corpuscular Volume 93 fl (84-94); Platelet Count 129 K/mm3 (140-440); Red Cell Distribution Width 16.8 % (13.2-15.2)
[2017-10-24 06:38] LABS: Calcium 8.2 mg/dL (8.4-10.2)
[2017-10-24] MEDS: TESSALON PERLES PO SCH (06:53)
[2017-10-24] MEDS: TRENTAL PO SCH (06:58)
[2017-10-24] MEDS: LASIX PO SCH (06:58)
[2017-10-24] MEDS: DUONEB *Not for PRN Use IH SCH ×2 (07:52→15:03)
--- NOTE | 2017-10-24 08:16 | Gastroenterology Progress Note ---
Assessment and Plan - Patient Problems (1) Hepatic encephalopathy Current Visit: Yes Status: Acute Plan to address problem: Clinically resolved. Will add back low dose lactulose, continue rifaxamin. (2) Cirrhosis Current Visit: Yes Status: Acute Qualifiers: Hepatic cirrhosis type: alcoholic cirrhosis Ascites presence: unspecified Qualified Code(s): K70.30 - Alcoholic cirrhosis of liver without ascites Plan to address problem: Advanced disease with a guarded prognosis at best. His progress will be slow due to severe ETOH hepatitis. Patient is on pentoxifylline. GI rosas there are no further therapeutics. Outpatient f/u 1-2 weeks post discharge is very important. (3) Liver masses Current Visit: Yes Status: Acute Plan to address problem: No definite masses on MRI, but quality of the study was suboptimal. (4) EtOH dependence Current Visit: No Status: Chronic Qualifiers: Substance use status: uncomplicated Qualified Code(s): F10.20 - Alcohol dependence, uncomplicated Subjective Date of service: 10/24/17 Principal diagnosis: cirrhosis, jaundice Interval history: The patient reports feeling weak, but no specific complaints overall. Diarrhea has resolved. Objective - Constitutional Vitals: Temp Pulse Resp BP Pulse Ox 98.4 F 87 18 110/66 98 10/23/17 21:13 10/24/17 07:57 10/24/17 07:57 10/23/17 21:13 10/24/17 08:00 General appearance: no acute distress - EENT Eyes: PERRL, EOM intact, scleral icterus - Respiratory Respiratory effort: normal Respiratory: bilateral: CTA - Cardiovascular Rhythm: regular - Gastrointestinal General gastrointestinal: Present: soft, non-tender, non-distended, normal bowel sounds - Integumentary Integumentary: Present: clear, warm, dry - Neurologic Neurological: alert and oriented x3 - Labs CBC & Chem 7: 10/24/17 05:07 10/24/17 05:07 Labs: Laboratory Results - last 24 hr 10/23/17 10/23/17 10/23/17 08:11 09:59 15:03 WBC RBC Hgb Hct MCV MCH MCHC RDW Plt Count POC ABG pH 7.446 POC ABG pCO2 21.4 L POC ABG pO2 70 L POC ABG HCO3 14.7 POC ABG Total CO2 15 POC ABG O2 Sat 95 POC ABG Base Excess -9 FiO2 28 Sodium Potassium Chloride Carbon Dioxide Anion Gap BUN Creatinine Estimated GFR BUN/Creatinine Ratio Glucose Calcium Ammonia 75.0 H Blood Type O POSITIVE Antibody Screen Negative Crossmatch See Detail 10/24/17 10/24/17 05:07 05:07 WBC 12.2 H RBC 2.50 L Hgb 7.9 L Hct 23.2 L MCV 93 MCH 32 MCHC 34 RDW 16.8 H Plt Count 129 L POC ABG pH POC ABG pCO2 POC ABG pO2 POC ABG HCO3 POC ABG Total CO2 POC ABG O2 Sat POC ABG Base Excess FiO2 Sodium 136 L Potassium 4.0 Chloride 104.6 Carbon Dioxide 15 L Anion Gap 20 BUN 43 H Creatinine 1.9 H Estimated GFR 44 BUN/Creatinine Ratio 23 Glucose 111 H Calcium 8.2 L Ammonia Blood Type Antibody Screen Crossmatch
[2017-10-24] MEDS: SODIUM BICARBONATE PO SCH (08:22)
--- NOTE | 2017-10-24 09:47 | Progress Note ---
Assessment and Plan Alcoholic Liver Cirrhosis with ascites: Jaundice: Abdominal Pain: On lactulose, zofran, rifaximine GI consulted, f/u recs Chest Pain: Per Cards Acute Kidney Injury possibly secondary to ATN, hypotension, questionable hepatorenal syndrome, possible underlying CKD process: Metabolic acidosis: Hypocalcemia: kidney function cont to be stable started on lasix and aldactone Ok to be discharged from renal standpoint, to be followed in my office upon discharge stopped Motrin, avoid NSAIDs Renally dose meds Obtain daily weight Strict intake and output Hyponatremia, Hyponatremia: secondary to cirrhosis fluid restriction Hyperkalemia: low K diet Subjective Date of service: 10/24/17 Principal diagnosis: cirrhosis, jaundice Interval history: more awake, requesting to go home, family at bedside, all questions answered Objective - Vital Signs Vital signs: Vital Signs - 12hr 10/23/17 10/24/17 10/24/17 22:00 07:52 07:57 Temperature 98.8 F Pulse Rate 96 H Pulse Rate [ 82 Apical] Pulse Rate [ 87 Bilateral Throughout] Pulse Rate [ 93 H Bilateral] Respiratory 24 18 Rate Respiratory 18 Rate [Bilateral Throughout] Respiratory 18 Rate [Bilateral ] Blood Pressure 134/77 O2 Sat by Pulse 100 97 Oximetry 10/24/17 08:00 Temperature Pulse Rate Pulse Rate [ Apical] Pulse Rate [ Bilateral Throughout] Pulse Rate [ Bilateral] Respiratory Rate Respiratory Rate [Bilateral Throughout] Respiratory Rate [Bilateral ] Blood Pressure O2 Sat by Pulse 98 Oximetry - General Appearance General appearance: well-developed EENT: ATNC, sclera incterus Neck: no JVD, no carotid bruit Respiratory: Present: Clear to Ascultation Cardiology: tachycardia Gastrointestinal: no tenderness, distended, no masses Integumentary: no rash, warm and dry Neurologic: no focal deficit Musculoskeletal: other (no edema in BLE) Psychiatric: cooperative - Lab 10/24/17 05:07 10/24/17 05:07 Most recent lab results Calcium 8.2 mg/dL (8.4-10.2) L 10/24/17 05:07 Phosphorus 4.20 mg/dL (2.5-4.5) 10/19/17 19:19 Magnesium 2.20 mg/dL (1.7-2.3) 10/19/17 19:19 Urine Creatinine 111.9 mg/dL (0.1-20.0) H 10/20/17 01:44 Urine Sodium 21 mmol/L 10/20/17 01:44
[2017-10-24] MEDS ORDERED: CEPHULAC PO SCH (10:00)
[2017-10-24] MEDS: XIFAXAN PO SCH (10:21)
[2017-10-24] MEDS: ALDACTONE PO SCH (10:21)
[2017-10-24] MEDS: SODIUM CHLORIDE FLUSH SYRINGE 10 ML IV SCH (10:22)
--- NOTE | 2017-10-24 12:02 | Discharge Summary ---
Providers - Providers Date of Admission: 10/19/17 03:12 Date of discharge: 10/24/17 Attending physician: DAPHNE PORTILLO 10/19/17 03:12 Consult to Physician [CONS] Routine Comment: Consulting Provider: MARILYN SALVADOR Physician Instructions: Reason For Exam: cirrhosis, ab pain 10/19/17 10:01 Consult to Physician [CONS] Routine Comment: Consulting Provider: ROSELINE HILL Physician Instructions: Reason For Exam: kamilah 10/23/17 13:23 Consult to Case Management [CONS] Routine Services Needed at Discharge: Fundraising Officer Notified:: cm Additional Physician Instructions: SNF placement Occupational Therapy Evaluate and Treat [CONS] Routine Comment: Reason For Exam: Rehab assessment Physical Therapy Evaluation and Treat [CONS] Routine Comment: Reason For Exam: REHAB ASSESSMENT Primary care physician: [employer] Hospitalization Condition: Stable Hospital course: Mr. Conway is a 57-year-old man was just discharged from the hospital, he was recently diagnosed with cirrhosis, quit alcohol use 20 days ago, to the hospital with right upper quadrant pain and chest pain, he stated he had these symptoms on the last admission and they have not improved. In addition his feet are swollen. He described the chest pain and right upper quadrant pain as a hurting pain, constant, intense in the 6/10, no radiation, he can identify exacerbating or relieving factor. He denies nausea vomiting, shortness of breath, diaphoresis or palpitation. Review of last visit work up showed that pathology indicative of Alcohol liver disease with no malignancy, outpatient GI and oncology eval was recommended. MRCP was also indicative of mild to moderate Ascities and Portal hypertension with esophageal and splenic varices. Patient on returning to the ER this time has noted, and Elevated Renal function, worsening lower ext swelling and elevated Troponin. Since admission and gastroenterology and cardiology have deferred to the primary for continued management GI started the patient on rifaximin and also try until due to high DF ratio. Patient unfortunately has not improved attempts for paracentesis was unremarkable due to very small ascites noted. Nephrology has been monitoring the patient although the patient is becoming increasingly short of breath with the addition of the abdomen challenge and attempts with Lasix IV LEAD TO worsening renal function. Decompensated Liver disease with Alcholic Cirrhosis and now some ascities KAMILAH possible Hepato-renal syndrome Acute respiratory failure Atypical Chest pain with Presumed Type 2 MN Anemia Secondary HyperCoagulopathy SIRS Secondary to Non infectious etiology. 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 Personal residential Disposition: [id number] ([facility]) Time spent for discharge: 34 minutes Core Measure Documentation - Palliative Care Palliative Care/ Comfort Measures: Hospice Care - Core Measures Any of the following diagnoses?: none - VTE Discharge Requirements Deep Vein Thrombosis/Pulmonary Embolism Present on Admission: No Has pt received <5 days of overlap therapy or INR<2.0: No Anticoagulant overlap therapy prescribed at discharge: No Contraindication No Overlap Therapy order at DC: Not Indicated Exam - Physical Exam Narrative exam: Jaundice is substantial Abd distension with tenderness - Constitutional Vitals: Temp Pulse Resp BP Pulse Ox 98.8 F 87 18 134/77 98 10/24/17 07:52 10/24/17 07:57 10/24/17 07:57 10/24/17 07:52 10/24/17 08:00 General appearance: Present: no acute distress - EENT Eyes: Present: PERRL, EOM intact ENT: hearing intact - Neck Neck: Present: supple, normal ROM - Respiratory Respiratory effort: normal Respiratory: bilateral: CTA - Cardiovascular Rhythm: regular Heart Sounds: Present: S1 & S2 Plan Follow up with: PRIMARY CARE, [Primary Care Provider] - 3-5 Days Prescriptions: ALBUTEROL NEB's [Proventil 0.083% NEBS] 2.5 mg IH Q4HRT PRN #30 nebu PRN Reason: Shortness Of Breath Benzonatate [Tessalon Perles] 100 mg PO Q8HR PRN #5 capsule PRN Reason: Cough Ciprofloxacin HCl [Ciprofloxacin TAB] 500 mg PO BID 2 Days tablet Furosemide [Lasix TAB] 20 mg PO 0600,1800 #30 tablet guaiFENesin [Robitussin] 200 mg PO BID PRN #30 oral.liqd PRN Reason: Cough Lactulose [Cephulac] 20 gm PO QDAY #30 oral.liqd Nadolol [Corgard] 20 mg PO QDAY #30 tablet Ondansetron [Zofran Odt] 4 mg PO Q12H PRN #4 tab.rapdis PRN Reason: Nausea Pentoxifylline [TRENtal] 400 mg PO Q8HR 30 Days tablet Rifaximin [Xifaxan] 550 mg PO BID #60 tablet Spironolactone [Aldactone] 25 mg PO QDAY #30 tablet Other Discharge Orders: Nebulizer (Amb) Location: None Selected
[2017-10-24 14:35] VITALS: BP 133/70
== END 2017-10-24 16:19 | disposition hospice, inpatient (51) | DRG 432 ==
LOC: ED 16:06 → 4A 10-19 03:12 → 3A 10-20 16:37
PROVIDERS: ADMIT Internal Medicine; ATTEND Internal Medicine
PROC: 30233L1 Transfusion of Nonautologous Fresh Plasma into Peripheral Vein, Percutaneous Approach (ICD-10-PCS; 2017-10-20)
PROC: 30233K1 Transfusion of Nonautologous Frozen Plasma into Peripheral Vein, Percutaneous Approach (ICD-10-PCS; 2017-10-20)
PROC: 4A033R1 Measurement of Arterial Saturation, Peripheral, Percutaneous Approach (ICD-10-PCS; principal; 2017-10-23)
PROC: 30233N1 Transfusion of Nonautologous Red Blood Cells into Peripheral Vein, Percutaneous Approach (ICD-10-PCS; 2017-10-23)
DX: K70.31 Alcoholic cirrhosis of liver with ascites (principal); K76.7 Hepatorenal syndrome; J96.00 Acute respiratory failure, unspecified whether with hypoxia or hypercapnia; I21.A1 Myocardial infarction type 2; G93.40 Encephalopathy, unspecified; N17.9 Acute kidney failure, unspecified; D68.69 Other thrombophilia; R65.10 Systemic inflammatory response syndrome (SIRS) of non-infectious origin without acute organ dysfunction; E87.1 Hypo-osmolality and hyponatremia; D64.9 Anemia, unspecified; I95.9 Hypotension, unspecified; K80.20 Calculus of gallbladder without cholecystitis without obstruction; D72.829 Elevated white blood cell count, unspecified; N18.9 Chronic kidney disease, unspecified; E87.5 Hyperkalemia; F10.20 Alcohol dependence, uncomplicated; Z82.49 Family history of ischemic heart disease and other diseases of the circulatory system
CPT/HCPCS: 36415; 36600; 71045; 74181; 76700; 76705; 80048; 80053; 80061; 81001; 82043; 82140; 82803; 83690; 83735; 83935; 83970; 84100; 84300; 84484; 84520; 85025; 85027; 85610; 85730; 86850; 86900; 86901; 86920; 93005; 93010; 93306; 94640; 94760; 96361; 96374; A6250; J0696; J1200; J1940; J2270; J3430; J7030; J7040; P9016; P9017; P9047